=== PATIENT | female | born 1960 | race African-American/Black ===

== ENCOUNTER 2016-12-24 23:49 | Inpatient (IN) | payer MEDICAID, OTHER ==
[~2016-12-24] VITALS: Ht 162.6 cm; Wt 63.5 kg
[~2016-12-24 23:49] MED LIST: AZITHROMYCIN250 MG ORAL; NORCO 5-325 TA1 EAC1 ORAL; PREDNISONE50 MG ORAL
[2016-12-25] VITALS (9 sets, daily range): BP systolic 110–156; BP diastolic 55–111
[2016-12-25 01:05] LABS: BASOPHILS % (AUTO) 1.7 % (0.0-2.0); EOSINOPHILS % (AUTO) 2.9 % (0.0-3.0); LYMPHOCYTES % (AUTO) 32.5 % (20.0-45.0); MEAN CORPUSCULAR HEMOGLOBIN 28.5 PG (27.0-31.0); MEAN CORPUSCULAR HGB CONC 32.4 G/DL (32.0-36.0); MEAN CORPUSCULAR VOLUME 88 FL (80-99); MEAN PLATELET VOLUME 9.8 FL (6.5-10.1); MONOCYTES % (AUTO) 8.8 % (1.0-10.0); PLATELET COUNT 226 K/UL (150-450); RED BLOOD COUNT 5.02 M/UL (4.20-5.40); RED CELL DISTRIBUTION WIDTH 19.4 % (11.6-14.8); WHITE BLOOD COUNT 8.2 K/UL (4.8-10.8)
[2016-12-25 01:27] LABS: ALANINE AMINOTRANSFERASE 17 U/L (3-33); ALBUMIN/GLOBULIN RATIO 0.9 (1.0-2.7); ANION GAP 20 (5-15); ASPARTATE AMINO TRANSFERASE 34 U/L (5-40); CALCIUM 9.2 mg/dL (8.6-10.2); CARBON DIOXIDE 21 mEQ/L (20-30); CHLORIDE 93 mEQ/L (98-107); CREATININE 1.7 mg/dL (0.5-0.9); GLOMERULAR FILTRATION RATE 37.9 mL/min (>60); HEMOLYSIS 133; POTASSIUM 5.2 mEQ/L (3.4-4.9); SODIUM 134 mEQ/L (135-145); TOTAL PROTEIN 8.3 g/dL (6.6-8.7)
[2016-12-25 01:32] LABS: APPEARANCE,URINE CLEAR; KETONES,URINE NEGATIVE (NEGATIVE); LEUKOCYTE ESTERASE ,URINE NEGATIVE (NEGATIVE); NITRITE,URINE NEGATIVE (NEGATIVE); PH,URINE 6.5 (4.5-8.0); UROBILINOGEN,URINE NORMAL MG/DL (0.0-1.0)
[2016-12-25 01:33] LABS: TROPONIN I < 0.30 ng/mL (<=0.30)
[2016-12-25 01:33] LABS: PROTEIN,URINE NEGATIVE (NEGATIVE)
[2016-12-25 02:32] LABS: CKMB 2.8 ng/mL (< 3.8)
[2016-12-25] MEDS ORDERED: Morphine Sulfate 4mg/ml Inj IVP ONE (04:15)
[2016-12-25] MEDS ORDERED: Sodium Polystyrene Sulfonate 15gm Powder ORAL ONE (04:15)
[2016-12-25] MEDS ORDERED: DiphenhydrAMINE 50mg/ml Inj IVP ONE (04:45)
[2016-12-25] MEDS ORDERED: VENTOLIN HFA18 GM INH (05:42)
[2016-12-25] MEDS ORDERED: BENAZEPRIL HCL20 MG ORAL (05:42)
[2016-12-25] MEDS ORDERED: DIGOXIN125 MCG ORAL (05:42)
[2016-12-25] MEDS ORDERED: AMLODIPINE BESYL5 MG ORAL (05:42)
[2016-12-25] MEDS ORDERED: FUROSEMIDE40 MG ORAL (05:42)
[2016-12-25] MEDS ORDERED: ATORVASTATIN CA20 MG ORAL (05:42)
[2016-12-25] MEDS ORDERED: OMEPRAZOLE20 M3 ORAL (05:42)
[2016-12-25] MEDS ORDERED: POTASSIUM CHLOR8 ME3 PO (05:42)
[2016-12-25] MEDS ORDERED: AZITHROMYCIN250 MG ORAL (05:42)
--- NOTE | 2016-12-25 06:26 | Emergency Room Report ---
History of Present Illness General Chief Complaint: Vomiting Source: Patient Present Illness HPI 55-year-old female presents to ED for evaluation. Patient states she's been feeling dizzy with vomiting x1 day. Feels weak. States she has a pacemaker. Feels palpitations at times. Denies any chest pain or shortness of breath. Denies any abdominal pain. No other aggravating or relieving factors. Denies any other associated symptoms Allergies: Coded Allergies: ASPIRIN (Unverified Allergy, Unknown, 10/13/14) PENICILLINS (Unverified Allergy, Unknown, 10/13/14) Patient History Past Medical History: HTN, COPD Past Surgical History: pacemaker Pertinent Family History: none Social History: Denies: alcohol use, drug use, smoking Now: No Immunizations: UTD Reviewed Nursing Documentation: PMH: Agreed, PSxH: Agreed Nursing Documentation-PMH Hx Hypertension: Yes Hx Pacemaker: Yes Hx Asthma: Yes Hx COPD: Yes Review of Systems All Other Systems: negative except mentioned in HPI Physical Exam Vital Signs Date Time Temp Pulse Resp B/P Pulse Ox O2 Delivery O2 Flow Rate FiO2 12/25/16 00:01 97.0 82 16 131/80 100 Room Air Sp02 EP Interpretation: reviewed, normal General Appearance: no apparent distress, alert, GCS 15, non-toxic Head: normocephalic, atraumatic Eyes: bilateral eye PERRL, bilateral eye normal inspection ENT: hearing grossly normal, normal pharynx, no angioedema, normal voice Neck: full range of motion, supple/symm/no masses Respiratory: chest non-tender, lungs clear, normal breath sounds, speaking full sentences Cardiovascular #1: regular rate, rhythm, no edema Cardiovascular #2: 2+ carotid (R), 2+ carotid (L), 2+ radial (R), 2+ radial (L) , 2+ dorsalis pedis (R), 2+ dorsalis pedis (L) Gastrointestinal: normal bowel sounds, non tender, soft, non-distended, no guarding, no rebound Rectal: deferred Genitourinary: normal inspection, no CVA tenderness Musculoskeletal: back normal, gait/station normal, normal range of motion, non- tender Neurologic: alert, oriented x3, responsive, motor strength/tone normal, sensory intact, speech normal Psychiatric: judgement/insight normal, memory normal, mood/affect normal, no suicidal/homicidal ideation Reflexes: 3+ bicep (R), 3+ bicep (L), 3+ tricep (R), 3+ tricep (L), 3+ knee (R) , 3+ knee (L) Skin: normal color, no rash, warm/dry, well hydrated Lymphatic: no adenopathy Medical Decision Making Diagnostic Impression: Primary Impression: Palpitations Additional Impressions: Dizziness ARF (acute renal failure) Qualified Codes: N17.9 - Acute kidney failure, unspecified Hyperkalemia, diminished renal excretion ER Course Hospital Course 55-year-old female presents ED complaining of dizziness, nausea, palpitations Differential diagnoses include: MN/unstable angina, dehydration, arrythmia Clinical course Patient placed on 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 After initial history and physical I ordered labs, EKG, chest x-ray, IVFs, zofran labs reviewed- no leukocytosis, hb/hct stable, Cr 1.7, K 5.2, trop negative EKG - LBBB, no ischemic changes Chest x-ray- cardiomegaly. pacemaker given kayexelate Case discussed with and he agreed to accept the patient to his service for further care and support I. I feel this is a highly complex case requiring extensive working including EKG/Rhythm strip, Xray/CT/US, Blood/urine lab work, repeat exams while in ED, and administration of strong opiates/narcotics for pain control, admission to hospital or close patient follow up. Diagnosis - palptations, dizziness, ARF, hyperkalemia admitted to telemetry in serious condition Labs Test 12/25/16 00:50 12/25/16 01:08 White Blood Count 8.2 K/UL (4.8-10.8) Red Blood Count 5.02 M/UL (4.20-5.40) Hemoglobin 14.3 G/DL (12.0-16.0) Hematocrit 44.3 % (37.0-47.0) Mean Corpuscular Volume 88 FL (80-99) Mean Corpuscular Hemoglobin 28.5 PG (27.0-31.0) Mean Corpuscular Hemoglobin Concent 32.4 G/DL (32.0-36.0) Red Cell Distribution Width 19.4 % (11.6-14.8) Platelet Count 226 K/UL (150-450) Mean Platelet Volume 9.8 FL (6.5-10.1) Neutrophils (%) (Auto) 54.0 % (45.0-75.0) Lymphocytes (%) (Auto) 32.5 % (20.0-45.0) Monocytes (%) (Auto) 8.8 % (1.0-10.0) Eosinophils (%) (Auto) 2.9 % (0.0-3.0) Basophils (%) (Auto) 1.7 % (0.0-2.0) Sodium Level 134 mEQ/L (135-145) Potassium Level 5.2 mEQ/L (3.4-4.9) Chloride Level 93 mEQ/L (98-107) Carbon Dioxide Level 21 mEQ/L (20-30) Anion Gap 20 (5-15) Blood Urea Nitrogen 32 mg/dL (7-23) Creatinine 1.7 mg/dL (0.5-0.9) Estimat Glomerular Filtration Rate 37.9 mL/min (>60) Glucose Level 99 mg/dL (74-106) Calcium Level 9.2 mg/dL (8.6-10.2) Total Bilirubin < 0.2 mg/dL (0.0-1.2) Aspartate Amino Transf (AST/SGOT) 34 U/L (5-40) Alanine Aminotransferase (ALT/SGPT) 17 U/L (3-33) Alkaline Phosphatase 110 U/L (35-104) Total Creatine Kinase 67 U/L (26-140) Creatine Kinase MB 2.8 ng/mL (< 3.8) Creatine Kinase MB Relative Index 4.1 Troponin I < 0.30 ng/mL (<=0.30) Total Protein 8.3 g/dL (6.6-8.7) Albumin 4.0 g/dL (3.5-5.2) Globulin 4.3 g/dL Albumin/Globulin Ratio 0.9 (1.0-2.7) Urine Color Pale yellow Urine Appearance Clear Urine pH 6.5 (4.5-8.0) Urine Specific [place] 1.005 (1.005-1.035) Urine Protein Negative (NEGATIVE) Urine Glucose (UA) Negative (NEGATIVE) Urine Ketones Negative (NEGATIVE) Urine Occult Blood Negative (NEGATIVE) Urine Nitrite Negative (NEGATIVE) Urine Bilirubin Negative (NEGATIVE) Urine Urobilinogen Normal MG/DL (0.0-1.0) Urine Leukocyte Esterase Negative (NEGATIVE) EKG Diagnostic Results Rate: normal Rhythm: NSR ST Segments: other - LBBB ASA given to the pt in ED: No Rhythm Strip Diag. Results EP Interpretation: yes Rhythm: NSR, no PVC's, no ectopy Chest X-Ray Diagnostic Results EP Interpretation: Yes Findings: no pneumothorax, no acute cardiopulmonary disease, other - cardiomegaly. pacemaker. Number of Views: 1 Last Vital Signs Date Time Temp Pulse Resp B/P Pulse Ox O2 Delivery O2 Flow Rate FiO2 12/25/16 04:50 97.0 12/25/16 04:10 87 18 138/68 100 Room Air Status: improved Disposition: ADMITTED INPATIENT Condition: Serious Referrals: [facility],REFERRING (PCP) ANNA MAIRE MONTOYA M.D. December 25, 2016 06:26
--- NOTE | 2016-12-25 07:42 | Cardiology Progress Note ---
Assessment/Plan Assessment/Plan fall non sycopal htn med noncompliance renal insuf ? chronicity hs of icd implantation chf hyperlipidemia obesity asthma is walking in sue halls not appear in any respiratory distress hold dig check level resume lasix if ok with renal resume acei echo repeat labs in am [id number] Objective Last 24 Hour Vital Signs Date Time Temp Pulse Resp B/P Pulse Ox O2 Delivery O2 Flow Rate FiO2 12/25/16 07:33 96.9 93 18 111/70 100 Room Air 12/25/16 06:48 97.4 88 20 130/77 98 Room Air 12/25/16 06:25 97.0 83 17 137/71 100 Room Air 12/25/16 06:10 97.6 83 17 137/71 100 Room Air 12/25/16 04:50 97.0 12/25/16 04:10 97.5 87 18 138/68 100 Room Air 12/25/16 02:10 97.5 81 18 133/81 100 Room Air 12/25/16 00:10 97.0 78 16 131/80 100 Room Air 12/25/16 00:01 97.0 82 16 131/80 100 Room Air Intake and Output 12/24/16 12/25/16 19:00 07:00 Intake Total 500 ml Balance 500 ml Intake IV Total 500 ml # Voids 2 Laboratory Tests Test 12/25/16 00:50 12/25/16 01:08 White Blood Count 8.2 K/UL (4.8-10.8) Red Blood Count 5.02 M/UL (4.20-5.40) Hemoglobin 14.3 G/DL (12.0-16.0) Hematocrit 44.3 % (37.0-47.0) Mean Corpuscular Volume 88 FL (80-99) Mean Corpuscular Hemoglobin 28.5 PG (27.0-31.0) Mean Corpuscular Hemoglobin Concent 32.4 G/DL (32.0-36.0) Red Cell Distribution Width 19.4 % (11.6-14.8) H Platelet Count 226 K/UL (150-450) Mean Platelet Volume 9.8 FL (6.5-10.1) Neutrophils (%) (Auto) 54.0 % (45.0-75.0) Lymphocytes (%) (Auto) 32.5 % (20.0-45.0) Monocytes (%) (Auto) 8.8 % (1.0-10.0) Eosinophils (%) (Auto) 2.9 % (0.0-3.0) Basophils (%) (Auto) 1.7 % (0.0-2.0) Sodium Level 134 mEQ/L (135-145) L Potassium Level 5.2 mEQ/L (3.4-4.9) H Chloride Level 93 mEQ/L (98-107) L Carbon Dioxide Level 21 mEQ/L (20-30) Anion Gap 20 (5-15) H Blood Urea Nitrogen 32 mg/dL (7-23) H Creatinine 1.7 mg/dL (0.5-0.9) H Estimat Glomerular Filtration Rate 37.9 mL/min (>60) Glucose Level 99 mg/dL (74-106) Calcium Level 9.2 mg/dL (8.6-10.2) Total Bilirubin < 0.2 mg/dL (0.0-1.2) Aspartate Amino Transf (AST/SGOT) 34 U/L (5-40) Alanine Aminotransferase (ALT/SGPT) 17 U/L (3-33) Alkaline Phosphatase 110 U/L (35-104) H Total Creatine Kinase 67 U/L (26-140) Creatine Kinase MB 2.8 ng/mL (< 3.8) Creatine Kinase MB Relative Index 4.1 Troponin I < 0.30 ng/mL (<=0.30) Total Protein 8.3 g/dL (6.6-8.7) Albumin 4.0 g/dL (3.5-5.2) Globulin 4.3 g/dL Albumin/Globulin Ratio 0.9 (1.0-2.7) L Urine Color Pale yellow Urine Appearance Clear Urine pH 6.5 (4.5-8.0) Urine Specific [place] 1.005 (1.005-1.035) Urine Protein Negative (NEGATIVE) Urine Glucose (UA) Negative (NEGATIVE) Urine Ketones Negative (NEGATIVE) Urine Occult Blood Negative (NEGATIVE) Urine Nitrite Negative (NEGATIVE) Urine Bilirubin Negative (NEGATIVE) Urine Urobilinogen Normal MG/DL (0.0-1.0) Urine Leukocyte Esterase Negative (NEGATIVE) JAQUELINE BARRAZA December 25, 2016 07:42
[2016-12-25] MEDS ORDERED: Norco 5mg/325mg tab ORAL PRN (08:00)
[2016-12-25] MEDS ORDERED: Mylanta II UD 30ml ORAL PRN (08:00)
[2016-12-25] MEDS ORDERED: Metoclopramide 10mg/2ml Inj IVP PRN (08:00)
[2016-12-25] MEDS ORDERED: Nitroglycerin Subl 0.4mg tab (Bottle Of 25) SL PRN (08:00)
[2016-12-25] MEDS ORDERED: LORazepam Inj 2mg/ml 1ml IV PRN (08:00)
[2016-12-25] MEDS ORDERED: Lisinopril 20mg tab ORAL SCH (09:00)
[2016-12-25] MEDS ORDERED: Digoxin 0.125mg tab ORAL SCH (09:00)
[2016-12-25] MEDS: Pantoprazole Inj IV SCH (09:07)
[2016-12-25] MEDS: PREDNISONE 50 MG ORAL SCH (09:07)
[2016-12-25] MEDS: D5 1/2NS 1,000 ML IV SCH ×2 (09:08→21:47)
[2016-12-25] MEDS: Heparin 5000 units/ml inj SUBQ SCH ×2 (09:15→20:45)
[2016-12-25] MEDS: Morphine Sulfate 2mg/ml Inj IVP PRN ×3 (09:23→23:48)
[2016-12-25 11:31] LABS: ALANINE AMINOTRANSFERASE 15 U/L (3-33); ALBUMIN/GLOBULIN RATIO 1.1 (1.0-2.7); ANION GAP 15 (5-15); ASPARTATE AMINO TRANSFERASE 27 U/L (5-40); CALCIUM 9.1 mg/dL (8.6-10.2); CARBON DIOXIDE 25 mEQ/L (20-30); CHLORIDE 100 mEQ/L (98-107); CREATININE 1.5 mg/dL (0.5-0.9); GLOMERULAR FILTRATION RATE 43.9 mL/min (>60); HEMOLYSIS 0; MAGNESIUM 1.9 mg/dL (1.7-2.5); POTASSIUM 4.4 mEQ/L (3.4-4.9); SODIUM 140 mEQ/L (135-145); TOTAL PROTEIN 7.6 g/dL (6.6-8.7); URIC ACID 10.7 mg/dL (3.0-7.5)
[2016-12-25] MEDS: Albuterol 90mcg Inhaler 8gm INH SCH ×3 (12:04→23:41)
--- NOTE | 2016-12-25 12:32 | Diagnostic Imaging Report ---
Indication: Chest pain Technique: One view of the chest Comparison: 10/13/2014 Findings: The heart is enlarged. Again demonstrated is a left chest biventricular AICD. No definite acute infiltrates, effusions, or congestion. Impression: Cardiomegaly. No definite acute process
--- NOTE | 2016-12-25 13:02 | GI Initial Consult Note ---
History of Present Illness General Date patient seen: December 25, 2016 Time patient seen: 12:00 Reason for Hospitalization: Vomiting Referring physician: YENY SAXNEA Reason for Consultation: VOMITING x 2 days Present Illness HPI 55-year-old female presents to ED for evaluation. Patient states she's been feeling dizzy with vomiting x1 day. Feels weak. States she has a pacemaker. Feels palpitations at times. Denies any chest pain or shortness of breath. Denies any abdominal pain. No other aggravating or relieving factors. Denies any other associated symptoms. GI CONSULT: HPI noted above. GI consulted for vomiting x 2 days. Pt seen on floor, awake A&Ox4 NAD with no active s/sx of N/V/D. Denies any hematemesis or coffee grounds. Denies any dietary changes or recent travels. MJ user. Pt presents today with unremarkable CBC, elevated alkaline phosphatase, and electrolyte imbalance. Per patient has history of gastric ulcers by endoscopy. Denies any previous colonoscopy. Home Meds Active Scripts Hydrocodone Bit/Acetaminophen 5-325* (NORCO 5-325 TABLET*) 1 Each Tablet, 1 TAB ORAL Q4H Y for For Pain, #10 TAB Prov:JOSE WINSTONO. 10/13/14 Prednisone* (PREDNISONE*) 50 Mg Tablet, 50 MG ORAL DAILY, #7 TAB 0 Refills Prov:JOSE WINSTONO. 10/13/14 Azithromycin* (ZITHROMAX*) 250 Mg Tablet, 250 MG ORAL DAILY, #6 TAB Take two tablets by mouth today, then take one tablet by mouth daily for four days Prov:JOSE WINSTON D.O. 10/13/14 Reported Medications Benazepril Hcl* (BENAZEPRIL HCL*) 20 Mg Tablet, 20 MG ORAL DAILY, TAB 12/25/16 Potassium Chloride (POTASSIUM CHLORIDE) 8 Meq Tablet.er, 8 MEQ PO DAILY, TAB 12/25/16 Digoxin* (DIGOXIN*) 125 Mcg Tablet, 125 MCG ORAL DAILY, TAB 12/25/16 Amlodipine Besylate* (AMLODIPINE BESYLATE*) 5 Mg Tablet, 5 MG ORAL DAILY, TAB 12/25/16 Atorvastatin Calcium* (ATORVASTATIN CALCIUM*) 20 Mg Tablet, 10 MG ORAL BEDTIME, TAB 12/25/16 Azithromycin* (ZITHROMAX*) 250 Mg Tablet, 250 MG ORAL DAILY, TAB 12/25/16 Omeprazole (OMEPRAZOLE) 20 Mg Tablet.dr, 20 MG ORAL DAILY, TAB 12/25/16 Albuterol Sulfate (VENTOLIN HFA) 18 Gm Hfa.aer.ad, 2 PUFFS INH EVERY 6 HOURS, # 18 GM 0 Refills 12/25/16 Furosemide* (LASIX*) 40 Mg Tablet, 40 MG ORAL DAILY, TAB 12/25/16 Med list reviewed/reconciled: Yes Allergies: Coded Allergies: ASPIRIN (Unverified Allergy, Unknown, 10/13/14) PENICILLINS (Unverified Allergy, Unknown, 10/13/14) Patient History History Provided By: Patient, Medical Record PMH Narrative Past Medical History: HTN, COPD Past Surgical History: pacemaker Pertinent Family History: none Social History: Denies: alcohol use, drug use, smoking Now: No Immunizations: UTD Reviewed Nursing Documentation: PMH: Agreed, PSxH: Agreed Nursing Documentation-PMH Hx Hypertension: Yes Hx Pacemaker: Yes Hx Asthma: Yes Hx COPD: Yes Social History: Reports: alcohol use - occasional, drug use - MJ Review of Systems All Other Systems: limited Physical Exam Vital Signs Date Time Temp Pulse Resp B/P Pulse Ox O2 Delivery O2 Flow Rate FiO2 12/25/16 00:01 97.0 82 16 131/80 100 Room Air 12/25/16 12:05 21 Sp02 EP Interpretation: reviewed Labs Laboratory Tests Test 12/25/16 00:50 12/25/16 01:08 12/25/16 11:00 12/25/16 12:45 White Blood Count 8.2 K/UL (4.8-10.8) Red Blood Count 5.02 M/UL (4.20-5.40) Hemoglobin 14.3 G/DL (12.0-16.0) Hematocrit 44.3 % (37.0-47.0) Mean Corpuscular Volume 88 FL (80-99) Mean Corpuscular Hemoglobin 28.5 PG (27.0-31.0) Mean Corpuscular Hemoglobin Concent 32.4 G/DL (32.0-36.0) Red Cell Distribution Width 19.4 % (11.6-14.8) H Platelet Count 226 K/UL (150-450) Mean Platelet Volume 9.8 FL (6.5-10.1) Neutrophils (%) (Auto) 54.0 % (45.0-75.0) Lymphocytes (%) (Auto) 32.5 % (20.0-45.0) Monocytes (%) (Auto) 8.8 % (1.0-10.0) Eosinophils (%) (Auto) 2.9 % (0.0-3.0) Basophils (%) (Auto) 1.7 % (0.0-2.0) Sodium Level 134 mEQ/L (135-145) L 140 mEQ/L (135-145) Potassium Level 5.2 mEQ/L (3.4-4.9) H 4.4 mEQ/L (3.4-4.9) Chloride Level 93 mEQ/L (98-107) L 100 mEQ/L (98-107) Carbon Dioxide Level 21 mEQ/L (20-30) 25 mEQ/L (20-30) Anion Gap 20 (5-15) H 15 (5-15) Blood Urea Nitrogen 32 mg/dL (7-23) H 25 mg/dL (7-23) H Creatinine 1.7 mg/dL (0.5-0.9) H 1.5 mg/dL (0.5-0.9) H Estimat Glomerular Filtration Rate 37.9 mL/min (>60) 43.9 mL/min (>60) Glucose Level 99 mg/dL (74-106) 82 mg/dL (74-106) Calcium Level 9.2 mg/dL (8.6-10.2) 9.1 mg/dL (8.6-10.2) Total Bilirubin < 0.2 mg/dL (0.0-1.2) < 0.2 mg/dL (0.0-1.2) Aspartate Amino Transf (AST/SGOT) 34 U/L (5-40) 27 U/L (5-40) Alanine Aminotransferase (ALT/SGPT) 17 U/L (3-33) 15 U/L (3-33) Alkaline Phosphatase 110 U/L (35-104) H 102 U/L (35-104) Total Creatine Kinase 67 U/L (26-140) 62 U/L (26-140) Creatine Kinase MB 2.8 ng/mL (< 3.8) Creatine Kinase MB Relative Index 4.1 Troponin I < 0.30 ng/mL (<=0.30) Total Protein 8.3 g/dL (6.6-8.7) 7.6 g/dL (6.6-8.7) Albumin 4.0 g/dL (3.5-5.2) 4.0 g/dL (3.5-5.2) Globulin 4.3 g/dL 3.6 g/dL Albumin/Globulin Ratio 0.9 (1.0-2.7) L 1.1 (1.0-2.7) Urine Color Pale yellow Urine Appearance Clear Urine pH 6.5 (4.5-8.0) Urine Specific [place] 1.005 (1.005-1.035) Urine Protein Negative (NEGATIVE) Urine Glucose (UA) Negative (NEGATIVE) Urine Ketones Negative (NEGATIVE) Urine Occult Blood Negative (NEGATIVE) Urine Nitrite Negative (NEGATIVE) Urine Bilirubin Negative (NEGATIVE) Urine Urobilinogen Normal MG/DL (0.0-1.0) Urine Leukocyte Esterase Negative (NEGATIVE) Plasma/Serum Osmolality Pending Uric Acid 10.7 mg/dL (3.0-7.5) H Phosphorus Level 3.0 mg/dL (2.5-4.8) Magnesium Level 1.9 mg/dL (1.7-2.5) Thyroid Stimulating Hormone (TSH) 1.190 uIU/mL (0.300-4.500) Free Thyroxine 1.53 ng/dL (0.86-1.85) Free Triiodothyronine Pending Cortisol Pending Digoxin Level 0.3 ng/mL (0.5-2.0) L Urine Random Chloride Pending General Appearance: well appearing, no apparent distress, alert Head: normocephalic EENT: normal ENT inspection Neck: full range of motion Respiratory: normal breath sounds Cardiovascular: normal rate Gastrointestinal: normal inspection, non tender, soft Rectal: normal exam Musculoskeletal: normal inspection Neurologic: normal inspection, alert, oriented x3, responsive Psychiatric: normal inspection, judgement/insight normal, memory normal Skin: normal inspection, normal color, no rash Lymphatic: normal inspection, no adenopathy Current Medications Current Medications Medications (Trade) Dose Ordered Sig/Dino Route PRN Reason Start Time Stop Time Status Last Admin Dose Admin Acetaminophen (Tylenol) 650 mg Q4H PRN ORAL fever>100.5 12/25/16 08:00 01/24/17 07:59 Acetaminophen/ Hydrocodone Bitart ([place] 5/325) 1 tab Q4H PRN ORAL Moderate Pain (Pain Scale 4-6) 12/25/16 08:00 01/01/17 07:59 Al Hydroxide/Mg Hydroxide (Mylanta II) 30 ml Q6H PRN ORAL dyspepsia 12/25/16 08:00 01/24/17 07:59 Albuterol Sulfate (Proventil MDI) 2 puff EVERY 6 HOURS INH 12/25/16 12:00 01/24/17 11:59 12/25/16 12:04 Amlodipine Besylate (Norvasc) 5 mg DAILY ORAL 12/25/16 09:00 01/24/17 08:59 12/25/16 09:07 Atorvastatin Calcium (Lipitor) 10 mg BEDTIME ORAL 12/25/16 21:00 01/24/17 20:59 Dextrose (Dextrose 50%) STAT PRN IV Hypoglycemia 12/25/16 08:00 01/24/17 07:59 Dextrose/Sodium Chloride (D5 0.45% NS) 1,000 ml @ 75 mls/hr [id number] IV 12/25/16 09:00 01/24/17 08:59 12/25/16 09:08 Diphenhydramine HCl (Benadryl) 25 mg Q6H PRN ORAL Itching/Pruritis 12/25/16 08:00 01/24/17 07:59 Heparin Sodium (Porcine) (Heparin 5000 units/ml) 5,000 units EVERY 12 HOURS SUBQ 12/25/16 09:00 01/24/17 08:59 12/25/16 09:15 Lisinopril (Prinivil) 20 mg DAILY ORAL 12/25/16 09:00 01/24/17 08:59 12/25/16 09:07 Lorazepam (Ativan 2mg/ml 1ml) 1 mg Q4H PRN IV agitation 12/25/16 08:00 01/01/17 07:59 Metoclopramide HCl (Reglan) 5 mg Q6H PRN IVP Severe nausea 12/25/16 08:00 01/24/17 07:59 Morphine Sulfate (Morphine Sulfate) 2 mg Q4H PRN IVP severe Pain (Pain Scale 7-10) 12/25/16 08:00 01/01/17 07:59 12/25/16 09:23 Nitroglycerin (Ntg) 0.4 mg Q5M X 3 DOSES PRN SL Prn Chest Pain 12/25/16 08:00 01/24/17 07:59 Ondansetron HCl (Zofran) 4 mg Q6H PRN IVP Nausea & Vomiting 12/25/16 08:00 01/24/17 07:59 12/25/16 09:23 Pantoprazole (Protonix) 40 mg DAILY IV 12/25/16 09:00 01/24/17 08:59 12/25/16 09:07 Polyethylene Glycol (Miralax) 17 gm HSPRN PRN ORAL Constipation 12/25/16 21:00 01/24/17 20:59 Prednisone 50 mg 50 mg DAILY ORAL 12/25/16 09:00 01/24/17 08:59 12/25/16 09:07 Promethazine HCl (Phenergan) 25 mg EVERY 8 HOURS PRN IV refractory nausea 12/25/16 08:00 01/24/17 07:59 Temazepam (Restoril) 15 mg HSPRN PRN ORAL Insomnia 12/25/16 21:00 01/01/17 20:59 GI: Plan Problems: (1) Vomiting (2) Electrolyte imbalance (3) Nausea (4) Hyperkalemia, diminished renal excretion Plan EGD scheduled for tomorrow. - cardiac diet, NPO @ MN. - hold all blood thinners. ordered utox zofran prn electrolyte replacement ppi fu lipase fu labs fu abd U/S recommend initial outpatient colonoscopy screening Discussed with Dr. Whitmore. Thank you for referring this patient, we will follow. Susan Ball N.P. December 25, 2016 13:02
--- NOTE | 2016-12-25 13:32 | Diagnostic Imaging Report ---
Indication: Abnormal liver function tests and renal function tests Technique: Schwab-scale and duplex images of the upper abdomen were obtained Comparison: None Findings: Gallbladder is unremarkable, without stones, wall thickening, nor pericholecystic fluid. Sonographic Gould's sign is negative. Common bile duct measures 3 mm in diameter. No intrahepatic biliary ductal dilatation. Liver demonstrates normal echogenicity, no focal abnormality. Portal vein and hepatic veins are patent. Pancreas is unremarkable. Spleen is unremarkable. Left kidney measures 8.9 cm in length. Right kidney measures 10.1 cm length. Both kidneys demonstrate normal echogenicity. There is no hydronephrosis. No focal abnormality. Unremarkable urinary bladder. Abdominal aorta is partially obscured by bowel gas, visualized portions are non-aneurysmal . There is a questionable ventral hernia Impression: Negative for gallstones or dilated ducts Equivocal ventral hernia Note incomplete visualization of the distal bowel aorta
--- NOTE | 2016-12-25 13:36 | History and Physical ---
History of Present Illness General Date patient seen: December 25, 2016 Reason for Hospitalization: Vomiting Present Illness HPI 55-year-old female with hx of ICD, cardiomyopathy presents to ED for evaluation of feeling dizzy with vomiting x1 day and with palpitations at times. Denies any chest pain or shortness of breath. Denies any abdominal pain. No other aggravating or relieving factors. Denies any other associated symptoms Allergies: Coded Allergies: ASPIRIN (Unverified Allergy, Unknown, 10/13/14) PENICILLINS (Unverified Allergy, Unknown, 10/13/14) Medication History Scheduled Albuterol Sulfate (Ventolin Hfa), 2 PUFFS INH EVERY 6 HOURS, (Reported) Amlodipine Besylate* (Amlodipine Besylate*), 5 MG ORAL DAILY, (Reported) Atorvastatin Calcium* (Atorvastatin Calcium*), 10 MG ORAL BEDTIME, (Reported) Azithromycin* (Zithromax*), 250 MG ORAL DAILY Azithromycin* (Zithromax*), 250 MG ORAL DAILY, (Reported) Benazepril Hcl* (Benazepril Hcl*), 20 MG ORAL DAILY, (Reported) Digoxin* (Digoxin*), 125 MCG ORAL DAILY, (Reported) Furosemide* (Lasix*), 40 MG ORAL DAILY, (Reported) Omeprazole (Omeprazole), 20 MG ORAL DAILY, (Reported) Potassium Chloride (Potassium Chloride), 8 MEQ PO DAILY, (Reported) Prednisone* (Prednisone*), 50 MG ORAL DAILY Scheduled PRN Hydrocodone Bit/Acetaminophen 5-325* (Parmelee 5-325 Tablet*), 1 TAB ORAL Q4H PRN for For Pain Patient History Healthcare decision maker Resuscitation status Full Code Advanced Directive on File Review of Systems All Other Systems: negative except mentioned in HPI Physical Exam General Appearance: WD/WN Lines, tubes and drains: peripheral HEENT: normocephalic, atraumatic Neck: non-tender, normal alignment Respiratory/Chest: chest wall non-tender, lungs clear Cardiovascular/Chest: normal peripheral pulses, normal rate Abdomen: normal bowel sounds, non tender, hyperactive bowel sounds Extremities: normal range of motion Last 24 Hour Vital Signs Date Time Temp Pulse Resp B/P Pulse Ox O2 Delivery O2 Flow Rate FiO2 12/25/16 12:06 78 18 96 Room Air 21 12/25/16 12:05 78 18 95 Room Air 21 12/25/16 12:00 85 12/25/16 11:37 96.8 83 18 117/55 100 Room Air 12/25/16 09:07 111/70 12/25/16 09:07 93 111/70 12/25/16 08:00 103 12/25/16 07:33 96.9 93 18 111/70 100 Room Air 12/25/16 06:48 97.4 88 20 130/77 98 Room Air 12/25/16 06:25 97.0 83 17 137/71 100 Room Air 12/25/16 06:10 97.6 83 17 137/71 100 Room Air 12/25/16 04:50 97.0 12/25/16 04:10 97.5 87 18 138/68 100 Room Air 12/25/16 02:10 97.5 81 18 133/81 100 Room Air 12/25/16 00:10 97.0 78 16 131/80 100 Room Air 12/25/16 00:01 97.0 82 16 131/80 100 Room Air Intake and Output 12/24/16 12/25/16 19:00 07:00 Intake Total 500 ml Balance 500 ml IV Total 500 ml # Voids 2 Laboratory Tests Test 12/25/16 00:50 12/25/16 01:08 12/25/16 11:00 12/25/16 12:45 White Blood Count 8.2 K/UL (4.8-10.8) Red Blood Count 5.02 M/UL (4.20-5.40) Hemoglobin 14.3 G/DL (12.0-16.0) Hematocrit 44.3 % (37.0-47.0) Mean Corpuscular Volume 88 FL (80-99) Mean Corpuscular Hemoglobin 28.5 PG (27.0-31.0) Mean Corpuscular Hemoglobin Concent 32.4 G/DL (32.0-36.0) Red Cell Distribution Width 19.4 % (11.6-14.8) H Platelet Count 226 K/UL (150-450) Mean Platelet Volume 9.8 FL (6.5-10.1) Neutrophils (%) (Auto) 54.0 % (45.0-75.0) Lymphocytes (%) (Auto) 32.5 % (20.0-45.0) Monocytes (%) (Auto) 8.8 % (1.0-10.0) Eosinophils (%) (Auto) 2.9 % (0.0-3.0) Basophils (%) (Auto) 1.7 % (0.0-2.0) Sodium Level 134 mEQ/L (135-145) L 140 mEQ/L (135-145) Potassium Level 5.2 mEQ/L (3.4-4.9) H 4.4 mEQ/L (3.4-4.9) Chloride Level 93 mEQ/L (98-107) L 100 mEQ/L (98-107) Carbon Dioxide Level 21 mEQ/L (20-30) 25 mEQ/L (20-30) Anion Gap 20 (5-15) H 15 (5-15) Blood Urea Nitrogen 32 mg/dL (7-23) H 25 mg/dL (7-23) H Creatinine 1.7 mg/dL (0.5-0.9) H 1.5 mg/dL (0.5-0.9) H Estimat Glomerular Filtration Rate 37.9 mL/min (>60) 43.9 mL/min (>60) Glucose Level 99 mg/dL (74-106) 82 mg/dL (74-106) Calcium Level 9.2 mg/dL (8.6-10.2) 9.1 mg/dL (8.6-10.2) Total Bilirubin < 0.2 mg/dL (0.0-1.2) < 0.2 mg/dL (0.0-1.2) Aspartate Amino Transf (AST/SGOT) 34 U/L (5-40) 27 U/L (5-40) Alanine Aminotransferase (ALT/SGPT) 17 U/L (3-33) 15 U/L (3-33) Alkaline Phosphatase 110 U/L (35-104) H 102 U/L (35-104) Total Creatine Kinase 67 U/L (26-140) 62 U/L (26-140) Creatine Kinase MB 2.8 ng/mL (< 3.8) Creatine Kinase MB Relative Index 4.1 Troponin I < 0.30 ng/mL (<=0.30) Total Protein 8.3 g/dL (6.6-8.7) 7.6 g/dL (6.6-8.7) Albumin 4.0 g/dL (3.5-5.2) 4.0 g/dL (3.5-5.2) Globulin 4.3 g/dL 3.6 g/dL Albumin/Globulin Ratio 0.9 (1.0-2.7) L 1.1 (1.0-2.7) Urine Color Pale yellow Urine Appearance Clear Urine pH 6.5 (4.5-8.0) Urine Specific [place] 1.005 (1.005-1.035) Urine Protein Negative (NEGATIVE) Urine Glucose (UA) Negative (NEGATIVE) Urine Ketones Negative (NEGATIVE) Urine Occult Blood Negative (NEGATIVE) Urine Nitrite Negative (NEGATIVE) Urine Bilirubin Negative (NEGATIVE) Urine Urobilinogen Normal MG/DL (0.0-1.0) Urine Leukocyte Esterase Negative (NEGATIVE) Plasma/Serum Osmolality Pending Uric Acid 10.7 mg/dL (3.0-7.5) H Phosphorus Level 3.0 mg/dL (2.5-4.8) Magnesium Level 1.9 mg/dL (1.7-2.5) Thyroid Stimulating Hormone (TSH) 1.190 uIU/mL (0.300-4.500) Free Thyroxine 1.53 ng/dL (0.86-1.85) Free Triiodothyronine Pending Cortisol Pending Digoxin Level 0.3 ng/mL (0.5-2.0) L Urine Random Chloride Pending Height (Feet): 5 Height (Inches): 4.00 Weight (Pounds): 140 Medications Current Medications Medications (Trade) Dose Ordered Sig/Dino Route PRN Reason Start Time Stop Time Status Last Admin Dose Admin Acetaminophen (Tylenol) 650 mg Q4H PRN ORAL fever>100.5 12/25/16 08:00 01/24/17 07:59 Acetaminophen/ Hydrocodone Bitart (Parmelee 5/325) 1 tab Q4H PRN ORAL Moderate Pain (Pain Scale 4-6) 12/25/16 08:00 01/01/17 07:59 Al Hydroxide/Mg Hydroxide (Mylanta II) 30 ml Q6H PRN ORAL dyspepsia 12/25/16 08:00 01/24/17 07:59 Albuterol Sulfate (Proventil MDI) 2 puff EVERY 6 HOURS INH 12/25/16 12:00 01/24/17 11:59 12/25/16 12:04 Amlodipine Besylate (Norvasc) 5 mg DAILY ORAL 12/25/16 09:00 01/24/17 08:59 12/25/16 09:07 Atorvastatin Calcium (Lipitor) 10 mg BEDTIME ORAL 12/25/16 21:00 01/24/17 20:59 Dextrose (Dextrose 50%) STAT PRN IV Hypoglycemia 12/25/16 08:00 01/24/17 07:59 Dextrose/Sodium Chloride (D5 0.45% NS) 1,000 ml @ 75 mls/hr [id number] IV 12/25/16 09:00 01/24/17 08:59 12/25/16 09:08 Diphenhydramine HCl (Benadryl) 25 mg Q6H PRN ORAL Itching/Pruritis 12/25/16 08:00 01/24/17 07:59 12/25/16 12:58 Heparin Sodium (Porcine) (Heparin 5000 units/ml) 5,000 units EVERY 12 HOURS SUBQ 12/25/16 09:00 01/24/17 08:59 12/25/16 09:15 Lisinopril (Prinivil) 20 mg DAILY ORAL 12/25/16 09:00 01/24/17 08:59 12/25/16 09:07 Lorazepam (Ativan 2mg/ml 1ml) 1 mg Q4H PRN IV agitation 12/25/16 08:00 01/01/17 07:59 Metoclopramide HCl (Reglan) 5 mg Q6H PRN IVP Severe nausea 12/25/16 08:00 01/24/17 07:59 Morphine Sulfate (Morphine Sulfate) 2 mg Q4H PRN IVP severe Pain (Pain Scale 7-10) 12/25/16 08:00 01/01/17 07:59 12/25/16 09:23 Nitroglycerin (Ntg) 0.4 mg Q5M X 3 DOSES PRN SL Prn Chest Pain 12/25/16 08:00 01/24/17 07:59 Ondansetron HCl (Zofran) 4 mg Q6H PRN IVP Nausea & Vomiting 12/25/16 08:00 01/24/17 07:59 12/25/16 09:23 Pantoprazole (Protonix) 40 mg DAILY IV 12/25/16 09:00 01/24/17 08:59 12/25/16 09:07 Polyethylene Glycol (Miralax) 17 gm HSPRN PRN ORAL Constipation 12/25/16 21:00 01/24/17 20:59 Prednisone 50 mg 50 mg DAILY ORAL 12/25/16 09:00 01/24/17 08:59 12/25/16 09:07 Promethazine HCl (Phenergan) 25 mg EVERY 8 HOURS PRN IV refractory nausea 12/25/16 08:00 01/24/17 07:59 Temazepam (Restoril) 15 mg HSPRN PRN ORAL Insomnia 12/25/16 21:00 01/01/17 20:59 Assessment/Plan Problem List: (1) Vomiting ICD Codes: R11.10 - Vomiting, unspecified SNOMED: 809219632 (2) ARF (acute renal failure) ICD Codes: N17.9 - Acute kidney failure, unspecified SNOMED: 60296845 Qualifiers: Qualified Codes: N17.9 - Acute kidney failure, unspecified (3) ICD (implantable cardioverter-defibrillator) in place ICD Codes: Z95.810 - Presence of automatic (implantable) cardiac defibrillator SNOMED: 750238764, [id number] (4) Cardiomyopathy ICD Codes: I42.9 - Cardiomyopathy, unspecified SNOMED: 91234580 Assessment/Plan IV fluids NPO GI evaluaiton cardio to see BRENDA GRANGER December 25, 2016 13:36
--- NOTE | 2016-12-25 14:44 | Consultation ---
Consult Note Consult Note Chief Complaint: Vomiting HPI 55-year-old female presents to ED for evaluation. Patient states she's been feeling dizzy with vomiting x1 day. Feels weak. States she has a pacemaker. Feels palpitations at times. Denies any chest pain or shortness of breath. Denies any abdominal pain. No other aggravating or relieving factors. Denies any other associated symptoms Allergies: ASPIRIN (Unverified Allergy, Unknown, 10/13/14) PENICILLINS (Unverified Allergy, Unknown, 10/13/14) Past Medical History: HTN, COPD Past Surgical History: pacemaker Social History: Denies: alcohol use, drug use, smoking Hx Hypertension: Yes Hx Pacemaker: Yes Hx Asthma: Yes Hx COPD: Yes . Assessment/Plan (1) Vomiting palpitation and dizziness are the initial presentation: Findings: (2) ARF (acute renal failure), High K : due to Lasix and Willie inhibitors (3) ICD (implantable cardioverter-defibrillator) in place (4) Cardiomyopathy and low Ej Fx 45% Plan: Slow Hydrate- monitor renal parameter avoid nephrotoxics Optimize cardiac and pulmonary status; taper steroids. MARTA CORADO December 25, 2016 14:44
[2016-12-25 15:29] LABS: APPEARANCE,URINE CLEAR; KETONES,URINE NEGATIVE (NEGATIVE); LEUKOCYTE ESTERASE ,URINE NEGATIVE (NEGATIVE); NITRITE,URINE NEGATIVE (NEGATIVE); PH,URINE 7 (4.5-8.0); PROTEIN,URINE 2+ (NEGATIVE); UROBILINOGEN,URINE NORMAL MG/DL (0.0-1.0)
--- NOTE | 2016-12-25 15:31 | Consultation ---
DATE OF CONSULTATION: 12/25/2016 CARDIOLOGY CONSULTATION: REFERRING PHYSICIAN: Mellisa Ko M.D. REASON FOR REFERRAL: Shortness of breath. HISTORY OF PRESENT ILLNESS: This is a 55-year-old female who has a history of she calls of pacemaker implantation and ran out of her medications for blood pressure approximately two days ago. fell. She has been short of breath for few days. She does have occasionally waking up at night because of shortness of breath. She cannot lay flat because dizziness. She has occasional palpitations. She really did not have any chest pain. She has dyspnea on exertion as well. PAST MEDICAL HISTORY: Positive for high blood pressure and high cholesterol. No prior heart attacks, although she has a pacemaker " implantation". No cancer. No stroke. No hepatitis or tuberculosis. She does have history of asthma. She does have history of peptic ulcer disease. She kidneys problems before. No thyroid problems, anemia, arthritis, or blood clots. ALLERGIES: She is allergic to aspirin and penicillin. SOCIAL HISTORY: She quit smoking number of years ago. She drinks alcoholic beverages. She used marijuana before. REVIEW OF SYSTEMS: GI: Negative. Genitourinary: Negative. Pulmonary: Positive for coughing and wheezing. Constitutional: She has had some fevers and has some chills . PHYSICAL EXAMINATION: GENERAL: Shows to be elderly female overweight, in no respiratory distress. VITAL SIGNS: The patient's blood pressure is 130/77 with a heart rate of 88, temperature of 97.8 degrees, and 98% saturation on room air. NECK: Supple. No jugular venous distention. LUNGS: Clear breath sounds although decreased on the bases bilaterally. CARDIAC: Regular rate and rhythm. No heaves, thrills, or rubs are noted. ABDOMEN: Soft and obese. Positive bowel sounds. EXTREMITIES: Really, no significant clubbing, cyanosis, nor there is no any edema. NEUROLOGIC: She is awake, alert, responsive, and in no apparent respiratory distress. LABORATORY AND DIAGNOSTIC DATA: Chest x-ray is apparently been performed although I am unable to download the study on the computer system. The emergency room physician read it as showing cardiomegaly and pacemaker. Her prior chest x-ray she has a defibrillator implantation. Her EKG shows changes consistent with left bundle-branch conduction defect and comparison with her old EKG in 2013 appears relatively unchanged. White count 8.2, hemoglobin 14.3, and platelet count 226,000. Sodium 134, potassium 5.2, chloride 92, bicarbonate 21, BUN 32, creatinine 1.7, and glucose of 99. The first set of troponin is negative. UA is unremarkable. ASSESSMENT: 1. Nonsyncopal fall. 2. Hypertension. 3. Noncompliance with medications. 4. Acute renal insufficiency , unknown chronicity. 5. History of Implantable cardioverter-defibrillator implantation. 6. Congestive heart failure . 7. Hyperlipidemia. 8. Obesity . 9. Asthma. PLAN: Dr. Ko, this patient was seen in cardiac consultation. The patient is actually walking around the hospital, but does not appear to be in any respiratory distress. Echocardiogram is pending. Digoxin was ordered, but I Digoxin level. Resume with Nephrology. Resume REJI inhibitors. Echocardiogram will be ordered. Repeat labs in the morning. Ralph Parada M.D. DR: Lucio JOB#: [id number] CC:
[2016-12-25 15:56] LABS: RBC,URINE 0-2 /HPF (0 - 2); WBC,URINE 0 /HPF (0 - 2)
[2016-12-25] MEDS ORDERED: D5 1/2NS 1000ml IV ONE (17:51)
--- NOTE | 2016-12-25 18:33 | Cardiology Report ---
APPROVED REPORT EKG Measurement Heart [id number] Sinus rhythm with 1st degree AV block Biatrial enlargement Left bundle branch block Abnormal ECG
[2016-12-25] MEDS ORDERED: Miralax 17gm pkt ORAL PRN (21:00)
[2016-12-26] VITALS (11 sets, daily range): BP systolic 101–156; BP diastolic 51–111
[2016-12-26] MEDS: Morphine Sulfate 2mg/ml Inj IVP PRN ×2 (05:35→09:49)
--- NOTE | 2016-12-26 06:27 | Anethesia Preoperative Eval ---
Anesthesia Pre-op PMH/ROS General Date of Evaluation: December 26, 2016 Time of Evaluation: 08:00 Anesthesiologist: rafal ASA Score: ASA 3 Mallampati Score Class I : Soft palate, uvula, fauces, pillars visible Class II: Soft palate, uvula, fauces visible Class III: Soft palate, base of uvula visible Class IV: Only hard plate visible Mallampati Classification: Class II Surgeon: marguerite Diagnosis: ulcers Surgical Procedure: EGD diagnostic Anesthesia History: none Allergies: Coded Allergies: ASPIRIN (Unverified Allergy, Unknown, 10/13/14) PENICILLINS (Unverified Allergy, Unknown, 10/13/14) Medications: see eMAR Past Medical History Cardiovascular: Reports: HTN, other - pacemaker Pulmonary: Reports: COPD, asthma Gastrointestinal/Genitourinary: Reports: other - ulcers Musculoskeletal/Integumentary: Reports: other - back pain, hx/o leg fx repair PSxH Narrative: appy, leg fx rpair Anesthesia Pre-op Phys. Exam Physician Exam Last Vital Signs Date Time Temp Pulse Resp B/P Pulse Ox O2 Delivery O2 Flow Rate FiO2 12/26/16 06:05 97.4 12/26/16 04:00 75 12/26/16 04:00 20 101/51 99 Room Air 12/25/16 23:43 21 Constitutional: NAD Neurologic: CN 2-12 intact Cardiovascular: RRR Respiratory: CTA Gastrointestinal: S/NT/ND Airway Exam Mallampati Score: Class II MO: limited Neck: supple Teeth: missing Anesthesia Pre-op A/P Labs Chemistry Test 12/25/16 11:00 12/26/16 04:00 Sodium Level 140 mEQ/L (135-145) Potassium Level 4.4 mEQ/L (3.4-4.9) Chloride Level 100 mEQ/L (98-107) Carbon Dioxide Level 25 mEQ/L (20-30) Anion Gap 15 (5-15) Blood Urea Nitrogen 25 mg/dL (7-23) H Creatinine 1.5 mg/dL (0.5-0.9) H Estimat Glomerular Filtration Rate 43.9 mL/min (>60) Glucose Level 82 mg/dL (74-106) Uric Acid 10.7 mg/dL (3.0-7.5) H Calcium Level 9.1 mg/dL (8.6-10.2) Phosphorus Level 3.0 mg/dL (2.5-4.8) Magnesium Level 1.9 mg/dL (1.7-2.5) Total Bilirubin < 0.2 mg/dL (0.0-1.2) Aspartate Amino Transf (AST/SGOT) 27 U/L (5-40) Alanine Aminotransferase (ALT/SGPT) 15 U/L (3-33) Alkaline Phosphatase 102 U/L (35-104) Total Creatine Kinase 62 U/L (26-140) Total Protein 7.6 g/dL (6.6-8.7) Albumin 4.0 g/dL (3.5-5.2) Globulin 3.6 g/dL Albumin/Globulin Ratio 1.1 (1.0-2.7) Thyroid Stimulating Hormone (TSH) 1.190 uIU/mL (0.300-4.500) Free Thyroxine 1.53 ng/dL (0.86-1.85) Plasma/Serum Osmolality Pending Free Triiodothyronine Pending Cortisol Pending Risk Assessment & Plan Assessment: 55 y/o female with hx/o ulcer Status Change Before Surgery: No Pre-Antibiotics Drug: AROLDO Olivo December 26, 2016 06:27
[2016-12-26] MEDS ORDERED: Propofol 10mg/ml 20ml IV ONE (08:00)
[2016-12-26] MEDS ORDERED: Lidocaine 1% MPF 10mg/ml 5ml ONE (08:00)
--- NOTE | 2016-12-26 08:06 | Pre-Procedure Note/Attestation ---
Pre-Procedure Note/Attestation Complete Prior to Procedure Planned Procedure: not applicable Procedure Narrative: egd Indications for Procedure Pre-Operative Diagnosis: abd pain Attestation I attest that I discussed the nature of the procedure; its benefits; risks and complications; and alternatives (and the risks and benefits of such alternatives ), prior to the procedure, with the patient (or the patient's legal aircraft sales representative). I attest that, if there was a reasonable possibility of needing a blood transfusion, the patient (or the patient's legal aircraft sales representative) was given the [facility] standardized written summary, pursuant to the Oleg Devi Blood Safety Act ([place] Health and Safety Code # 1645, as amended). I attest that I re-evaluated the patient just prior to the surgery and that there has been no change in the patient's H&P, except as documented below: JAMES MORA December 26, 2016 08:05
[2016-12-26] MEDS: Heparin 5000 units/ml inj SUBQ SCH ×2 (08:07→20:45)
[2016-12-26] MEDS ORDERED: NS 550ML IV ONE (08:10)
[2016-12-26 08:13] LABS: BASOPHILS % (AUTO) 1.5 % (0.0-2.0); EOSINOPHILS % (AUTO) 0.2 % (0.0-3.0); LYMPHOCYTES % (AUTO) 23.7 % (20.0-45.0); MEAN CORPUSCULAR HEMOGLOBIN 28.4 PG (27.0-31.0); MEAN CORPUSCULAR HGB CONC 32.2 G/DL (32.0-36.0); MEAN CORPUSCULAR VOLUME 88 FL (80-99); MEAN PLATELET VOLUME 10.8 FL (6.5-10.1); MONOCYTES % (AUTO) 8.8 % (1.0-10.0); NEUTROPHILS % (AUTO) 65.8 % (45.0-75.0); PLATELET COUNT 192 K/UL (150-450); RED BLOOD COUNT 4.57 M/UL (4.20-5.40); WHITE BLOOD COUNT 7.4 K/UL (4.8-10.8)
[2016-12-26 08:25] LABS: CALCIUM 9.3 mg/dL (8.6-10.2); CREATININE 1.3 mg/dL (0.5-0.9); GLOMERULAR FILTRATION RATE 51.8 mL/min (>60); POTASSIUM 3.6 mEQ/L (3.4-4.9); TOTAL PROTEIN 7.2 g/dL (6.6-8.7)
--- NOTE | 2016-12-26 08:29 | Endoscopy Procedure Note ---
Endoscopy Procedure Note Indication for Procedure: abd pain Procedures Performed: EGD Operative Findings/Diagnosis: gastritis Specimen: yes Pt Tolerated Procedure Well: Yes Estimated Blood Loss: none Anesthesiologist: guido Anesthesia: MAC Implant(s) used?: No 50 yrs or older w/o bx or poly: Not Applicable 10yrs. F/U not recommended: Not Applicable JAMES MORA December 26, 2016 08:29
--- NOTE | 2016-12-26 08:47 | Immediate Post-Op Evaluation ---
Immediate Post-Op Evalulation Immediate Post-Op Evalulation Procedure: AROLDO Pina December 26, 2016 08:47
--- NOTE | 2016-12-26 08:51 | Immediate Post-Op Evaluation ---
Immediate Post-Op Evalulation Immediate Post-Op Evalulation Procedure: egd Date of Evaluation: December 26, 2016 Time of Evaluation: 08:49 IV Fluids: 0.9ns 100ml Blood Products: na Estimated Blood Loss: negligible Blood Pressure Systolic: 132 Blood Pressure Diastolic: 89 Pulse Rate: 89 Respiratory Rate: 18 O2 Sat by Pulse Oximetry: 99 Temperature (Fahrenheit): 97.2 Pain Score (1-10): 0 Nausea: No Vomiting: No Complications none Patient Status: awake, reacts, patent Hydration Status: adequate Drug: none AROLDO BIRCH December 26, 2016 08:51
[2016-12-26] MEDS ORDERED: Norco 5mg/325mg tab ORAL PRN (09:00)
[2016-12-26] MEDS ORDERED: Lisinopril 20mg tab ORAL SCH (09:00)
[2016-12-26] MEDS ORDERED: LORazepam Inj 2mg/ml 1ml IV PRN (09:00)
[2016-12-26] MEDS: Pantoprazole Inj IV SCH (09:41)
[2016-12-26] MEDS: PREDNISONE 50 MG ORAL SCH (09:42)
--- NOTE | 2016-12-26 10:16 | Procedure Note ---
DATE OF PROCEDURE: 12/26/2016 SURGEON: Stephen Whitmore M.D. PROCEDURE: Upper endoscopy with biopsy. ANESTHESIA: Per MANAGER TRANSMISSION, Brandie Tarrillmat. INSTRUMENT: Olympus adult flexible upper endoscope. INDICATION: Nausea, vomiting, and abdominal pain. REASON FOR PROCEDURE: The procedure, risks, benefits, and possible consequences, including hemorrhage, aspiration, perforation and infection, and alternative treatments, were explained to the patient/legal guardian by Dr. Stephen Whitmore and the patient/legal guardian understood and accepted these risks. PROCEDURE: After informed consent was obtained and the patient was adequately sedated. Olympus upper endoscope was advanced from mouth into the second portion of duodenum and retroflexion was performed in the stomach. The patient had diffuse gastritis. Random biopsy from antrum of the stomach was obtained to rule out H. pylori infection. In the duodenum, there was some inflammatory changes of the duodenal bulb. Biopsy from duodenum was obtained. The patient tolerated the procedure very well without any complication. FINDINGS: 1. Gastritis, status post biopsy. 2. Duodenitis, status biopsy. RECOMMENDATIONS: Follow up biopsies and treat accordingly. I want to thank, Dr. Ko, for this kind referral. Stephen Whitmore M.D. DR: Rupali JOB#: [id number] CC: Mellisa Ko M.D.; Fax#: [phone]
--- NOTE | 2016-12-26 10:55 | Cardiology Report ---
APPROVED REPORT EXAM: Two-dimensional and M-mode echocardiogram with Doppler and color Doppler. INDICATION Left Ventricular Function M-Mode DIMENSIONS IVSd0.9 (0.7-1.1cm)Left Atrium (MM)3.7 (1.6-4.0cm) LVDd4.4 (3.5-5.6cm)Aortic Root3.7 (2.0-3.7cm) PWd2.2 (0.7-1.1cm)Aortic Cusp Exc.2.2 (1.5-2.0cm) LVDs4.8 (2.5-4.0cm) PWs2.6 cm Technically difficult study due to poor acoustic windows. Study quality precludes accurate assessment of regional wall motion. Mild left ventricular enlargement by 2D. septal an apicl hypokineissi lateral and post wall seem to fucntion normally , other wall were not adequately visualized Left ventricular ejection fraction estimated to be 35-40 %. No evidence of ventricular hypertrophy. No evidence of pericardial fat or effusion. Mild bi-atrial enlargement by 2D. Right ventricular chamber sizes are within normal limits. Mild focal aortic valve sclerosis with adequate cusp excursion. Mildly thickened mitral valve leaflets with normal excursion. Mild mitral annulus and aortic root calcification. Pulmonic valve not well visualized. Normal tricuspid valve structure. IVC dilated at 1.6 cm with physiologic collapse. A color flow and spectral Doppler study was performed and revealed: No aortic regurgitation. Moderate mitral regurgitation. Mitral diastolic velocities suggest reduced left ventricular relaxation (Grade I). Mild tricuspid regurgitation. Tricuspid systolic velocities suggests peak right ventricular systolic pressure of 35 mmHg, consistent with mild pulmonary hypertension. No pulmonic regurgitation present.
[2016-12-26] MEDS: D5 1/2NS 1,000 ML IV SCH (11:35)
[2016-12-26] MEDS: Albuterol 90mcg Inhaler 8gm INH SCH ×2 (12:45→19:19)
--- NOTE | 2016-12-26 13:43 | General Progress Note ---
Assessment/Plan Status: stable Status Narrative Cr down to 1.3- endoscopy: Gastritis Assessment/Plan status; (1) Vomiting palpitation and dizziness are the initial presentation: Findings: (2) ARF (acute renal failure), High K : due to Lasix and Willie inhibitors (3) ICD (implantable cardioverter-defibrillator) in place (4) Cardiomyopathy and low Ej Fx 45% Plan: Slow Hydrate- monitor renal parameter avoid nephrotoxics Optimize cardiac and pulmonary status; taper steroids. per orders Subjective ROS Limited/Unobtainable: No Constitutional: Reports: malaise Allergies: Coded Allergies: ASPIRIN (Unverified Allergy, Unknown, 10/13/14) PENICILLINS (Unverified Allergy, Unknown, 10/13/14) Objective Last 24 Hour Vital Signs Date Time Temp Pulse Resp B/P Pulse Ox O2 Delivery O2 Flow Rate FiO2 12/26/16 12:47 77 18 98 Room Air 21 12/26/16 12:46 79 18 98 Room Air 21 12/26/16 12:00 87 12/26/16 11:54 96.9 77 17 120/74 98 Room Air 12/26/16 09:31 97.8 86 19 121/91 98 Room Air 12/26/16 09:00 98.0 83 24 144/90 100 Nasal Cannula 3.0 12/26/16 08:51 89 18 99 12/26/16 08:49 78 28 122/88 100 Simple Mask 8.0 12/26/16 08:44 80 28 122/87 100 Simple Mask 8.0 12/26/16 08:39 97.2 85 16 140/88 100 Simple Mask 8.0 12/26/16 08:32 105/60 12/26/16 08:32 77 105/60 12/26/16 08:00 71 12/26/16 08:00 96.5 77 17 105/60 97 Room Air 12/26/16 06:05 97.4 12/26/16 04:00 75 12/26/16 04:00 97.4 86 20 101/51 99 Room Air 12/26/16 00:00 98.2 95 20 156/111 92 Room Air 12/26/16 00:00 97.7 76 21 124/70 97 Room Air 12/26/16 00:00 82 12/25/16 23:43 79 20 100 Room Air 21 12/25/16 23:41 77 20 99 Room Air 21 12/25/16 20:00 90 12/25/16 20:00 98.2 95 20 156/111 92 Room Air 12/25/16 19:30 Room Air 21 12/25/16 19:30 Room Air 21 12/25/16 16:00 75 12/25/16 15:30 96.3 79 18 110/60 100 Room Air Intake and Output 12/25/16 12/26/16 19:00 07:00 Intake Total 1470 ml 1000 ml Balance 1470 ml 1000 ml Intake Oral 720 ml 400 ml IV Total 750 ml 600 ml # Voids 2 2 Laboratory Tests 12/26/16 07:55: White Blood Count 7.4, Red Blood Count 4.57, Hemoglobin 13.0, Hematocrit 40.3, Mean Corpuscular Volume 88, Mean Corpuscular Hemoglobin 28.4, Mean Corpuscular Hemoglobin Concent 32.2, Red Cell Distribution Width 19.0H, Platelet Count 192, Mean Platelet Volume 10.8H, Neutrophils (%) (Auto) 65.8, Lymphocytes (%) (Auto) 23.7, Monocytes (%) (Auto) 8.8, Eosinophils (%) (Auto) 0.2, Basophils (%) (Auto ) 1.5, Activated Partial Thromboplast Time 27, Sodium Level 137, Potassium Level 3.6, Chloride Level 97L, Carbon Dioxide Level 26, Anion Gap 14, Blood Urea Nitrogen 24H, Creatinine 1.3H, Estimat Glomerular Filtration Rate 51.8, Glucose Level 101, Plasma/Serum Osmolality [Pending], Calcium Level 9.3, Total Bilirubin 0.2, Aspartate Amino Transf (AST/SGOT) 22, Alanine Aminotransferase ( ALT/SGPT) 13, Alkaline Phosphatase 102, Total Protein 7.2, Albumin 3.7, Globulin 3.5, Albumin/Globulin Ratio 1.0, Amylase Level 130H, Lipase 43, Free Triiodothyronine [Pending], Cortisol [Pending] Height (Feet): 5 Height (Inches): 4.00 Weight (Pounds): 140 General Appearance: no apparent distress Objective other PE not changed MARTA CORADO December 26, 2016 13:43
[2016-12-26] MEDS ORDERED: D5 1/2NS 1,000 ML IV SCH (15:00)
--- NOTE | 2016-12-26 17:43 | Pulmonology Progress Note ---
Assessment/Plan Problems: (1) Vomiting (2) ARF (acute renal failure) (3) ICD (implantable cardioverter-defibrillator) in place (4) Cardiomyopathy Assessment/Plan EGD negative renal function improving echo noted, EF 35% all consults appreciated and reviewed. Subjective ROS Limited/Unobtainable: No Interval Events: no new events Allergies: Coded Allergies: ASPIRIN (Unverified Allergy, Unknown, 10/13/14) PENICILLINS (Unverified Allergy, Unknown, 10/13/14) All Systems: reviewed and negative except above Objective Last 24 Hour Vital Signs Date Time Temp Pulse Resp B/P Pulse Ox O2 Delivery O2 Flow Rate FiO2 12/26/16 16:00 81 12/26/16 16:00 97.0 74 17 137/79 96 Room Air 12/26/16 12:47 77 18 98 Room Air 21 12/26/16 12:46 79 18 98 Room Air 21 12/26/16 12:00 87 12/26/16 11:54 96.9 77 17 120/74 98 Room Air 12/26/16 09:31 97.8 86 19 121/91 98 Room Air 12/26/16 09:00 98.0 83 24 144/90 100 Nasal Cannula 3.0 12/26/16 08:51 89 18 99 12/26/16 08:49 78 28 122/88 100 Simple Mask 8.0 12/26/16 08:44 80 28 122/87 100 Simple Mask 8.0 12/26/16 08:39 97.2 85 16 140/88 100 Simple Mask 8.0 12/26/16 08:32 105/60 12/26/16 08:32 77 105/60 12/26/16 08:00 71 12/26/16 08:00 96.5 77 17 105/60 97 Room Air 12/26/16 06:05 97.4 12/26/16 04:00 75 12/26/16 04:00 97.4 86 20 101/51 99 Room Air 12/26/16 00:00 98.2 95 20 156/111 92 Room Air 12/26/16 00:00 97.7 76 21 124/70 97 Room Air 12/26/16 00:00 82 12/25/16 23:43 79 20 100 Room Air 21 12/25/16 23:41 77 20 99 Room Air 21 12/25/16 20:00 90 12/25/16 20:00 98.2 95 20 156/111 92 Room Air 12/25/16 19:30 Room Air 21 12/25/16 19:30 Room Air 21 Intake and Output 12/25/16 12/26/16 19:00 07:00 Intake Total 1470 ml 1000 ml Balance 1470 ml 1000 ml Intake Oral 720 ml 400 ml IV Total 750 ml 600 ml # Voids 2 2 Objective General Appearance: WD/WN HEENT: normocephalic Respiratory/Chest: chest wall non-tender, lungs clear Cardiovascular: normal peripheral pulses, normal rate Abdomen: normal bowel sounds, soft, non tender Genitourinary: normal external genitalia Extremities: no cyanosis, no clubbing Skin: no rash, no lesions Laboratory Tests 12/26/16 07:55: White Blood Count 7.4, Red Blood Count 4.57, Hemoglobin 13.0, Hematocrit 40.3, Mean Corpuscular Volume 88, Mean Corpuscular Hemoglobin 28.4, Mean Corpuscular Hemoglobin Concent 32.2, Red Cell Distribution Width 19.0H, Platelet Count 192, Mean Platelet Volume 10.8H, Neutrophils (%) (Auto) 65.8, Lymphocytes (%) (Auto) 23.7, Monocytes (%) (Auto) 8.8, Eosinophils (%) (Auto) 0.2, Basophils (%) (Auto ) 1.5, Activated Partial Thromboplast Time 27, Sodium Level 137, Potassium Level 3.6, Chloride Level 97L, Carbon Dioxide Level 26, Anion Gap 14, Blood Urea Nitrogen 24H, Creatinine 1.3H, Estimat Glomerular Filtration Rate 51.8, Glucose Level 101, Plasma/Serum Osmolality [Pending], Calcium Level 9.3, Total Bilirubin 0.2, Aspartate Amino Transf (AST/SGOT) 22, Alanine Aminotransferase ( ALT/SGPT) 13, Alkaline Phosphatase 102, Total Protein 7.2, Albumin 3.7, Globulin 3.5, Albumin/Globulin Ratio 1.0, Amylase Level 130H, Lipase 43, Free Triiodothyronine [Pending], Cortisol [Pending] Current Medications Medications (Trade) Dose Ordered Sig/Dino Route PRN Reason Start Time Stop Time Status Last Admin Dose Admin Acetaminophen (Tylenol) 650 mg Q4H PRN ORAL fever>100.5 12/25/16 08:00 01/24/17 07:59 Acetaminophen/ Hydrocodone Bitart ([place] 5/325) 1 tab Q4H PRN ORAL Moderate Pain (Pain Scale 4-6) 12/25/16 08:00 01/01/17 07:59 Albuterol Sulfate 2 puff 2 puff Q6HRT INH 12/26/16 13:00 01/24/17 11:59 12/26/16 12:45 Amlodipine Besylate (Norvasc) 5 mg DAILY ORAL 12/26/16 09:00 01/25/17 08:59 Atorvastatin Calcium (Lipitor) 10 mg BEDTIME ORAL 12/25/16 21:00 01/24/17 20:59 12/25/16 20:37 Dextrose (Dextrose 50%) STAT PRN IV Hypoglycemia 12/25/16 08:00 01/24/17 07:59 Dextrose/Sodium Chloride (D5 0.45% NS) 1,000 ml @ 50 mls/hr Q20H IV 12/26/16 15:00 01/25/17 14:59 12/26/16 15:00 Heparin Sodium (Porcine) (Heparin 5000 units/ml) 5,000 units EVERY 12 HOURS SUBQ 12/25/16 09:00 01/24/17 08:59 12/25/16 20:45 Lisinopril (Prinivil) 20 mg DAILY ORAL 12/26/16 09:00 01/25/17 08:59 Lorazepam (Ativan 2mg/ml 1ml) 1 mg Q4H PRN IV agitation 12/25/16 08:00 01/01/17 07:59 Metoclopramide HCl (Reglan) 5 mg Q6H PRN IVP Severe nausea 12/25/16 08:00 01/24/17 07:59 Morphine Sulfate (Morphine Sulfate) 2 mg Q4H PRN IVP severe Pain (Pain Scale 7-10) 12/25/16 08:00 01/01/17 07:59 12/26/16 09:49 Nitroglycerin (Ntg) 0.4 mg Q5M X 3 DOSES PRN SL Prn Chest Pain 12/25/16 08:00 01/24/17 07:59 Ondansetron HCl (Zofran) 4 mg Q6H PRN IVP Nausea & Vomiting 12/25/16 08:00 01/24/17 07:59 12/26/16 11:38 Pantoprazole (Protonix) 40 mg EVERY 12 HOURS ORAL 12/26/16 21:00 01/25/17 20:59 Polyethylene Glycol (Miralax) 17 gm HSPRN PRN ORAL Constipation 12/25/16 21:00 01/24/17 20:59 Prednisone (predniSONE) 30 mg DAILY ORAL 12/27/16 09:00 01/26/17 08:59 Promethazine HCl (Phenergan) 25 mg EVERY 8 HOURS PRN IV refractory nausea 12/25/16 08:00 01/24/17 07:59 Temazepam (Restoril) 15 mg HSPRN PRN ORAL Insomnia 12/25/16 21:00 01/01/17 20:59 12/25/16 22:01 BRENDA GRANGER December 26, 2016 17:43
[2016-12-26] MEDS: Morphine Sulfate 2mg/ml Inj SUBQ PRN ×2 (18:36→23:29)
--- NOTE | 2016-12-26 20:23 | Cardiology Progress Note ---
Assessment/Plan Assessment/Plan fall non sycopal htn med noncompliance renal insuf ? chronicity hs of icd implantation chf cardiomyopathy hyperlipidemia obesity asthma dig check level ok off lasix and acie echo noted ef 35% bp is elelvvated cr is better resume acei if ok with nephrolgy for chf / cardiomyopathy Subjective Cardiovascular: Denies: chest pain, lightheadedness Respiratory: Reports: shortness of breath Gastrointestinal/Abdominal: Reports: constipated, Denies: abdominal pain Genitourinary: Denies: burning Objective Last 24 Hour Vital Signs Date Time Temp Pulse Resp B/P Pulse Ox O2 Delivery O2 Flow Rate FiO2 12/26/16 20:00 97.4 69 19 141/92 99 Room Air 12/26/16 19:20 78 18 98 Room Air 12/26/16 19:20 78 18 98 Room Air 21 12/26/16 16:00 81 12/26/16 16:00 97.0 74 17 137/79 96 Room Air 12/26/16 12:47 77 18 98 Room Air 12/26/16 12:46 79 18 98 Room Air 12/26/16 12:00 87 12/26/16 11:54 96.9 77 17 120/74 98 Room Air 12/26/16 09:31 97.8 86 19 121/91 98 Room Air 12/26/16 09:00 98.0 83 24 144/90 100 Nasal Cannula 3.0 12/26/16 08:51 89 18 99 12/26/16 08:49 78 28 122/88 100 Simple Mask 8.0 12/26/16 08:44 80 28 122/87 100 Simple Mask 8.0 12/26/16 08:39 97.2 85 16 140/88 100 Simple Mask 8.0 12/26/16 08:32 105/60 12/26/16 08:32 77 105/60 12/26/16 08:00 71 12/26/16 08:00 96.5 77 17 105/60 97 Room Air 12/26/16 06:05 97.4 12/26/16 04:00 75 12/26/16 04:00 97.4 86 20 101/51 99 Room Air 12/26/16 00:00 98.2 95 20 156/111 92 Room Air 12/26/16 00:00 97.7 76 21 124/70 97 Room Air 12/26/16 00:00 82 12/25/16 23:43 79 20 100 Room Air 21 12/25/16 23:41 77 20 99 Room Air 21 General Appearance: no apparent distress, alert Intake and Output 12/25/16 12/26/16 19:00 07:00 Intake Total 1470 ml 1000 ml Balance 1470 ml 1000 ml Intake Oral 720 ml 400 ml IV Total 750 ml 600 ml # Voids 2 2 Laboratory Tests Test 12/26/16 07:55 White Blood Count 7.4 K/UL (4.8-10.8) Red Blood Count 4.57 M/UL (4.20-5.40) Hemoglobin 13.0 G/DL (12.0-16.0) Hematocrit 40.3 % (37.0-47.0) Mean Corpuscular Volume 88 FL (80-99) Mean Corpuscular Hemoglobin 28.4 PG (27.0-31.0) Mean Corpuscular Hemoglobin Concent 32.2 G/DL (32.0-36.0) Red Cell Distribution Width 19.0 % (11.6-14.8) H Platelet Count 192 K/UL (150-450) Mean Platelet Volume 10.8 FL (6.5-10.1) H Neutrophils (%) (Auto) 65.8 % (45.0-75.0) Lymphocytes (%) (Auto) 23.7 % (20.0-45.0) Monocytes (%) (Auto) 8.8 % (1.0-10.0) Eosinophils (%) (Auto) 0.2 % (0.0-3.0) Basophils (%) (Auto) 1.5 % (0.0-2.0) Activated Partial Thromboplast Time 27 SEC (23-33) Sodium Level 137 mEQ/L (135-145) Potassium Level 3.6 mEQ/L (3.4-4.9) Chloride Level 97 mEQ/L (98-107) L Carbon Dioxide Level 26 mEQ/L (20-30) Anion Gap 14 (5-15) Blood Urea Nitrogen 24 mg/dL (7-23) H Creatinine 1.3 mg/dL (0.5-0.9) H Estimat Glomerular Filtration Rate 51.8 mL/min (>60) Glucose Level 101 mg/dL (74-106) Plasma/Serum Osmolality Pending Calcium Level 9.3 mg/dL (8.6-10.2) Total Bilirubin 0.2 mg/dL (0.0-1.2) Aspartate Amino Transf (AST/SGOT) 22 U/L (5-40) Alanine Aminotransferase (ALT/SGPT) 13 U/L (3-33) Alkaline Phosphatase 102 U/L (35-104) Total Protein 7.2 g/dL (6.6-8.7) Albumin 3.7 g/dL (3.5-5.2) Globulin 3.5 g/dL Albumin/Globulin Ratio 1.0 (1.0-2.7) Amylase Level 130 U/L (10-110) H Lipase 43 U/L (< 60) Free Triiodothyronine Pending Cortisol Pending JAQUELINE BARRAZA December 26, 2016 20:23
[2016-12-26] MEDS ORDERED: Lisinopril 20mg tab ORAL ONE (20:30)
[2016-12-27] VITALS: BP 149/97
[2016-12-27] MEDS: Albuterol 90mcg Inhaler 8gm INH SCH ×3 (01:32→13:33)
[2016-12-27 04:00] VITALS: BP 154/97
[2016-12-27] MEDS: Morphine Sulfate 2mg/ml Inj SUBQ PRN ×2 (04:03→08:30)
[2016-12-27 04:15] VITALS: BP 145/90
[2016-12-27] MEDS ORDERED: Lisinopril 20mg tab ORAL SCH (06:30)
[2016-12-27 08:00] VITALS: BP 143/89
[2016-12-27 08:10] LABS: CORTISOL LC 1.4 ug/dL (.); FREE TRIIODOTHYRONINE 2.1 pg/mL (2.0-4.4)
[2016-12-27] MEDS: Heparin 5000 units/ml inj SUBQ SCH (08:29)
[2016-12-27] MEDS ORDERED: PredniSONE 20mg tab ORAL SCH (09:00)
[2016-12-27 09:51] LABS: BASOPHILS % (AUTO) 1.2 % (0.0-2.0); EOSINOPHILS % (AUTO) 0.2 % (0.0-3.0); LYMPHOCYTES % (AUTO) 20.9 % (20.0-45.0); MEAN CORPUSCULAR HEMOGLOBIN 27.6 PG (27.0-31.0); MEAN CORPUSCULAR HGB CONC 31.2 G/DL (32.0-36.0); MEAN CORPUSCULAR VOLUME 88 FL (80-99); MEAN PLATELET VOLUME 11.7 FL (6.5-10.1); MONOCYTES % (AUTO) 8.6 % (1.0-10.0); NEUTROPHILS % (AUTO) 69.2 % (45.0-75.0); PLATELET COUNT 132 K/UL (150-450); RED BLOOD COUNT 4.77 M/UL (4.20-5.40); RED CELL DISTRIBUTION WIDTH 19.3 % (11.6-14.8); WHITE BLOOD COUNT 10.6 K/UL (4.8-10.8)
[2016-12-27 10:24] LABS: CALCIUM 9.5 mg/dL (8.6-10.2); CREATININE 1.2 mg/dL (0.5-0.9); GLOMERULAR FILTRATION RATE 56.7 mL/min (>60); POTASSIUM 3.9 mEQ/L (3.4-4.9)
--- NOTE | 2016-12-27 10:53 | GI Progress Note ---
Assessment/Plan Problems: (1) Drug abuse ICD Codes: F19.10 - Other psychoactive substance abuse, uncomplicated SNOMED: 65923961 (2) ICD (implantable cardioverter-defibrillator) in place ICD Codes: Z95.810 - Presence of automatic (implantable) cardiac defibrillator SNOMED: 304531854, 950711841 (3) Vomiting ICD Codes: R11.10 - Vomiting, unspecified SNOMED: 312447270 (4) Nausea ICD Codes: R11.0 - Nausea SNOMED: 371443984 (5) Electrolyte imbalance ICD Codes: E87.8 - Other disorders of electrolyte and fluid balance, not elsewhere classified SNOMED: 868304963, 514899907 Status: stable Status Narrative Discussed with Dr. Whitmore. Assessment/Plan FINDINGS: 1. Gastritis, status post biopsy. 2. Duodenitis, status biopsy. utox positive for both MJ and cocaine abdominal U/S >> unremarkable okay for DC per GI standpoint fu biopsies zofran prn electrolyte replacement ppi fu labs recommend initial outpatient colonoscopy screening Subjective Gastrointestinal/Abdominal: Reports: abdominal pain - improved Objective Last 24 Hour Vital Signs Date Time Temp Pulse Resp B/P Pulse Ox O2 Delivery O2 Flow Rate FiO2 12/27/16 08:27 82 143/89 12/27/16 08:00 97.0 82 18 143/89 100 Room Air 12/27/16 04:15 90 145/90 12/27/16 04:00 92 12/27/16 04:00 97.7 92 21 154/97 99 Room Air 12/27/16 01:33 77 18 99 Room Air 12/27/16 01:32 72 18 99 Room Air 12/27/16 00:00 97.5 81 20 149/97 97 Room Air 12/27/16 00:00 91 12/26/16 20:00 97.4 69 19 141/92 99 Room Air 12/26/16 20:00 83 12/26/16 19:20 78 18 98 Room Air 21 12/26/16 19:20 78 18 98 Room Air 21 12/26/16 16:00 81 12/26/16 16:00 97.0 74 17 137/79 96 Room Air 12/26/16 12:47 77 18 98 Room Air 21 12/26/16 12:46 79 18 98 Room Air 21 12/26/16 12:00 87 12/26/16 11:54 96.9 77 17 120/74 98 Room Air Intake and Output 12/26/16 12/27/16 19:00 07:00 Intake Total 1415 ml 400 ml Balance 1415 ml 400 ml Intake Oral 690 ml 400 ml IV Total 725 ml # Voids 3 4 # Bowel Movements 1 Laboratory Tests Test 12/27/16 09:10 White Blood Count 10.6 K/UL (4.8-10.8) Red Blood Count 4.77 M/UL (4.20-5.40) Hemoglobin 13.2 G/DL (12.0-16.0) Hematocrit 42.2 % (37.0-47.0) Mean Corpuscular Volume 88 FL (80-99) Mean Corpuscular Hemoglobin 27.6 PG (27.0-31.0) Mean Corpuscular Hemoglobin Concent 31.2 G/DL (32.0-36.0) L Red Cell Distribution Width 19.3 % (11.6-14.8) H Platelet Count 132 K/UL (150-450) L Mean Platelet Volume 11.7 FL (6.5-10.1) H Neutrophils (%) (Auto) 69.2 % (45.0-75.0) Lymphocytes (%) (Auto) 20.9 % (20.0-45.0) Monocytes (%) (Auto) 8.6 % (1.0-10.0) Eosinophils (%) (Auto) 0.2 % (0.0-3.0) Basophils (%) (Auto) 1.2 % (0.0-2.0) Sodium Level 140 mEQ/L (135-145) Potassium Level 3.9 mEQ/L (3.4-4.9) Chloride Level 100 mEQ/L (98-107) Carbon Dioxide Level 26 mEQ/L (20-30) Anion Gap 14 (5-15) Blood Urea Nitrogen 21 mg/dL (7-23) Creatinine 1.2 mg/dL (0.5-0.9) H Estimat Glomerular Filtration Rate 56.7 mL/min (>60) Glucose Level 85 mg/dL (74-106) Calcium Level 9.5 mg/dL (8.6-10.2) Height (Feet): 5 Height (Inches): 4.00 Weight (Pounds): 140 General Appearance: no apparent distress, alert Cardiovascular: normal rate Respiratory/Chest: normal breath sounds, no respiratory distress Abdominal Exam: normal bowel sounds, non tender, soft Extremities: normal range of motion Susan Ball N.P. December 27, 2016 10:53
--- NOTE | 2016-12-27 11:32 | General Progress Note ---
Assessment/Plan Status: stable Assessment/Plan status; (1) Vomiting palpitation and dizziness are the initial presentation: Findings: (2) ARF (acute renal failure), High K : due to Lasix and Willie inhibitors (3) ICD (implantable cardioverter-defibrillator) in place (4) Cardiomyopathy and low Ej Fx 45% Plan: improved Optimize cardiac and pulmonary status; taper steroids. per orders Subjective ROS Limited/Unobtainable: No Allergies: Coded Allergies: ASPIRIN (Unverified Allergy, Unknown, 10/13/14) PENICILLINS (Unverified Allergy, Unknown, 10/13/14) Objective Last 24 Hour Vital Signs Date Time Temp Pulse Resp B/P Pulse Ox O2 Delivery O2 Flow Rate FiO2 12/27/16 08:27 82 143/89 12/27/16 08:00 97.0 82 18 143/89 100 Room Air 12/27/16 04:15 90 145/90 12/27/16 04:00 92 12/27/16 04:00 97.7 92 21 154/97 99 Room Air 12/27/16 01:33 77 18 99 Room Air 21 12/27/16 01:32 72 18 99 Room Air 21 12/27/16 00:00 97.5 81 20 149/97 97 Room Air 12/27/16 00:00 91 12/26/16 20:00 97.4 69 19 141/92 99 Room Air 12/26/16 20:00 83 12/26/16 19:20 78 18 98 Room Air 21 12/26/16 19:20 78 18 98 Room Air 21 12/26/16 16:00 81 12/26/16 16:00 97.0 74 17 137/79 96 Room Air 12/26/16 12:47 77 18 98 Room Air 21 12/26/16 12:46 79 18 98 Room Air 21 12/26/16 12:00 87 12/26/16 11:54 96.9 77 17 120/74 98 Room Air Intake and Output 12/26/16 12/27/16 19:00 07:00 Intake Total 1415 ml 400 ml Balance 1415 ml 400 ml Intake Oral 690 ml 400 ml IV Total 725 ml # Voids 3 4 # Bowel Movements 1 Laboratory Tests 12/27/16 09:10: White Blood Count 10.6, Red Blood Count 4.77, Hemoglobin 13.2, Hematocrit 42.2, Mean Corpuscular Volume 88, Mean Corpuscular Hemoglobin 27.6, Mean Corpuscular Hemoglobin Concent 31.2L, Red Cell Distribution Width 19.3H, Platelet Count 132L , Mean Platelet Volume 11.7H, Neutrophils (%) (Auto) 69.2, Lymphocytes (%) (Auto ) 20.9, Monocytes (%) (Auto) 8.6, Eosinophils (%) (Auto) 0.2, Basophils (%) ( Auto) 1.2, Sodium Level 140, Potassium Level 3.9, Chloride Level 100, Carbon Dioxide Level 26, Anion Gap 14, Blood Urea Nitrogen 21, Creatinine 1.2H, Estimat Glomerular Filtration Rate 56.7, Glucose Level 85, Calcium Level 9.5 Height (Feet): 5 Height (Inches): 4.00 Weight (Pounds): 140 General Appearance: no apparent distress Objective other PE not changed MARTA CORADO December 27, 2016 11:31
[2016-12-27 12:00] VITALS: BP 138/84
--- NOTE | 2016-12-27 13:28 | Pulmonology Progress Note ---
Assessment/Plan Problems: (1) Vomiting (2) ARF (acute renal failure) (3) ICD (implantable cardioverter-defibrillator) in place (4) Cardiomyopathy Assessment/Plan EGD negative renal function improving echo noted, EF 35% all consults appreciated and reviewed. dc home today Subjective ROS Limited/Unobtainable: No Constitutional: Reports: no symptoms HEENT: Repors: no symptoms Respiratory: Reports: no symptoms Cardiovascular: Reports: no symptoms Gastrointestinal/Abdominal: Reports: no symptoms Allergies: Coded Allergies: ASPIRIN (Unverified Allergy, Unknown, 10/13/14) PENICILLINS (Unverified Allergy, Unknown, 10/13/14) Objective Last 24 Hour Vital Signs Date Time Temp Pulse Resp B/P Pulse Ox O2 Delivery O2 Flow Rate FiO2 12/27/16 12:00 98 12/27/16 12:00 97.0 79 18 138/84 99 Room Air 12/27/16 08:27 82 143/89 12/27/16 08:10 87 18 100 Room Air 3.0 21 12/27/16 08:10 87 18 100 Room Air 12/27/16 08:00 87 12/27/16 08:00 97.0 82 18 143/89 100 Room Air 12/27/16 04:15 90 145/90 12/27/16 04:00 92 12/27/16 04:00 97.7 92 21 154/97 99 Room Air 12/27/16 01:33 77 18 99 Room Air 21 12/27/16 01:32 72 18 99 Room Air 21 12/27/16 00:00 97.5 81 20 149/97 97 Room Air 12/27/16 00:00 91 12/26/16 20:00 97.4 69 19 141/92 99 Room Air 12/26/16 20:00 83 12/26/16 19:20 78 18 98 Room Air 21 12/26/16 19:20 78 18 98 Room Air 21 12/26/16 16:00 81 12/26/16 16:00 97.0 74 17 137/79 96 Room Air Intake and Output 12/26/16 12/27/16 19:00 07:00 Intake Total 1415 ml 400 ml Balance 1415 ml 400 ml Intake Oral 690 ml 400 ml IV Total 725 ml # Voids 3 4 # Bowel Movements 1 Objective General Appearance: WD/WN HEENT: normocephalic Respiratory/Chest: chest wall non-tender, lungs clear Cardiovascular: normal peripheral pulses, normal rate Abdomen: normal bowel sounds, soft, non tender Genitourinary: normal external genitalia Extremities: no cyanosis, no clubbing Skin: no rash, no lesions Laboratory Tests 12/27/16 09:10: White Blood Count 10.6, Red Blood Count 4.77, Hemoglobin 13.2, Hematocrit 42.2, Mean Corpuscular Volume 88, Mean Corpuscular Hemoglobin 27.6, Mean Corpuscular Hemoglobin Concent 31.2L, Red Cell Distribution Width 19.3H, Platelet Count 132L , Mean Platelet Volume 11.7H, Neutrophils (%) (Auto) 69.2, Lymphocytes (%) (Auto ) 20.9, Monocytes (%) (Auto) 8.6, Eosinophils (%) (Auto) 0.2, Basophils (%) ( Auto) 1.2, Sodium Level 140, Potassium Level 3.9, Chloride Level 100, Carbon Dioxide Level 26, Anion Gap 14, Blood Urea Nitrogen 21, Creatinine 1.2H, Estimat Glomerular Filtration Rate 56.7, Glucose Level 85, Calcium Level 9.5 Current Medications Medications (Trade) Dose Ordered Sig/Dino Route PRN Reason Start Time Stop Time Status Last Admin Dose Admin Acetaminophen (Tylenol) 650 mg Q4H PRN ORAL fever>100.5 12/25/16 08:00 01/24/17 07:59 Acetaminophen/ Hydrocodone Bitart ([place] 5/325) 1 tab Q4H PRN ORAL Moderate Pain (Pain Scale 4-6) 12/25/16 08:00 01/01/17 07:59 Albuterol Sulfate (Proventil MDI) 2 puff Q6HRT INH 12/26/16 13:00 01/24/17 11:59 12/27/16 08:10 Amlodipine Besylate (Norvasc) 5 mg DAILY ORAL 12/26/16 09:00 01/25/17 08:59 12/27/16 08:27 Atorvastatin Calcium (Lipitor) 10 mg BEDTIME ORAL 12/25/16 21:00 01/24/17 20:59 12/26/16 20:44 Dextrose (Dextrose 50%) STAT PRN IV Hypoglycemia 12/25/16 08:00 01/24/17 07:59 Heparin Sodium (Porcine) (Heparin 5000 units/ml) 5,000 units EVERY 12 HOURS SUBQ 12/25/16 09:00 01/24/17 08:59 12/27/16 08:29 Lorazepam (Ativan 2mg/ml 1ml) 1 mg Q4H PRN IV agitation 12/25/16 08:00 01/01/17 07:59 Morphine Sulfate (Morphine Sulfate) 2 mg Q4H PRN SUBQ Severe Pain (Pain Scale 7-10) 12/26/16 18:00 01/02/17 17:59 12/27/16 08:30 Nitroglycerin (Ntg) 0.4 mg Q5M X 3 DOSES PRN SL Prn Chest Pain 12/25/16 08:00 01/24/17 07:59 Ondansetron HCl (Zofran) 4 mg Q6H PRN ORAL Nausea & Vomiting 12/26/16 18:00 01/25/17 17:59 12/27/16 08:30 Pantoprazole (Protonix) 40 mg EVERY 12 HOURS ORAL 12/26/16 21:00 01/25/17 20:59 12/27/16 08:26 Polyethylene Glycol (Miralax) 17 gm HSPRN PRN ORAL Constipation 12/25/16 21:00 01/24/17 20:59 Prednisone (predniSONE) 30 mg DAILY ORAL 12/27/16 09:00 01/26/17 08:59 12/27/16 08:28 Promethazine HCl (Phenergan) 25 mg EVERY 8 HOURS PRN IV refractory nausea 12/25/16 08:00 01/24/17 07:59 Temazepam (Restoril) 15 mg HSPRN PRN ORAL Insomnia 12/25/16 21:00 01/01/17 20:59 12/25/16 22:01 BRENDA GRANGER December 27, 2016 13:28
[2016-12-27] MEDS ORDERED: D5 1/2NS 1000ml IV ONE (15:31)
[2016-12-27 20:48] VITALS: BP 138/84
--- NOTE | 2016-12-27 20:48 | 48 Hour Post Anesthesia Eval ---
Post Anesthesia Evaluation Procedure: egd Date of Evaluation: December 27, 2016 Time of Evaluation: 12:00 Blood Pressure Systolic: 138 0: 84 Pulse Rate: 90 Respiratory Rate: 18 Temperature (Fahrenheit): 97.0 O2 Sat by Pulse Oximetry: 99 Airway: patent Nausea: No Vomiting: No Pain Intensity: 0 Hydration Status: adequate Mental Status/LOC: patient returned to baseline Post-Anesthesia Complications: none Follow-up care needed: N/A AROLDO BIRCH December 27, 2016 20:48
--- NOTE | 2016-12-28 16:32 | Discharge Summary ---
Discharge Summary Hospital Course Date of Admission December 25, 2016 at 04:45 Date of Discharge December 27, 2016 at 15:32 Admitting Diagnosis hyperkalemia, acute renal failure, sob HPI Mare Gordon is a 55 year old female who was admitted on December 25, 2016 at 04 :45 for Hyperkalemia/Acute Renal Failure/Shortness Of Hospital Course [id number] Discharge Discharge Disposition Patient was discharged to Home (01) Discharge Diagnoses: Mi Cooney NP December 28, 2016 16:32
--- NOTE | 2016-12-29 13:01 | Discharge Summary 2 SIG ---
DATE OF ADMISSION: 12/25/2016 DATE OF DISCHARGE: 12/27/2016 CONSULTANTS: 1. Danrde Najera M.D. 2. Ralhp Parada M.D. 3. Stephen Whitmore M.D. 4. Natividad Rojas M.D.. BRIEF HOSPITAL COURSE: The patient is a 55-year-old female with history of ICD and cardiomyopathy, who presented to ED for evaluation of feeling dizzy with vomiting x1 and palpitations. On arrival to ED, laboratories showed no leukocytosis. Creatinine was 1.7. EKG showed left bundle branch block with no ischemic changes. Chest x-ray done showed pacemaker. Potassium was 5.2. The patient was admitted for further inpatient care and underwent cardiac evaluation by Dr. Parada. EKG was consistent with left bundle-branch conduction defect in comparison with an old EKG in 2013 appeared relatively unchanged. Echocardiogram done showed ejection fraction of 35% to 40% with apical hypokinesis and mild pulmonary hypertension. Dr. Najera was consulted for acute renal failure and high potassium level, which was assessed to be secondary to Lasix and REJI inhibitors. She was given slow IV hydration. The patient underwent upper endoscopy on 12/26/2016 with findings of gastritis and duodenitis. Steroids were eventually tapered. Renal function improved and the patient was discharged home. Advised to follow up as outpatient. FINAL DIAGNOSES: 1. Acute renal failure. 2. Cardiomyopathy. 3. Implantable cardioverter-defibrillator in place. 4. Nausea and vomiting. 5. Polysubstance abuse. 6. Hypertension. 7. Medication noncompliance. 8. Fall, nonsyncopal. 9. Hyperlipidemia. 10. Obesity. 11. Asthma. Mellisa Ko M.D. I have been assigned to dictate discharge summary on this account and I was not involved in the patient's management. Lacy HopsonP. DR: Kassi JOB#: [id number] CC:
== END 2016-12-27 15:32 | disposition home or self-care (01) | DRG 241 ==
LOC: EDBD 23:49 → EDUNIT# 23:49 → EMR 12-25 00:12 → 2E 12-25 04:45 → EDBEDREQ 12-25 05:06
PROC: 0DB98ZX Excision of Duodenum, Via Natural or Artificial Opening Endoscopic, Diagnostic (ICD-10-PCS; 2016-12-26)
PROC: 0DB68ZX Excision of Stomach, Via Natural or Artificial Opening Endoscopic, Diagnostic (ICD-10-PCS; principal; 2016-12-26 08:20)
DX: K29.70 Gastritis, unspecified, without bleeding (principal); N17.9 Acute kidney failure, unspecified; I42.9 Cardiomyopathy, unspecified; I50.9 Heart failure, unspecified; E87.5 Hyperkalemia; Z95.0 Presence of cardiac pacemaker; I44.7 Left bundle-branch block, unspecified; I10 Essential (primary) hypertension; E78.5 Hyperlipidemia, unspecified; E66.9 Obesity, unspecified; Z68.26 Body mass index [BMI] 26.0-26.9, adult; J45.909 Unspecified asthma, uncomplicated; Z87.891 Personal history of nicotine dependence; K29.80 Duodenitis without bleeding; Z91.14 Patient's other noncompliance with medication regimen; Z91.81 History of falling; F19.10 Other psychoactive substance abuse, uncomplicated; R11.2 Nausea with vomiting, unspecified
CPT/HCPCS: 36415; 71010; 76700; 80048; 80053; 80162; 80300; 81001; 81003; 82150; 82436; 82533; 82550; 82553; 83690; 83735; 83930; 83935; 84100; 84133; 84300; 84439; 84443; 84481; 84484; 84550; 85025; 85730; 89050; 93005; 93306; 94003; 94150; 94640; J2405

== ENCOUNTER 2017-06-05 11:32 | Inpatient (IN) | payer OTHER ==
[~2017-06-05] VITALS: Ht 160 cm; Wt 79.4 kg
[~2017-06-05 11:32] MED LIST changes: +AMLODIPINE BESYL5 MG ORAL; +ATORVASTATIN CA20 MG ORAL; +BENAZEPRIL HCL20 MG ORAL; +DIGOXIN125 MCG ORAL; +FUROSEMIDE40 MG ORAL; +OMEPRAZOLE20 M3 ORAL; +POTASSIUM CHLOR8 ME3 PO; +VENTOLIN HFA18 GM INH
[2017-06-05 12:10] VITALS: BP 142/69
--- NOTE | 2017-06-05 12:50 | Diagnostic Imaging Report ---
Indications: Altered mental status Technique: Spiral acquisitions obtained through the brain. Angled axial and coronal 5 x 5 mm slices were reconstructed. Total dose length product 1333 mGycm. CTDI vol(s) 70 mGy. Dose reduction achieved using automated exposure control Comparison: None Findings: No acute hemorrhage or edema. No mass effect or midline shift. Normal size ventricles. Mild prominence to the extra-axial CSF spaces. There is periventricular deep white matter low-attenuation. Otherwise normal jones-white differentiation. Old lacunar infarct is seen in the right external capsule region. There is minimal ethmoid sinus disease on the right.. There is inward displacement of the medial wall of the right orbit. Impression: Negative for acute intracranial bleed or mass effect Mild prominence of the extra-axial CSF spaces, likely age-related but striking for age. Old right basal ganglia region lacunar infarct Bilateral periventricular deep white matter low attenuation, likely on the basis of chronic ischemic change The CT scanner at [facility] is accredited by the [employer] and the scans are performed using protocols designed to limit radiation exposure to as low as reasonably achievable to attain images of sufficient resolution adequate for diagnostic evaluation.
--- NOTE | 2017-06-05 12:55 | Emergency Room Report ---
History of Present Illness General Chief Complaint: Altered Mental Status Source: Patient, Medical Record, EMS Present Illness HPI 56-year-old female history of chronic renal failure, cardiomyopathy, ICD, COPD, presenting to. Rehabilitation center for episode of slurred speech and erratic behavior. Patient denies any neurological complaints at this time, but states that she had chest pain that started this morning. Left-sided, radiating to left arm, with shortness of breath. Also states that she has had palpitations. Denies any fever chills nausea vomiting or cough. EMS states that they were told that she had slurred speech but upon arrival patient was ANO x4 and speaking fine. Allergies: Coded Allergies: ASPIRIN (Unverified Allergy, Unknown, 10/13/14) PENICILLINS (Unverified Allergy, Unknown, 10/13/14) Patient History Past Medical History: see triage record Past Surgical History: none Pertinent Family History: none Last Menstrual Period: na Reviewed Nursing Documentation: PMH: Agreed, PSxH: Agreed Nursing Documentation-PMH Past Medical History: No History, Except For Hx Cardiac Problems: Yes - afib Hx Hypertension: Yes Hx Pacemaker: Yes Hx Asthma: Yes Hx COPD: Yes Hx Cancer: No Hx Gastrointestinal Problems: Yes - gerd History Of Psychiatric Problem: Yes - anxiety Hx Neurological Problems: No Review of Systems All Other Systems: negative except mentioned in HPI Physical Exam Vital Signs Date Time Temp Pulse Resp B/P (MAP) Pulse Ox O2 Delivery O2 Flow Rate FiO2 06/05/17 11:42 98.6 59 18 113/71 98 Room Air Sp02 EP Interpretation: reviewed, normal General Appearance: alert, GCS 15, non-toxic, mild distress Head: normocephalic, atraumatic Eyes: bilateral eye normal inspection, bilateral eye PERRL, bilateral eye EOMI ENT: normal ENT inspection, normal pharynx, normal voice, moist mucus membranes Neck: normal inspection, full range of motion, supple Respiratory: normal inspection, lungs clear, normal breath sounds, no respiratory distress, no retraction, no wheezing, speaking full sentences, chest symmetrical Cardiovascular #1: normal inspection, regular rate, rhythm, no edema, normal capillary refill Cardiovascular #2: 2+ radial (R), 2+ radial (L) Gastrointestinal: normal inspection, non tender, soft, non-distended, no guarding Musculoskeletal: normal inspection, back normal, normal range of motion, non- tender Neurologic: normal inspection, alert, oriented x3, responsive, bomb loader III-XII nml as tested, motor strength/tone normal, sensory intact, speech normal Psychiatric: normal inspection, judgement/insight normal, memory normal Skin: normal inspection, normal color, no rash, warm/dry, well hydrated, normal turgor Medical Decision Making Diagnostic Impression: Primary Impression: Acute coronary syndrome Additional Impression: Slurring of speech ER Course 56-year-old female p/w CP Also was told that should episode of slurred speech DDX: ACS vs. CHF vs. pneumonia vs. gastritis/GERD vs. pneumothorax Slurred speech: ? Possible TIA, CVA, at this time patient has no slurring of speech and no neurological signs or symptoms Plan: IV access, obtain labs including troponin, EKG, CXR CT HEAD Patient allergic to aspirin ER course: Patient has remained on a monitor, HD stable, chest pain improved. No neurological signs or symptoms during ED stay has remained aox4 Disposition: Patient requires admission for chest pain, and possible TIA Due to patient's history and comorbidities, patient has increased risk of acute cardiac event. Patient requires admission for further workup, serial troponin, and possible stress test/cath inpatient. D/W hospitalist Dr Ko who has accepted patient for admission Please note that this Emergency Department Report was dictated using [employer] technology software, occasionally this can lead to erroneous entry secondary to interpretation by the dictation equipment. EKG Diagnostic Results EP Interpretation: Yes Rate: normal Rhythm: NSR ST Segments: Left bundle-branch block ASA given to patient: No Rhythm Strip EP Interpretation: Yes Rate: 70 Rhythm: NSR, no PVCs, no ectopy Chest X-ray CXR: Ordered: Yes 1 view Indication: Chest pain EP interpretation: Yes Interpretation: Cardiomegaly, pulmonary masses congestion, ICD noted left chest Impression: Cardiomegaly and CHF Electronically signed by Clinton Ferguson MD Laboratory Tests Test 06/05/17 14:58 06/05/17 17:30 White Blood Count 8.1 K/UL (4.8-10.8) Red Blood Count 4.27 M/UL (4.20-5.40) Hemoglobin 11.4 G/DL (12.0-16.0) L Hematocrit 36.8 % (37.0-47.0) L Mean Corpuscular Volume 86 FL (80-99) Mean Corpuscular Hemoglobin 26.8 PG (27.0-31.0) L Mean Corpuscular Hemoglobin Concent 31.0 G/DL (32.0-36.0) L Red Cell Distribution Width 17.5 % (11.6-14.8) H Platelet Count 262 K/UL (150-450) Mean Platelet Volume 8.1 FL (6.5-10.1) Neutrophils (%) (Auto) 64.5 % (45.0-75.0) Lymphocytes (%) (Auto) 19.3 % (20.0-45.0) L Monocytes (%) (Auto) 12.3 % (1.0-10.0) H Eosinophils (%) (Auto) 3.1 % (0.0-3.0) H Basophils (%) (Auto) 0.7 % (0.0-2.0) Sodium Level 140 MMOL/L (136-145) Potassium Level 3.9 MMOL/L (3.5-5.1) Chloride Level 105 MMOL/L (98-107) Carbon Dioxide Level 27 MMOL/L (21-32) Anion Gap 8 mmol/L (5-15) Blood Urea Nitrogen 26 mg/dL (7-18) H Creatinine 1.4 MG/DL (0.55-1.30) H Estimate Glomerular Filtration Rate 47.3 mL/min (>60) Glucose Level 83 MG/DL (74-106) Calcium Level 9.8 MG/DL (8.5-10.1) Total Bilirubin 0.2 MG/DL (0.2-1.0) Aspartate Amino Transferase (AST) 25 U/L (15-37) Alanine Aminotransferase (ALT) 33 U/L (12-78) Alkaline Phosphatase 166 U/L (46-116) H Total Creatine Kinase 51 U/L (26-308) Creatine Kinase MB 3.6 NG/ML (0.0-3.6) Creatine Kinase MB Relative Index 7.0 Troponin I 0.064 ng/mL (0.000-0.056) 0.067 ng/mL (0.000-0.056) Total Protein 7.2 G/DL (6.4-8.2) Albumin 3.5 G/DL (3.4-5.0) Globulin 3.7 g/dL Albumin/Globulin Ratio 0.9 (1.0-2.7) L Salicylates Level 1.0 ug/mL (2.8-20) L Urine Opiates Screen Negative (NEGATIVE) Acetaminophen Level < 10 MCG/ML (10-30) L Urine Barbiturates Screen Negative (NEGATIVE) Phencyclidine (PCP) Screen Negative (NEGATIVE) Urine Amphetamines Screen Negative (NEGATIVE) Urine Benzodiazepines Screen Negative (NEGATIVE) Urine Cocaine Screen Negative (NEGATIVE) Urine Marijuana (THC) Screen Negative (NEGATIVE) Serum Alcohol < 3 mg/dL CT/MRI/US Diagnostic Results CT/MRI/US Diagnostic Results : Imaging Test Ordered: CT Head Impression Findings: No acute hemorrhage or edema. No mass effect or midline shift. Normal size ventricles. Mild prominence to the extra-axial CSF spaces. There is periventricular deep white matter low-attenuation. Otherwise normal jones-white differentiation. Old lacunar infarct is seen in the right external capsule region. There is minimal ethmoid sinus disease on the right.. There is inward displacement of the medial wall of the right orbit. Impression: Negative for acute intracranial bleed or mass effect Mild prominence of the extra-axial CSF spaces, likely age-related but striking for age. Old right basal ganglia region lacunar infarct Bilateral periventricular deep white matter low attenuation, likely on the basis of chronic ischemic change Last Vital Signs Date Time Temp Pulse Resp B/P (MAP) Pulse Ox O2 Delivery O2 Flow Rate FiO2 06/05/17 11:42 98.6 59 18 113/71 98 Room Air Disposition: ADMITTED INPATIENT Condition: Serious Referrals: JULY RUBINPCP) Clinton Ferguson M.D. Jun 05, 2017 12:55
--- NOTE | 2017-06-05 12:56 | Diagnostic Imaging Report ---
Indication: Chest pain Technique: One view of the chest Comparison: 12/25/2016 Findings: Left chest biventricular AICD is again demonstrated. The heart is enlarged there is equivocal minimal interstitial congestion, more striking than previous. No definite effusions or infiltrates Impression: Equivocal minimal interstitial congestion. Correlate with clinical findings Other findings as noted
[2017-06-05] MEDS ORDERED: AMIODARONE HCL400 M1 ORAL (14:03)
[2017-06-05] MEDS ORDERED: FERROUS SULFAT325 MG ORAL (14:03)
[2017-06-05] MEDS ORDERED: FUROSEMIDE20 M1 ORAL (14:03)
[2017-06-05] MEDS ORDERED: LISINOPRIL5 MG ORAL (14:03)
[2017-06-05] MEDS ORDERED: CARVEDILOL25 MG ORAL (14:03)
[2017-06-05] MEDS ORDERED: PLAVIX75 MG ORAL (14:03)
[2017-06-05] MEDS ORDERED: PROTONIX20 MG ORAL (14:03)
[2017-06-05 14:20] VITALS: BP 135/68
--- NOTE | 2017-06-05 14:22 | Cardiac Electrophysiology PN ---
Subjective Subjective Dictated [id number] Objective Last 24 Hour Vital Signs Date Time Temp Pulse Resp B/P (MAP) Pulse Ox O2 Delivery O2 Flow Rate FiO2 06/05/17 11:42 98.6 59 18 113/71 98 Room Air JADE GAYLE Jun 05, 2017 14:22
--- NOTE | 2017-06-05 14:22 | Cardiac Electrophysiology PN ---
Subjective Subjective Dictated [id number] Objective Last 24 Hour Vital Signs Date Time Temp Pulse Resp B/P (MAP) Pulse Ox O2 Delivery O2 Flow Rate FiO2 06/05/17 11:42 98.6 59 18 113/71 98 Room Air JADE GAYLE Jun 05, 2017 14:22
--- NOTE | 2017-06-05 14:22 | Cardiac Electrophysiology PN ---
Subjective Subjective Dictated [id number] Objective Last 24 Hour Vital Signs Date Time Temp Pulse Resp B/P (MAP) Pulse Ox O2 Delivery O2 Flow Rate FiO2 06/05/17 11:42 98.6 59 18 113/71 98 Room Air JADE GAYLE Jun 05, 2017 14:22
[2017-06-05 15:08] LABS: BASOPHILS % (AUTO) 0.7 % (0.0-2.0); EOSINOPHILS % (AUTO) 3.1 % (0.0-3.0); HEMATOCRIT 36.8 % (37.0-47.0); HEMOGLOBIN 11.4 G/DL (12.0-16.0); LYMPHOCYTES % (AUTO) 19.3 % (20.0-45.0); MEAN CORPUSCULAR VOLUME 86 FL (80-99); MONOCYTES % (AUTO) 12.3 % (1.0-10.0); NEUTROPHILS % (AUTO) 64.5 % (45.0-75.0); PLATELET COUNT 262 K/UL (150-450); RED BLOOD COUNT 4.27 M/UL (4.20-5.40); RED CELL DISTRIBUTION WIDTH 17.5 % (11.6-14.8); WHITE BLOOD COUNT 8.1 K/UL (4.8-10.8)
--- NOTE | 2017-06-05 15:29 | History and Physical ---
History of Present Illness General Date patient seen: Jun 05, 2017 Reason for Hospitalization: Altered Mental Status Present Illness HPI 56-year-old female with pmhx of history of cardiomyopathy, ICD, COPD, renal insufficiency presented to from residential with cc of one episode of slurred speech and erratic behavior. She had chest pain that started this morning. Left-sided, radiating to left arm, with shortness of breath. Also states that she has had palpitations. Denies any fever chills nausea vomiting or cough. She is admitted to telemetry for ACS and possible TIA. Allergies: Coded Allergies: ASPIRIN (Unverified Allergy, Unknown, 10/13/14) PENICILLINS (Unverified Allergy, Unknown, 10/13/14) Medication History Scheduled Albuterol Sulfate (Albuterol Sulfate), 5 MG IH Q8HR, (Reported) Amiodarone Hcl* (Amiodarone Hcl*), 400 MG ORAL EVERY 12 HOURS, (Reported) Amlodipine Besylate* (Amlodipine Besylate*), 5 MG ORAL DAILY, (Reported) Atorvastatin Calcium* (Atorvastatin Calcium*), 10 MG ORAL BEDTIME, (Reported) Carvedilol* (Carvedilol*), 25 MG ORAL EVERY 12 HOURS, (Reported) Clopidogrel Bisulfate* (Plavix*), 75 MG ORAL DAILY, (Reported) Digoxin* (Digoxin*), 125 MCG ORAL DAILY, (Reported) Ferrous Sulfate* (Ferrous Sulfate*), 325 MG ORAL THREE TIMES A DAY, (Reported) Furosemide* (Lasix*), 20 MG ORAL DAILY, (Reported) Lisinopril (Lisinopril*), 2.5 MG ORAL DAILY, (Reported) Pantoprazole Sodium (Protonix), 20 MG ORAL DAILY, (Reported) Prednisone* (Prednisone*), 50 MG ORAL DAILY Scheduled PRN Acetaminophen* (Tylenol Extra Strength*), 1,000 MG ORAL Q4HR PRN for Moderate Pain (Pain Scale 4-6), (Reported) Acetaminophen* (Acetaminophen 325MG Tablet*), 650 MG ORAL Q4H PRN for Mild Pain (Pain Scale 1-3), (Reported) Alprazolam* (Xanax*), 0.25 MG ORAL Q6HR PRN for For Anxiety, (Reported) Hydrocodone Bit/Acetaminophen 10-325* (Hydrocodon-Acetaminophn 10-325*), 1 TAB ORAL Q4H PRN for Severe Pain (Pain Scale 7-10), (Reported) Ipratropium [place] 0.5MG/2.5ML (Ipratropium [place] 0.5MG/2.5ML), 0.5 MG HHN Q4HR PRN for Shortness of Breath, (Reported) Ondansetron* (Zofran*), 4 MG ORAL Q6H PRN for Nausea & Vomiting, (Reported) Discontinued Medications Albuterol Sulfate (Ventolin Hfa), 2 PUFFS INH EVERY 6 HOURS, (Reported) Discontinued Reason: Pt stopped taking med Azithromycin* (Zithromax*), 250 MG ORAL DAILY Discontinued Reason: Pt stopped taking med Azithromycin* (Zithromax*), 250 MG ORAL DAILY, (Reported) Discontinued Reason: Pt stopped taking med Benazepril Hcl* (Benazepril Hcl*), 20 MG ORAL DAILY, (Reported) Discontinued Reason: Pt stopped taking med Furosemide* (Lasix*), 40 MG ORAL DAILY, (Reported) Discontinued Reason: Pt stopped taking med Omeprazole (Omeprazole), 20 MG ORAL DAILY, (Reported) Discontinued Reason: Pt stopped taking med Potassium Chloride (Potassium Chloride), 8 MEQ PO DAILY, (Reported) Discontinued Reason: Pt stopped taking med Patient History Healthcare decision maker Resuscitation status Advanced Directive on File Past Medical/Surgical History Past Medical/Surgical History: (1) ICD (implantable cardioverter-defibrillator) in place (2) Cardiomyopathy Review of Systems All Other Systems: negative except mentioned in HPI Physical Exam General Appearance: WD/WN Lines, tubes and drains: peripheral HEENT: normocephalic, atraumatic Neck: non-tender, normal alignment, limited range of motion Respiratory/Chest: chest wall non-tender, lungs clear Breasts: no masses Cardiovascular/Chest: normal peripheral pulses, normal rate Abdomen: normal bowel sounds, non tender Genitourinary/Rectal: normal genital exam, normal rectal exam Skin Exam: normal pigmentation Neurologic: 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 supervisor II-XII grossly normal Last 24 Hour Vital Signs Date Time Temp Pulse Resp B/P (MAP) Pulse Ox O2 Delivery O2 Flow Rate FiO2 06/05/17 14:20 60 23 135/68 100 Room Air 06/05/17 12:10 97.8 84 13 142/69 100 Room Air 06/05/17 11:42 98.6 59 18 113/71 98 Room Air Laboratory Tests Test 06/05/17 14:58 White Blood Count 8.1 K/UL (4.8-10.8) Red Blood Count 4.27 M/UL (4.20-5.40) Hemoglobin 11.4 G/DL (12.0-16.0) L Hematocrit 36.8 % (37.0-47.0) L Mean Corpuscular Volume 86 FL (80-99) Mean Corpuscular Hemoglobin 26.8 PG (27.0-31.0) L Mean Corpuscular Hemoglobin Concent 31.0 G/DL (32.0-36.0) L Red Cell Distribution Width 17.5 % (11.6-14.8) H Platelet Count 262 K/UL (150-450) Mean Platelet Volume 8.1 FL (6.5-10.1) Neutrophils (%) (Auto) 64.5 % (45.0-75.0) Lymphocytes (%) (Auto) 19.3 % (20.0-45.0) L Monocytes (%) (Auto) 12.3 % (1.0-10.0) H Eosinophils (%) (Auto) 3.1 % (0.0-3.0) H Basophils (%) (Auto) 0.7 % (0.0-2.0) Sodium Level Pending Potassium Level Pending Chloride Level Pending Carbon Dioxide Level Pending Blood Urea Nitrogen Pending Creatinine Pending Estimat Glomerular Filtration Rate Pending Glucose Level Pending Calcium Level Pending Total Bilirubin Pending Aspartate Amino Transf (AST/SGOT) Pending Alanine Aminotransferase (ALT/SGPT) Pending Alkaline Phosphatase Pending Total Creatine Kinase Pending Creatine Kinase MB Pending Troponin I Pending Total Protein Pending Albumin Pending Globulin Pending Salicylates Level Pending Urine Opiates Screen Pending Acetaminophen Level Pending Urine Barbiturates Screen Pending Phencyclidine (PCP) Screen Pending Urine Amphetamines Screen Pending Urine Benzodiazepines Screen Pending Urine Cocaine Screen Pending Urine Marijuana (THC) Screen Pending Serum Alcohol Pending Height (Feet): 5 Height (Inches): 4.00 Weight (Pounds): 175 Medications Current Medications Medications (Trade) Dose Ordered Sig/Dino Route PRN Reason Start Time Stop Time Status Last Admin Dose Admin Furosemide (Lasix) 40 mg EVERY 12 HOURS IV 06/05/17 21:00 07/05/17 20:59 Assessment/Plan Problem List: (1) Acute coronary syndrome ICD Codes: I24.9 - Acute coronary syndrome SNOMED: 877819616 (2) Slurring of speech ICD Codes: R47.81 - Slurred speech SNOMED: 093856482 (3) ICD (implantable cardioverter-defibrillator) in place ICD Codes: Z95.810 - Presence of automatic (implantable) cardiac defibrillator SNOMED: 136802595, 140674708 (4) Drug abuse ICD Codes: F19.10 - Other psychoactive substance abuse, uncomplicated SNOMED: 93107078 (5) Cardiomyopathy ICD Codes: I42.9 - Cardiomyopathy, unspecified SNOMED: 02842341 Assessment/Plan serial ekg, troponin neuro evaluation check echo cardiology evaluation. BRENDA GRANGER Jun 05, 2017 15:29
--- NOTE | 2017-06-05 15:29 | History and Physical ---
History of Present Illness General Date patient seen: Jun 05, 2017 Reason for Hospitalization: Altered Mental Status Present Illness HPI 56-year-old female with pmhx of history of cardiomyopathy, ICD, COPD, renal insufficiency [facility] cc of one episode of slurred speech and erratic behavior. She had chest pain that started this morning. Left-sided, radiating to left arm, with shortness of breath. Also states that she has had palpitations. Denies any fever chills nausea vomiting or cough. She is admitted to telemetry for ACS and possible TIA. Allergies: Coded Allergies: ASPIRIN (Unverified Allergy, Unknown, 10/13/14) PENICILLINS (Unverified Allergy, Unknown, 10/13/14) Medication History Scheduled Albuterol Sulfate (Albuterol Sulfate), 5 MG IH Q8HR, (Reported) Amiodarone Hcl* (Amiodarone Hcl*), 400 MG ORAL EVERY 12 HOURS, (Reported) Amlodipine Besylate* (Amlodipine Besylate*), 5 MG ORAL DAILY, (Reported) Atorvastatin Calcium* (Atorvastatin Calcium*), 10 MG ORAL BEDTIME, (Reported) Carvedilol* (Carvedilol*), 25 MG ORAL EVERY 12 HOURS, (Reported) Clopidogrel Bisulfate* (Plavix*), 75 MG ORAL DAILY, (Reported) Digoxin* (Digoxin*), 125 MCG ORAL DAILY, (Reported) Ferrous Sulfate* (Ferrous Sulfate*), 325 MG ORAL THREE TIMES A DAY, (Reported) Furosemide* (Lasix*), 20 MG ORAL DAILY, (Reported) Lisinopril (Lisinopril*), 2.5 MG ORAL DAILY, (Reported) Pantoprazole Sodium (Protonix), 20 MG ORAL DAILY, (Reported) Prednisone* (Prednisone*), 50 MG ORAL DAILY Scheduled PRN Acetaminophen* (Tylenol Extra Strength*), 1,000 MG ORAL Q4HR PRN for Moderate Pain (Pain Scale 4-6), (Reported) Acetaminophen* (Acetaminophen 325MG Tablet*), 650 MG ORAL Q4H PRN for Mild Pain (Pain Scale 1-3), (Reported) Alprazolam* (Xanax*), 0.25 MG ORAL Q6HR PRN for For Anxiety, (Reported) Hydrocodone Bit/Acetaminophen 10-325* (Hydrocodon-Acetaminophn 10-325*), 1 TAB ORAL Q4H PRN for Severe Pain (Pain Scale 7-10), (Reported) Ipratropium [place] 0.5MG/2.5ML (Ipratropium [place] 0.5MG/2.5ML), 0.5 MG HHN Q4HR PRN for Shortness of Breath, (Reported) Ondansetron* (Zofran*), 4 MG ORAL Q6H PRN for Nausea & Vomiting, (Reported) Discontinued Medications Albuterol Sulfate (Ventolin Hfa), 2 PUFFS INH EVERY 6 HOURS, (Reported) Discontinued Reason: Pt stopped taking med Azithromycin* (Zithromax*), 250 MG ORAL DAILY Discontinued Reason: Pt stopped taking med Azithromycin* (Zithromax*), 250 MG ORAL DAILY, (Reported) Discontinued Reason: Pt stopped taking med Benazepril Hcl* (Benazepril Hcl*), 20 MG ORAL DAILY, (Reported) Discontinued Reason: Pt stopped taking med Furosemide* (Lasix*), 40 MG ORAL DAILY, (Reported) Discontinued Reason: Pt stopped taking med Omeprazole (Omeprazole), 20 MG ORAL DAILY, (Reported) Discontinued Reason: Pt stopped taking med Potassium Chloride (Potassium Chloride), 8 MEQ PO DAILY, (Reported) Discontinued Reason: Pt stopped taking med Patient History Healthcare decision maker Resuscitation status Advanced Directive on File Past Medical/Surgical History Past Medical/Surgical History: (1) ICD (implantable cardioverter-defibrillator) in place (2) Cardiomyopathy Review of Systems All Other Systems: negative except mentioned in HPI Physical Exam General Appearance: WD/WN Lines, tubes and drains: peripheral HEENT: normocephalic, atraumatic Neck: non-tender, normal alignment, limited range of motion Respiratory/Chest: chest wall non-tender, lungs clear Breasts: no masses Cardiovascular/Chest: normal peripheral pulses, normal rate Abdomen: normal bowel sounds, non tender Genitourinary/Rectal: normal genital exam, normal rectal exam Skin Exam: normal pigmentation 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 grossly normal Last 24 Hour Vital Signs Date Time Temp Pulse Resp B/P (MAP) Pulse Ox O2 Delivery O2 Flow Rate FiO2 06/05/17 14:20 60 23 135/68 100 Room Air 06/05/17 12:10 97.8 84 13 142/69 100 Room Air 06/05/17 11:42 98.6 59 18 113/71 98 Room Air Laboratory Tests Test 06/05/17 14:58 White Blood Count 8.1 K/UL (4.8-10.8) Red Blood Count 4.27 M/UL (4.20-5.40) Hemoglobin 11.4 G/DL (12.0-16.0) L Hematocrit 36.8 % (37.0-47.0) L Mean Corpuscular Volume 86 FL (80-99) Mean Corpuscular Hemoglobin 26.8 PG (27.0-31.0) L Mean Corpuscular Hemoglobin Concent 31.0 G/DL (32.0-36.0) L Red Cell Distribution Width 17.5 % (11.6-14.8) H Platelet Count 262 K/UL (150-450) Mean Platelet Volume 8.1 FL (6.5-10.1) Neutrophils (%) (Auto) 64.5 % (45.0-75.0) Lymphocytes (%) (Auto) 19.3 % (20.0-45.0) L Monocytes (%) (Auto) 12.3 % (1.0-10.0) H Eosinophils (%) (Auto) 3.1 % (0.0-3.0) H Basophils (%) (Auto) 0.7 % (0.0-2.0) Sodium Level Pending Potassium Level Pending Chloride Level Pending Carbon Dioxide Level Pending Blood Urea Nitrogen Pending Creatinine Pending Estimat Glomerular Filtration Rate Pending Glucose Level Pending Calcium Level Pending Total Bilirubin Pending Aspartate Amino Transf (AST/SGOT) Pending Alanine Aminotransferase (ALT/SGPT) Pending Alkaline Phosphatase Pending Total Creatine Kinase Pending Creatine Kinase MB Pending Troponin I Pending Total Protein Pending Albumin Pending Globulin Pending Salicylates Level Pending Urine Opiates Screen Pending Acetaminophen Level Pending Urine Barbiturates Screen Pending Phencyclidine (PCP) Screen Pending Urine Amphetamines Screen Pending Urine Benzodiazepines Screen Pending Urine Cocaine Screen Pending Urine Marijuana (THC) Screen Pending Serum Alcohol Pending Height (Feet): 5 Height (Inches): 4.00 Weight (Pounds): 175 Medications Current Medications Medications (Trade) Dose Ordered Sig/Dino Route PRN Reason Start Time Stop Time Status Last Admin Dose Admin Furosemide (Lasix) 40 mg EVERY 12 HOURS IV 06/05/17 21:00 07/05/17 20:59 Assessment/Plan Problem List: (1) Acute coronary syndrome ICD Codes: I24.9 - Acute coronary syndrome SNOMED: 619798958 (2) Slurring of speech ICD Codes: R47.81 - Slurred speech SNOMED: 464188699 (3) ICD (implantable cardioverter-defibrillator) in place ICD Codes: Z95.810 - Presence of automatic (implantable) cardiac defibrillator SNOMED: 930782413, 383648223 (4) Drug abuse ICD Codes: F19.10 - Other psychoactive substance abuse, uncomplicated SNOMED: 83890017 (5) Cardiomyopathy ICD Codes: I42.9 - Cardiomyopathy, unspecified SNOMED: 71411323 Assessment/Plan serial ekg, troponin neuro evaluation check echo cardiology evaluation. BRENDA GRANGER Jun 05, 2017 15:29
--- NOTE | 2017-06-05 15:29 | History and Physical ---
History of Present Illness General Date patient seen: Jun 05, 2017 Reason for Hospitalization: Altered Mental Status Present Illness HPI 56-year-old female with pmhx of history of cardiomyopathy, ICD, COPD, renal insufficiency presented to from intermediate with cc of one episode of slurred speech and erratic behavior. She had chest pain that started this morning. Left-sided, radiating to left arm, with shortness of breath. Also states that she has had palpitations. Denies any fever chills nausea vomiting or cough. She is admitted to telemetry for ACS and possible TIA. Allergies: Coded Allergies: ASPIRIN (Unverified Allergy, Unknown, 10/13/14) PENICILLINS (Unverified Allergy, Unknown, 10/13/14) Medication History Scheduled Albuterol Sulfate (Albuterol Sulfate), 5 MG IH Q8HR, (Reported) Amiodarone Hcl* (Amiodarone Hcl*), 400 MG ORAL EVERY 12 HOURS, (Reported) Amlodipine Besylate* (Amlodipine Besylate*), 5 MG ORAL DAILY, (Reported) Atorvastatin Calcium* (Atorvastatin Calcium*), 10 MG ORAL BEDTIME, (Reported) Carvedilol* (Carvedilol*), 25 MG ORAL EVERY 12 HOURS, (Reported) Clopidogrel Bisulfate* (Plavix*), 75 MG ORAL DAILY, (Reported) Digoxin* (Digoxin*), 125 MCG ORAL DAILY, (Reported) Ferrous Sulfate* (Ferrous Sulfate*), 325 MG ORAL THREE TIMES A DAY, (Reported) Furosemide* (Lasix*), 20 MG ORAL DAILY, (Reported) Lisinopril (Lisinopril*), 2.5 MG ORAL DAILY, (Reported) Pantoprazole Sodium (Protonix), 20 MG ORAL DAILY, (Reported) Prednisone* (Prednisone*), 50 MG ORAL DAILY Scheduled PRN Acetaminophen* (Tylenol Extra Strength*), 1,000 MG ORAL Q4HR PRN for Moderate Pain (Pain Scale 4-6), (Reported) Acetaminophen* (Acetaminophen 325MG Tablet*), 650 MG ORAL Q4H PRN for Mild Pain (Pain Scale 1-3), (Reported) Alprazolam* (Xanax*), 0.25 MG ORAL Q6HR PRN for For Anxiety, (Reported) Hydrocodone Bit/Acetaminophen 10-325* (Hydrocodon-Acetaminophn 10-325*), 1 TAB ORAL Q4H PRN for Severe Pain (Pain Scale 7-10), (Reported) Ipratropium [place] 0.5MG/2.5ML (Ipratropium [place] 0.5MG/2.5ML), 0.5 MG HHN Q4HR PRN for Shortness of Breath, (Reported) Ondansetron* (Zofran*), 4 MG ORAL Q6H PRN for Nausea & Vomiting, (Reported) Discontinued Medications Albuterol Sulfate (Ventolin Hfa), 2 PUFFS INH EVERY 6 HOURS, (Reported) Discontinued Reason: Pt stopped taking med Azithromycin* (Zithromax*), 250 MG ORAL DAILY Discontinued Reason: Pt stopped taking med Azithromycin* (Zithromax*), 250 MG ORAL DAILY, (Reported) Discontinued Reason: Pt stopped taking med Benazepril Hcl* (Benazepril Hcl*), 20 MG ORAL DAILY, (Reported) Discontinued Reason: Pt stopped taking med Furosemide* (Lasix*), 40 MG ORAL DAILY, (Reported) Discontinued Reason: Pt stopped taking med Omeprazole (Omeprazole), 20 MG ORAL DAILY, (Reported) Discontinued Reason: Pt stopped taking med Potassium Chloride (Potassium Chloride), 8 MEQ PO DAILY, (Reported) Discontinued Reason: Pt stopped taking med Patient History Healthcare decision maker Resuscitation status Advanced Directive on File Past Medical/Surgical History Past Medical/Surgical History: (1) ICD (implantable cardioverter-defibrillator) in place (2) Cardiomyopathy Review of Systems All Other Systems: negative except mentioned in HPI Physical Exam General Appearance: WD/WN Lines, tubes and drains: peripheral HEENT: normocephalic, atraumatic Neck: non-tender, normal alignment, limited range of motion Respiratory/Chest: chest wall non-tender, lungs clear Breasts: no masses Cardiovascular/Chest: normal peripheral pulses, normal rate Abdomen: normal bowel sounds, non tender Genitourinary/Rectal: normal genital exam, normal rectal exam Skin Exam: normal pigmentation 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 II-XII grossly normal Last 24 Hour Vital Signs Date Time Temp Pulse Resp B/P (MAP) Pulse Ox O2 Delivery O2 Flow Rate FiO2 06/05/17 14:20 60 23 135/68 100 Room Air 06/05/17 12:10 97.8 84 13 142/69 100 Room Air 06/05/17 11:42 98.6 59 18 113/71 98 Room Air Laboratory Tests Test 06/05/17 14:58 White Blood Count 8.1 K/UL (4.8-10.8) Red Blood Count 4.27 M/UL (4.20-5.40) Hemoglobin 11.4 G/DL (12.0-16.0) L Hematocrit 36.8 % (37.0-47.0) L Mean Corpuscular Volume 86 FL (80-99) Mean Corpuscular Hemoglobin 26.8 PG (27.0-31.0) L Mean Corpuscular Hemoglobin Concent 31.0 G/DL (32.0-36.0) L Red Cell Distribution Width 17.5 % (11.6-14.8) H Platelet Count 262 K/UL (150-450) Mean Platelet Volume 8.1 FL (6.5-10.1) Neutrophils (%) (Auto) 64.5 % (45.0-75.0) Lymphocytes (%) (Auto) 19.3 % (20.0-45.0) L Monocytes (%) (Auto) 12.3 % (1.0-10.0) H Eosinophils (%) (Auto) 3.1 % (0.0-3.0) H Basophils (%) (Auto) 0.7 % (0.0-2.0) Sodium Level Pending Potassium Level Pending Chloride Level Pending Carbon Dioxide Level Pending Blood Urea Nitrogen Pending Creatinine Pending Estimat Glomerular Filtration Rate Pending Glucose Level Pending Calcium Level Pending Total Bilirubin Pending Aspartate Amino Transf (AST/SGOT) Pending Alanine Aminotransferase (ALT/SGPT) Pending Alkaline Phosphatase Pending Total Creatine Kinase Pending Creatine Kinase MB Pending Troponin I Pending Total Protein Pending Albumin Pending Globulin Pending Salicylates Level Pending Urine Opiates Screen Pending Acetaminophen Level Pending Urine Barbiturates Screen Pending Phencyclidine (PCP) Screen Pending Urine Amphetamines Screen Pending Urine Benzodiazepines Screen Pending Urine Cocaine Screen Pending Urine Marijuana (THC) Screen Pending Serum Alcohol Pending Height (Feet): 5 Height (Inches): 4.00 Weight (Pounds): 175 Medications Current Medications Medications (Trade) Dose Ordered Sig/Dino Route PRN Reason Start Time Stop Time Status Last Admin Dose Admin Furosemide (Lasix) 40 mg EVERY 12 HOURS IV 06/05/17 21:00 07/05/17 20:59 Assessment/Plan Problem List: (1) Acute coronary syndrome ICD Codes: I24.9 - Acute coronary syndrome SNOMED: 290096541 (2) Slurring of speech ICD Codes: R47.81 - Slurred speech SNOMED: 823277368 (3) ICD (implantable cardioverter-defibrillator) in place ICD Codes: Z95.810 - Presence of automatic (implantable) cardiac defibrillator SNOMED: 020227385, 220841192 (4) Drug abuse ICD Codes: F19.10 - Other psychoactive substance abuse, uncomplicated SNOMED: 57133889 (5) Cardiomyopathy ICD Codes: I42.9 - Cardiomyopathy, unspecified SNOMED: 53728334 Assessment/Plan serial ekg, troponin neuro evaluation check echo cardiology evaluation. BRENDA GRANGER Jun 05, 2017 15:29
[2017-06-05] MEDS ORDERED: Albuterol/Ipratropium 3ml neb HHN PRN (15:30)
[2017-06-05] MEDS ORDERED: Miralax 17gm pkt ORAL PRN (15:30)
[2017-06-05] MEDS ORDERED: Enalaprilat 2.5mg/2ml Inj IV PRN (15:30)
[2017-06-05] MEDS ORDERED: dilTIAZem HCl 25mg/5ml Inj IV PRN (15:30)
[2017-06-05] MEDS ORDERED: Nitroglycerin Subl 0.4mg tab SL PRN (15:30)
[2017-06-05 16:00] VITALS: BP 139/70
[2017-06-05 16:23] LABS: ALANINE AMINOTRANSFERASE 33 U/L (12-78); ALBUMIN 3.5 G/DL (3.4-5.0); ALBUMIN/GLOBULIN RATIO 0.9 (1.0-2.7); ALKALINE PHOSPHATASE 166 U/L (46-116); ANION GAP 8 mmol/L (5-15); ASPARTATE AMINO TRANSFERASE 25 U/L (15-37); BILIRUBIN,TOTAL 0.2 MG/DL (0.2-1.0); BLOOD UREA NITROGEN 26 mg/dL (7-18); CALCIUM 9.8 MG/DL (8.5-10.1); CARBON DIOXIDE 27 MMOL/L (21-32); CHLORIDE 105 MMOL/L (98-107); CKMB 3.6 NG/ML (0.0-3.6); CREATINE KINASE 51 U/L (26-308); CREATININE 1.4 MG/DL (0.55-1.30); POTASSIUM 3.9 MMOL/L (3.5-5.1); SODIUM 140 MMOL/L (136-145)
[2017-06-05 16:55] VITALS: BP 125/60
--- NOTE | 2017-06-05 17:37 | Cardiology Progress Note ---
Assessment/Plan Assessment/Plan [id number] Objective Last 24 Hour Vital Signs Date Time Temp Pulse Resp B/P (MAP) Pulse Ox O2 Delivery O2 Flow Rate FiO2 06/05/17 16:55 97.8 58 19 125/60 99 Room Air 06/05/17 16:55 98.0 58 19 125/60 99 Room Air 06/05/17 16:00 65 19 139/70 98 Room Air 06/05/17 14:20 60 23 135/68 100 Room Air 06/05/17 12:10 97.8 84 13 142/69 100 Room Air 06/05/17 11:42 98.6 59 18 113/71 98 Room Air Laboratory Tests Test 06/05/17 14:58 06/05/17 17:30 White Blood Count 8.1 K/UL (4.8-10.8) Red Blood Count 4.27 M/UL (4.20-5.40) Hemoglobin 11.4 G/DL (12.0-16.0) L Hematocrit 36.8 % (37.0-47.0) L Mean Corpuscular Volume 86 FL (80-99) Mean Corpuscular Hemoglobin 26.8 PG (27.0-31.0) L Mean Corpuscular Hemoglobin Concent 31.0 G/DL (32.0-36.0) L Red Cell Distribution Width 17.5 % (11.6-14.8) H Platelet Count 262 K/UL (150-450) Mean Platelet Volume 8.1 FL (6.5-10.1) Neutrophils (%) (Auto) 64.5 % (45.0-75.0) Lymphocytes (%) (Auto) 19.3 % (20.0-45.0) L Monocytes (%) (Auto) 12.3 % (1.0-10.0) H Eosinophils (%) (Auto) 3.1 % (0.0-3.0) H Basophils (%) (Auto) 0.7 % (0.0-2.0) Sodium Level 140 MMOL/L (136-145) Potassium Level 3.9 MMOL/L (3.5-5.1) Chloride Level 105 MMOL/L (98-107) Carbon Dioxide Level 27 MMOL/L (21-32) Anion Gap 8 mmol/L (5-15) Blood Urea Nitrogen 26 mg/dL (7-18) H Creatinine 1.4 MG/DL (0.55-1.30) H Estimat Glomerular Filtration Rate 47.3 mL/min (>60) Glucose Level 83 MG/DL (74-106) Calcium Level 9.8 MG/DL (8.5-10.1) Total Bilirubin 0.2 MG/DL (0.2-1.0) Aspartate Amino Transf (AST/SGOT) 25 U/L (15-37) Alanine Aminotransferase (ALT/SGPT) 33 U/L (12-78) Alkaline Phosphatase 166 U/L (46-116) H Total Creatine Kinase 51 U/L (26-308) Creatine Kinase MB 3.6 NG/ML (0.0-3.6) Creatine Kinase MB Relative Index 7.0 Troponin I 0.064 ng/mL (0.000-0.056) Pending Total Protein 7.2 G/DL (6.4-8.2) Albumin 3.5 G/DL (3.4-5.0) Globulin 3.7 g/dL Albumin/Globulin Ratio 0.9 (1.0-2.7) L Salicylates Level 1.0 ug/mL (2.8-20) L Urine Opiates Screen Negative (NEGATIVE) Acetaminophen Level < 10 MCG/ML (10-30) L Urine Barbiturates Screen Negative (NEGATIVE) Phencyclidine (PCP) Screen Negative (NEGATIVE) Urine Amphetamines Screen Negative (NEGATIVE) Urine Benzodiazepines Screen Negative (NEGATIVE) Urine Cocaine Screen Negative (NEGATIVE) Urine Marijuana (THC) Screen Negative (NEGATIVE) Serum Alcohol < 3 mg/dL JAQUELINE BARRAZA Jun 05, 2017 17:37
[2017-06-05] MEDS: Lisinopril 10mg tab ORAL SCH (19:34)
[2017-06-05 20:00] VITALS: BP 132/62
[2017-06-05] MEDS: Carvedilol 25mg Tab ORAL SCH (20:47)
[2017-06-05] MEDS: Heparin 5000 units/ml inj SUBQ SCH ×3 (20:47→21:04)
[2017-06-05] MEDS: Morphine Sulfate 4mg/ml Inj IVP PRN (20:49)
[2017-06-06] VITALS: BP 112/54
[2017-06-06] MEDS: Morphine Sulfate 4mg/ml Inj IVP PRN ×6 (01:41→22:34)
--- NOTE | 2017-06-06 03:00 | Consultation ---
DATE OF CONSULTATION: 06/05/2017 CARDIOLOGY CONSULTATION CONSULTING PHYSICIAN: Ralhp Parada M.D. REFERRING PHYSICIAN: Mellisa Ko M.D. REASON FOR REFERRAL: Congestive heart failure. HISTORY OF PRESENT ILLNESS: This is an elderly female, who is well known to me from prior evaluation and hospitalization. The patient presented to the hospital because of increasing shortness of breath. She ran out of her medications for approximately 1-1/2 weeks or so. She has not seen a doctor for approximately two months and so she got short of breath last night. Over the past three to four days, she has increasing shortness of breath to the point that she is waking up at night because of shortness of breath. She has four to five pillow usage at night. She has dyspnea on exertion with limited activity that she is capable of doing. Occasional palpitation. Occasional dizziness and lightheadedness. PAST MEDICAL HISTORY: Positive for history of non-syncopal fall, hypertension, medication noncompliance, renal insufficiency, history of intracardiac defibrillator implantation, congestive heart failure, cardiomyopathy, hyperlipidemia, obesity, and asthma. ALLERGIES: She is allergic to aspirin and penicillin. SOCIAL HISTORY: She quit smoking number of years ago. She drinks alcoholic beverages. She has used marijuana before. REVIEW OF SYSTEMS: GASTROINTESTINAL: She has occasional constipation and diarrhea. No bloody stools or black tarry stools. No burning on urination. PULMONARY: Occasional coughing and wheezing. CONSTITUTIONAL: Occasional fevers. PHYSICAL EXAMINATION: GENERAL: Physical examination shows her to be an elderly female, in no respiratory distress. NECK: Supple. No jugular venous distention. LUNGS: Crackles noted at the bases. CARDIAC: Regular rate and rhythm. No heaves, thrills, or gallops noted. Chest wall pacing device palpated. ABDOMEN: Soft and obese. Positive bowel sounds. EXTREMITIES: Right, no edema. Left is in a cast from a recent fall. LABORATORY VALUES: White count 8.1, hemoglobin 11.4, and platelet count 262. Sodium was 140, potassium 3.9, chloride 105, bicarbonate 27, BUN 26, creatinine 1.4, and glucose of 83. Calcium is 9.8. Alkaline phosphatase of 153. Troponin is 0.064. Her chest x-ray performed today shows equivocal minimal interstitial congestion. Her last echocardiogram here in December showed an ejection fraction of 35% to 40% with moderate MR and quite a technically difficult study. ASSESSMENT: 1. Congestive heart failure, acute systolic. 2. Cardiomyopathy. 3. History of intracardiac defibrillator implantation. 4. Medication nonadherence. 5. History of renal insufficiency. 6. Hyperlipidemia. 7. Obesity. 8. History of asthma. PLAN: This patient was seen in cardiac consultation. The patient will be resumed back on medications of REJI inhibitors, beta-blockers, and of course, at the present time will have diuretics. The importance of compliance with medication and fluid restriction discussed with the patient. We will follow the patient along with you. Ralph Parada M.D. DR: JOAQUIN JOB#: [id number] CC:
[2017-06-06] MEDS ORDERED: HYDROCODON-ACE1 EA13 ORAL (03:05)
[2017-06-06] MEDS ORDERED: TYLENOL EXTRA500 MG ORAL (03:05)
[2017-06-06] MEDS ORDERED: ALBUTEROL S5 MG/1 ML IH (03:05)
[2017-06-06] MEDS ORDERED: ZOFRAN4 M3 ORAL (03:05)
[2017-06-06] MEDS ORDERED: IPRATROPIU0.2 MG/1 M HHN (03:05)
[2017-06-06] MEDS ORDERED: ACETAMINOPHEN325 M1 ORAL (03:05)
[2017-06-06] MEDS ORDERED: XANAX0.25 MG ORAL (03:05)
[2017-06-06 04:00] VITALS: BP 126/61
[2017-06-06 08:00] VITALS: BP 126/67
--- NOTE | 2017-06-06 08:31 | Consultation ---
DATE OF CONSULTATION: 06/05/2017 CARDIOLOGY CONSULTATION CONSULTING PHYSICIAN: Otoniel Chapin M.D. REFERRING PHYSICIAN: Mellisa Ko M.D. REASON FOR CONSULTATION: Congestive heart failure and shortness of breath as well as evaluation of the patient's defibrillator. HISTORY OF PRESENT ILLNESS: The patient is a 56-year-old lady with history of hypertension and congestive heart failure as well as chronic kidney disease with a history of Medtronic defibrillator implantation and generator change in the past as well as COPD, presented to the emergency room for slurring of speech and erratic behavior. The patient was also complaining of left-sided chest pain radiating to the left arm as well as shortness of breath. In the emergency room, the patient was speaking fine and was alert and oriented, in no apparent distress. PAST MEDICAL HISTORY: 1. Hypertension. 2. History of congestive heart failure. 3. Status post defibrillator implantation with a Medtronic defibrillator. 4. Left bundle-branch block. 5. Asthma. 6. COPD. SOCIAL HISTORY: Denies smoking or drinking alcohol. FAMILY HISTORY: Noncontributory. REVIEW OF SYSTEMS: Review of systems was performed and was negative other than what was mentioned in the history of present illness. PHYSICAL EXAMINATION: VITAL SIGNS: Blood pressure is 113/71, pulse is 59, respirations 18, and she is afebrile. HEAD AND NECK: Mild JVD. LUNGS: Decreased breath sounds. CARDIOVASCULAR: Shows regular S1 and S2 with no gallop or murmur. Defibrillator . ABDOMEN: Soft. EXTREMITIES: There is no pitting edema. The left leg has a fracture. IMAGING: An x-ray on 05/19/2017 showed fracture of the proximal tibial and fibular head. ASSESSMENT AND PLAN: 1. Chest pain. The pain is nonspecific. EKG with left bundle-branch block and is not helpful. We will completely rule out myocardial infarction protocol. We will repeat the echocardiogram. Her electrocardiogram in December showed ejection fraction of 35%. 2. Status post Medtronic defibrillator implantation. We will try to interrogate the defibrillator to make sure it is functioning normally. 3. Hyperlipidemia. 4. Chronic kidney disease. 5. . 6. Chronic obstructive pulmonary disease and asthma. Further evaluation by Dr. Ko. Thank you very much, Dr. Ko, for allowing me to participate in the care of this patient. Please do not hesitate to contact me if you have any questions regarding my evaluation. Otoniel Chapin M.D. DR: JEANA JOB#: [id number] CC:
[2017-06-06 09:20] LABS: BASOPHILS % (AUTO) 1.1 % (0.0-2.0); EOSINOPHILS % (AUTO) 5.2 % (0.0-3.0); HEMATOCRIT 34.4 % (37.0-47.0); HEMOGLOBIN 10.9 G/DL (12.0-16.0); LYMPHOCYTES % (AUTO) 23.3 % (20.0-45.0); MEAN CORPUSCULAR VOLUME 86 FL (80-99); MONOCYTES % (AUTO) 11.7 % (1.0-10.0); NEUTROPHILS % (AUTO) 58.7 % (45.0-75.0); PLATELET COUNT 217 K/UL (150-450); RED BLOOD COUNT 4.02 M/UL (4.20-5.40); RED CELL DISTRIBUTION WIDTH 17.7 % (11.6-14.8); WHITE BLOOD COUNT 5.9 K/UL (4.8-10.8)
[2017-06-06] MEDS: Digoxin 0.125mg tab ORAL SCH (09:25)
[2017-06-06] MEDS: Lisinopril 10mg tab ORAL SCH (09:43)
[2017-06-06] MEDS: Heparin 5000 units/ml inj SUBQ SCH ×2 (09:44→21:30)
[2017-06-06] MEDS: Carvedilol 25mg Tab ORAL SCH ×3 (09:44→21:40)
[2017-06-06 09:59] LABS: ANION GAP 9 mmol/L (5-15); BLOOD UREA NITROGEN 30 mg/dL (7-18); CALCIUM 9.2 MG/DL (8.5-10.1); CARBON DIOXIDE 27 MMOL/L (21-32); CHLORIDE 105 MMOL/L (98-107); CREATININE 1.7 MG/DL (0.55-1.30); POTASSIUM 3.9 MMOL/L (3.5-5.1); SODIUM 141 MMOL/L (136-145)
[2017-06-06 10:09] LABS: CHOLESTEROL 173 MG/DL (< 200); HDL CHOLESTEROL 68 MG/DL (40-60); TRIGLYCERIDES 86 MG/DL (0-200)
--- NOTE | 2017-06-06 10:37 | Cardiac Electrophysiology PN ---
Assessment/Plan Assessment/Plan 1. Status post Medtronic defibrillator implantation.Says hasn't been interrogated for more than 2 years!. We will interrogate the ICD today. 2. Chest pain. The pain is nonspecific. EKG with left bundle-branch block and is not helpful. Rule out for myocardial infarction Echocardiogram pending. Echo in December showed ejection fraction of 35%. 3. Hyperlipidemia. 4. Chronic kidney disease. 5. Chronic obstructive pulmonary disease and asthma. Further evaluation by Dr. Ko. Subjective Subjective Comfortable in NAD. No arrhythmias on tele. Objective Last 24 Hour Vital Signs Date Time Temp Pulse Resp B/P (MAP) Pulse Ox O2 Delivery O2 Flow Rate FiO2 06/06/17 09:44 65 126/67 06/06/17 09:44 65 126/67 06/06/17 09:43 126/67 06/06/17 09:25 68 06/06/17 07:48 68 16 Room Air 06/06/17 04:00 98.1 64 20 126/61 Room Air 06/06/17 04:00 64 06/06/17 00:00 59 06/06/17 00:00 98.6 63 20 112/54 100 Room Air 06/05/17 20:47 6 132/62 06/05/17 20:00 98.1 65 20 132/62 94 Room Air 06/05/17 20:00 69 06/05/17 19:51 63 18 Room Air 06/05/17 19:34 125/60 06/05/17 16:55 97.8 58 19 125/60 99 Room Air 06/05/17 16:55 98.0 58 19 125/60 99 Room Air 06/05/17 16:00 65 19 139/70 98 Room Air 06/05/17 14:20 60 23 135/68 100 Room Air 06/05/17 12:10 97.8 84 13 142/69 100 Room Air 06/05/17 11:42 98.6 59 18 113/71 98 Room Air Laboratory Tests Test 06/05/17 14:58 06/05/17 17:30 06/06/17 08:50 White Blood Count 8.1 K/UL (4.8-10.8) 5.9 K/UL (4.8-10.8) Red Blood Count 4.27 M/UL (4.20-5.40) 4.02 M/UL (4.20-5.40) L Hemoglobin 11.4 G/DL (12.0-16.0) L 10.9 G/DL (12.0-16.0) L Hematocrit 36.8 % (37.0-47.0) L 34.4 % (37.0-47.0) L Mean Corpuscular Volume 86 FL (80-99) 86 FL (80-99) Mean Corpuscular Hemoglobin 26.8 PG (27.0-31.0) L 27.2 PG (27.0-31.0) Mean Corpuscular Hemoglobin Concent 31.0 G/DL (32.0-36.0) L 31.8 G/DL (32.0-36.0) L Red Cell Distribution Width 17.5 % (11.6-14.8) H 17.7 % (11.6-14.8) H Platelet Count 262 K/UL (150-450) 217 K/UL (150-450) Mean Platelet Volume 8.1 FL (6.5-10.1) 7.9 FL (6.5-10.1) Neutrophils (%) (Auto) 64.5 % (45.0-75.0) 58.7 % (45.0-75.0) Lymphocytes (%) (Auto) 19.3 % (20.0-45.0) L 23.3 % (20.0-45.0) Monocytes (%) (Auto) 12.3 % (1.0-10.0) H 11.7 % (1.0-10.0) H Eosinophils (%) (Auto) 3.1 % (0.0-3.0) H 5.2 % (0.0-3.0) H Basophils (%) (Auto) 0.7 % (0.0-2.0) 1.1 % (0.0-2.0) Sodium Level 140 MMOL/L (136-145) 141 MMOL/L (136-145) Potassium Level 3.9 MMOL/L (3.5-5.1) 3.9 MMOL/L (3.5-5.1) Chloride Level 105 MMOL/L (98-107) 105 MMOL/L (98-107) Carbon Dioxide Level 27 MMOL/L (21-32) 27 MMOL/L (21-32) Anion Gap 8 mmol/L (5-15) 9 mmol/L (5-15) Blood Urea Nitrogen 26 mg/dL (7-18) H 30 mg/dL (7-18) H Creatinine 1.4 MG/DL (0.55-1.30) H 1.7 MG/DL (0.55-1.30) H Estimat Glomerular Filtration Rate 47.3 mL/min (>60) 37.8 mL/min (>60) Glucose Level 83 MG/DL (74-106) 91 MG/DL (74-106) Calcium Level 9.8 MG/DL (8.5-10.1) 9.2 MG/DL (8.5-10.1) Total Bilirubin 0.2 MG/DL (0.2-1.0) Aspartate Amino Transf (AST/SGOT) 25 U/L (15-37) Alanine Aminotransferase (ALT/SGPT) 33 U/L (12-78) Alkaline Phosphatase 166 U/L (46-116) H Total Creatine Kinase 51 U/L (26-308) Creatine Kinase MB 3.6 NG/ML (0.0-3.6) Creatine Kinase MB Relative Index 7.0 Troponin I 0.064 ng/mL (0.000-0.056) 0.067 ng/mL (0.000-0.056) 0.047 ng/mL (0.000-0.056) Total Protein 7.2 G/DL (6.4-8.2) Albumin 3.5 G/DL (3.4-5.0) Globulin 3.7 g/dL Albumin/Globulin Ratio 0.9 (1.0-2.7) L Salicylates Level 1.0 ug/mL (2.8-20) L Urine Opiates Screen Negative (NEGATIVE) Acetaminophen Level < 10 MCG/ML (10-30) L Urine Barbiturates Screen Negative (NEGATIVE) Phencyclidine (PCP) Screen Negative (NEGATIVE) Urine Amphetamines Screen Negative (NEGATIVE) Urine Benzodiazepines Screen Negative (NEGATIVE) Urine Cocaine Screen Negative (NEGATIVE) Urine Marijuana (THC) Screen Negative (NEGATIVE) Serum Alcohol < 3 mg/dL Prothrombin Time 10.2 SEC (9.30-11.50) Prothromb Time International Ratio 1.0 (0.9-1.1) Activated Partial Thromboplast Time 26 SEC (23-33) C-Reactive Protein, Quantitative 1.3 mg/dL (0.00-0.90) H Pro-B-Type Natriuretic Peptide 1407 pg/mL (0-125) H Triglycerides Level 86 MG/DL (0-200) Cholesterol Level 173 MG/DL (< 200) LDL Cholesterol 85 mg/dL (<100) HDL Cholesterol 68 MG/DL (40-60) H Cholesterol/HDL Ratio 2.5 (3.3-4.4) L Thyroid Stimulating Hormone (TSH) 1.199 uiU/mL (0.360-3.740) Free Thyroxine 1.19 NG/DL (0.10-1.46) Digoxin Level 0.7 NG/ML (0.9-2.0) L Objective HEAD AND NECK: Mild JVD. LUNGS: Decreased breath sounds. CARDIOVASCULAR: Shows regular S1 and S2 with no gallop or murmur. Defibrillator left subclavian intact. ABDOMEN: Soft. EXTREMITIES: There is no pitting edema. The left leg has a fracture. JADE GAYLE Jun 06, 2017 10:37
[2017-06-06 12:00] VITALS: BP 113/62
--- NOTE | 2017-06-06 14:45 | Pulmonology Progress Note ---
Assessment/Plan Problems: (1) Acute coronary syndrome (2) Slurring of speech (3) ICD (implantable cardioverter-defibrillator) in place (4) Drug abuse (5) Cardiomyopathy (6) Ankle fracture, left Assessment/Plan all noted neuro evaluation pending pt/ot Subjective ROS Limited/Unobtainable: No Constitutional: Reports: no symptoms HEENT: Repors: no symptoms Respiratory: Reports: no symptoms Allergies: Coded Allergies: ASPIRIN (Unverified Allergy, Unknown, 10/13/14) PENICILLINS (Unverified Allergy, Unknown, 10/13/14) Objective Last 24 Hour Vital Signs Date Time Temp Pulse Resp B/P (MAP) Pulse Ox O2 Delivery O2 Flow Rate FiO2 06/06/17 12:00 60 06/06/17 12:00 97.7 60 20 113/62 97 Room Air 06/06/17 09:44 65 126/67 06/06/17 09:44 65 126/67 06/06/17 09:43 126/67 06/06/17 09:25 68 06/06/17 08:00 97.9 65 20 126/67 97 Room Air 06/06/17 08:00 67 06/06/17 07:48 68 16 Room Air 06/06/17 04:00 98.1 64 20 126/61 Room Air 06/06/17 04:00 64 06/06/17 00:00 59 06/06/17 00:00 98.6 63 20 112/54 100 Room Air 06/05/17 20:47 6 132/62 06/05/17 20:00 98.1 65 20 132/62 94 Room Air 06/05/17 20:00 69 06/05/17 19:51 63 18 Room Air 06/05/17 19:34 125/60 06/05/17 16:55 97.8 58 19 125/60 99 Room Air 06/05/17 16:55 98.0 58 19 125/60 99 Room Air 06/05/17 16:00 65 19 139/70 98 Room Air General Appearance: WD/WN, no acute distress HEENT: normocephalic Respiratory/Chest: chest wall non-tender, lungs clear Breasts: no masses Cardiovascular: normal peripheral pulses Abdomen: normal bowel sounds, soft, non tender Genitourinary: normal external genitalia Extremities: no clubbing Skin: no lesions Laboratory Tests 06/05/17 14:58: White Blood Count 8.1, Red Blood Count 4.27, Hemoglobin 11.4L, Hematocrit 36.8L , Mean Corpuscular Volume 86, Mean Corpuscular Hemoglobin 26.8L, Mean Corpuscular Hemoglobin Concent 31.0L, Red Cell Distribution Width 17.5H, Platelet Count 262, Mean Platelet Volume 8.1, Neutrophils (%) (Auto) 64.5, Lymphocytes (%) (Auto) 19.3L, Monocytes (%) (Auto) 12.3H, Eosinophils (%) (Auto ) 3.1H, Basophils (%) (Auto) 0.7, Sodium Level 140, Potassium Level 3.9, Chloride Level 105, Carbon Dioxide Level 27, Anion Gap 8, Blood Urea Nitrogen 26H, Creatinine 1.4H, Estimat Glomerular Filtration Rate 47.3, Glucose Level 83 , Calcium Level 9.8, Total Bilirubin 0.2, Aspartate Amino Transf (AST/SGOT) 25, Alanine Aminotransferase (ALT/SGPT) 33, Alkaline Phosphatase 166H, Total Creatine Kinase 51, Creatine Kinase MB 3.6, Creatine Kinase MB Relative Index 7.0, Troponin I 0.064H, Total Protein 7.2, Albumin 3.5, Globulin 3.7, Albumin/ Globulin Ratio 0.9L, Salicylates Level 1.0L, Urine Opiates Screen Negative, Acetaminophen Level < 10L, Urine Barbiturates Screen Negative, Phencyclidine ( PCP) Screen Negative, Urine Amphetamines Screen Negative, Urine Benzodiazepines Screen Negative, Urine Cocaine Screen Negative, Urine Marijuana (THC) Screen Negative, Serum Alcohol < 3 06/05/17 17:30: Troponin I 0.067H 06/06/17 08:50: White Blood Count 5.9, Red Blood Count 4.02L, Hemoglobin 10.9L, Hematocrit 34.4L , Mean Corpuscular Volume 86, Mean Corpuscular Hemoglobin 27.2, Mean Corpuscular Hemoglobin Concent 31.8L, Red Cell Distribution Width 17.7H, Platelet Count 217, Mean Platelet Volume 7.9, Neutrophils (%) (Auto) 58.7, Lymphocytes (%) (Auto) 23.3, Monocytes (%) (Auto) 11.7H, Eosinophils (%) (Auto) 5.2H, Basophils (%) (Auto) 1.1, Sodium Level 141, Potassium Level 3.9, Chloride Level 105, Carbon Dioxide Level 27, Anion Gap 9, Blood Urea Nitrogen 30H, Creatinine 1.7H, Estimat Glomerular Filtration Rate 37.8, Glucose Level 91, Calcium Level 9.2, Troponin I 0.047, Prothrombin Time 10.2, Prothromb Time International Ratio 1.0, Activated Partial Thromboplast Time 26, C-Reactive Protein, Quantitative 1.3H, Pro-B-Type Natriuretic Peptide 1407H, Triglycerides Level 86, Cholesterol Level 173, LDL Cholesterol 85, HDL Cholesterol 68H, Cholesterol/HDL Ratio 2.5L, Thyroid Stimulating Hormone (TSH) 1.199, Free Thyroxine 1.19, Digoxin Level 0.7L Current Medications Medications (Trade) Dose Ordered Sig/Dino Route PRN Reason Start Time Stop Time Status Last Admin Dose Admin Acetaminophen (Tylenol) 650 mg Q4H PRN ORAL FEVER 06/05/17 15:30 07/05/17 15:29 Albuterol/ Ipratropium (Albuterol/ Ipratropium) 3 ml Q4H PRN HHN Shortness of Breath 06/05/17 15:30 06/10/17 15:29 Amlodipine Besylate (Norvasc) 5 mg DAILY ORAL 06/06/17 09:00 07/06/17 08:59 06/06/17 09:44 Atorvastatin Calcium (Lipitor) 10 mg BEDTIME ORAL 06/05/17 21:00 07/05/17 20:59 06/05/17 20:45 Carvedilol (Coreg) 25 mg EVERY 12 HOURS ORAL 06/05/17 21:00 07/05/17 20:59 06/06/17 09:44 Clopidogrel Bisulfate (Plavix) 75 mg DAILY ORAL 06/06/17 09:00 07/06/17 08:59 06/06/17 09:25 Digoxin (Lanoxin) 0.125 mg DAILY ORAL 06/06/17 09:00 07/06/17 08:59 06/06/17 09:25 Diltiazem HCl (Cardizem) 10 mg Q1H PRN IV heart rate more than 120, 06/05/17 15:30 07/05/17 15:29 Enalaprilat (Vasotec) 2.5 mg Q6H PRN IV sbp more than 160 06/05/17 15:30 07/05/17 15:29 Furosemide (Lasix) 40 mg EVERY 12 HOURS IV 06/05/17 21:00 07/05/17 20:59 06/06/17 09:24 Heparin Sodium (Porcine) (Heparin 5000 units/ml) 5,000 units EVERY 12 HOURS SUBQ 06/05/17 21:00 07/05/17 20:59 Lisinopril (Zestril) 10 mg DAILY ORAL 06/05/17 18:00 07/05/17 17:59 06/06/17 09:43 Morphine Sulfate (Morphine Sulfate) 4 mg Q4H PRN IVP For Pain 06/05/17 19:15 06/12/17 19:14 06/06/17 13:26 Nitroglycerin (Ntg) 0.4 mg Every 5 Minutes PRN SL Prn Chest Pain 06/05/17 15:30 07/05/17 15:29 Ondansetron HCl (Zofran) 4 mg Q6H PRN IVP Nausea & Vomiting 06/05/17 15:30 07/05/17 15:29 06/06/17 09:24 Polyethylene Glycol (Miralax) 17 gm DAILYPRN PRN ORAL Constipation 06/05/17 15:30 07/05/17 15:29 Prednisone (predniSONE) 50 mg DAILY ORAL 06/06/17 09:00 07/06/17 08:59 06/06/17 09:58 Temazepam (Restoril) 15 mg HSPRN PRN ORAL Insomnia 06/05/17 15:30 06/12/17 15:29 BRENDA GRANGER Jun 06, 2017 14:45
[2017-06-06 16:00] VITALS: BP 149/76
--- NOTE | 2017-06-06 16:19 | Diagnostic Imaging Report ---
Indication: Fracture 4 weeks ago Technique: 2 views of the left tibia and fibula Comparison: none Findings: Overlying plaster splint slightly obscures bony detail There is a comminuted minimally displaced fracture of the proximal tibial diaphysis. Mean fracture line is obliquely oriented. There is minimal angulation. There is also a nondisplaced fibular neck fracture. No radiopaque foreign body demonstrated Impression: Proximal tibial and fibular fractures in splint, as described. Recommend comparison with earlier outside radiographs if possible
--- NOTE | 2017-06-06 16:20 | Diagnostic Imaging Report ---
Indication: Fracture 4 weeks ago Technique: 3 views of the left ankle Comparison: none Findings: No acute fractures. No dislocations. Joint spaces are preserved. Proximal tibial and fibular fractures are excluded from the imaging volume. There is a partially overlying splint which may obscure some bony detail. Impression: No acute process
[2017-06-06 20:00] VITALS: BP 151/81
--- NOTE | 2017-06-06 20:21 | Cardiology Progress Note ---
Assessment/Plan Assessment/Plan 1. Congestive heart failure, acute systolic. 2. Cardiomyopathy. 3. History of intracardiac defibrillator implantation. 4. Medication nonadherence. 5. History of renal insufficiency. 6. Hyperlipidemia. 7. Obesity. 8. History of asthma. 9. atypical cp better has cp perfusion imaging tomorrow home soon dig level ok dc iv lasix start po lasix cr increased need to get 30 day supply of meds priro to dc home Subjective Cardiovascular: Reports: chest pain - sharp pain under the breast , Denies: lightheadedness Respiratory: Denies: shortness of breath Gastrointestinal/Abdominal: Denies: abdominal pain Genitourinary: Denies: burning Objective Last 24 Hour Vital Signs Date Time Temp Pulse Resp B/P (MAP) Pulse Ox O2 Delivery O2 Flow Rate FiO2 06/06/17 18:38 64 18 Room Air 06/06/17 16:00 97.7 64 18 149/76 96 Room Air 06/06/17 16:00 65 06/06/17 12:00 60 06/06/17 12:00 97.7 60 20 113/62 97 Room Air 06/06/17 09:44 65 126/67 06/06/17 09:44 65 126/67 06/06/17 09:43 126/67 06/06/17 09:25 68 06/06/17 08:00 97.9 65 20 126/67 97 Room Air 06/06/17 08:00 67 06/06/17 07:48 68 16 Room Air 06/06/17 04:00 98.1 64 20 126/61 Room Air 06/06/17 04:00 64 06/06/17 00:00 59 06/06/17 00:00 98.6 63 20 112/54 100 Room Air 06/05/17 20:47 6 132/62 General Appearance: alert Neck: supple Cardiovascular: normal rate, regular rhythm Respiratory/Chest: lungs clear, normal breath sounds Abdomen: normal bowel sounds, non tender, soft Extremities: no swelling Intake and Output 06/06/17 06/07/17 19:00 07:00 Intake Total 800 ml Balance 800 ml Intake Oral 800 ml Laboratory Tests Test 06/06/17 08:50 06/06/17 15:45 White Blood Count 5.9 K/UL (4.8-10.8) Red Blood Count 4.02 M/UL (4.20-5.40) L Hemoglobin 10.9 G/DL (12.0-16.0) L Hematocrit 34.4 % (37.0-47.0) L Mean Corpuscular Volume 86 FL (80-99) Mean Corpuscular Hemoglobin 27.2 PG (27.0-31.0) Mean Corpuscular Hemoglobin Concent 31.8 G/DL (32.0-36.0) L Red Cell Distribution Width 17.7 % (11.6-14.8) H Platelet Count 217 K/UL (150-450) Mean Platelet Volume 7.9 FL (6.5-10.1) Neutrophils (%) (Auto) 58.7 % (45.0-75.0) Lymphocytes (%) (Auto) 23.3 % (20.0-45.0) Monocytes (%) (Auto) 11.7 % (1.0-10.0) H Eosinophils (%) (Auto) 5.2 % (0.0-3.0) H Basophils (%) (Auto) 1.1 % (0.0-2.0) Prothrombin Time 10.2 SEC (9.30-11.50) Prothromb Time International Ratio 1.0 (0.9-1.1) Activated Partial Thromboplast Time 26 SEC (23-33) Sodium Level 141 MMOL/L (136-145) Potassium Level 3.9 MMOL/L (3.5-5.1) Chloride Level 105 MMOL/L (98-107) Carbon Dioxide Level 27 MMOL/L (21-32) Anion Gap 9 mmol/L (5-15) Blood Urea Nitrogen 30 mg/dL (7-18) H Creatinine 1.7 MG/DL (0.55-1.30) H Estimat Glomerular Filtration Rate 37.8 mL/min (>60) Glucose Level 91 MG/DL (74-106) Calcium Level 9.2 MG/DL (8.5-10.1) Troponin I 0.047 ng/mL (0.000-0.056) 0.043 ng/mL (0.000-0.056) C-Reactive Protein, Quantitative 1.3 mg/dL (0.00-0.90) H Pro-B-Type Natriuretic Peptide 1407 pg/mL (0-125) H Triglycerides Level 86 MG/DL (0-200) Cholesterol Level 173 MG/DL (< 200) LDL Cholesterol 85 mg/dL (<100) HDL Cholesterol 68 MG/DL (40-60) H Cholesterol/HDL Ratio 2.5 (3.3-4.4) L Thyroid Stimulating Hormone (TSH) 1.199 uiU/mL (0.360-3.740) Free Thyroxine 1.19 NG/DL (0.10-1.46) Digoxin Level 0.7 NG/ML (0.9-2.0) L JAQUELINE BARRAZA Jun 06, 2017 20:21
[2017-06-07] VITALS: BP 153/77
[2017-06-07] MEDS: Morphine Sulfate 4mg/ml Inj IVP PRN ×5 (02:58→22:46)
[2017-06-07 04:51] VITALS: BP 145/82
--- NOTE | 2017-06-07 08:11 | Pulmonology Progress Note ---
Assessment/Plan Assessment/Plan ASSESSMENT atypical chest pain acute systolic heart failure Cardiomyopathy Status post Medtronic biventricular defibrillator implantation. Hyperlipidemia LBBB moderate pulmonary HTN moderate MR and Tr Asthma/COPD slurred speech ? TIA CRI Obesity Noncompliance with medication regimen Proximal tibial and fibular fractures left LE PLAN OF CARE Tele cardio and mail manager follow First two troponin with minimal elevation, last normal ECG no acute ischemic changes, + LBBB patient was ruled out for acute [place] chest pain atypical as per cardio Interrogation of AICD showed normal functioning ECHO with EDF 25-30% and RVSP of 47 c/w moderate pulmonary HTN, moderate MR and moderate TR pain management with Morphine and Nitro prn Medical management of SCHF with diuretic, Digoxin, BB and REJI monitor renal parameters, lytes, avoid nephrotoxic Lasix dc due to rise in creat, creat same consider renal US if no improvement in creatinine dc prednisone O2 HHN prn respiratory status stable, no signs of respiratory distress /asthma exacerbation BP management with CCB, BB, REJI and diuretic- stable Lasix changed to po creat remains elevated-1.7 avoid necrotoxic lipid panel WNL , continue statin digoxin elvel WNL continue Plavix Fluid restriction fup with pro BNP and 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 TIA X ray left tibia /fibula with Proximal tibial and fibular fractures in splint , pain management dc plan case discussed and evaluated by supervising physician Subjective Allergies: Coded Allergies: ASPIRIN (Unverified Allergy, Unknown, 10/13/14) PENICILLINS (Unverified Allergy, Unknown, 10/13/14) Subjective still with intermittent chest pain stress test cancelled since patietn was noncompliant with no caffeine order and was drinlking soda Objective Last 24 Hour Vital Signs Date Time Temp Pulse Resp B/P (MAP) Pulse Ox O2 Delivery O2 Flow Rate FiO2 06/07/17 06:48 67 18 Nasal Cannula 2.0 06/07/17 06:48 95 Nasal Cannula 2.0 28 06/07/17 06:48 Nasal Cannula 2.0 28 06/07/17 04:51 96.8 65 20 145/82 97 Nasal Cannula 2.0 06/07/17 04:00 55 06/07/17 03:36 Nasal Cannula 2.0 28 06/07/17 03:36 96 Nasal Cannula 2.0 28 06/07/17 00:30 56 18 92 Room Air 06/07/17 00:00 55 06/07/17 00:00 96.6 54 20 153/77 94 Room Air 06/06/17 21:40 71 151/81 06/06/17 20:00 63 06/06/17 20:00 97.3 71 20 151/81 94 Room Air 06/06/17 18:38 64 18 Room Air 06/06/17 16:00 97.7 64 18 149/76 96 Room Air 06/06/17 16:00 65 06/06/17 12:00 60 06/06/17 12:00 97.7 60 20 113/62 97 Room Air 06/06/17 09:44 65 126/67 06/06/17 09:44 65 126/67 06/06/17 09:43 126/67 06/06/17 09:25 68 General Appearance: no acute distress HEENT: normocephalic, atraumatic, anicteric, mucous membranes moist Respiratory/Chest: lungs clear, normal breath sounds, no respiratory distress Cardiovascular: normal rate, regular rhythm, no JVD Abdomen: normal bowel sounds, soft, non tender, non distended Genitourinary: normal external genitalia Extremities: no edema, other Neurologic/Psychiatric: alert, oriented x 3, responsive Musculoskeletal: other - L leg with short splint, NV intact Laboratory Tests 06/06/17 08:50: White Blood Count 5.9, Red Blood Count 4.02L, Hemoglobin 10.9L, Hematocrit 34.4L , Mean Corpuscular Volume 86, Mean Corpuscular Hemoglobin 27.2, Mean Corpuscular Hemoglobin Concent 31.8L, Red Cell Distribution Width 17.7H, Platelet Count 217, Mean Platelet Volume 7.9, Neutrophils (%) (Auto) 58.7, Lymphocytes (%) (Auto) 23.3, Monocytes (%) (Auto) 11.7H, Eosinophils (%) (Auto) 5.2H, Basophils (%) (Auto) 1.1, Prothrombin Time 10.2, Prothromb Time International Ratio 1.0, Activated Partial Thromboplast Time 26, Sodium Level 141, Potassium Level 3.9, Chloride Level 105, Carbon Dioxide Level 27, Anion Gap 9, Blood Urea Nitrogen 30H, Creatinine 1.7H, Estimat Glomerular Filtration Rate 37.8, Glucose Level 91, Calcium Level 9.2, Troponin I 0.047, C-Reactive Protein, Quantitative 1.3H, Pro-B-Type Natriuretic Peptide 1407H, Triglycerides Level 86, Cholesterol Level 173, LDL Cholesterol 85, HDL Cholesterol 68H, Cholesterol/HDL Ratio 2.5L, Thyroid Stimulating Hormone (TSH) 1.199, Free Thyroxine 1.19, Digoxin Level 0.7L 06/06/17 15:45: Troponin I 0.043 Current Medications Medications (Trade) Dose Ordered Sig/Dino Route PRN Reason Start Time Stop Time Status Last Admin Dose Admin Acetaminophen (Tylenol) 650 mg Q4H PRN ORAL FEVER 06/05/17 15:30 07/05/17 15:29 Albuterol/ Ipratropium (Albuterol/ Ipratropium) 3 ml Q4H PRN HHN Shortness of Breath 06/05/17 15:30 06/10/17 15:29 06/07/17 00:27 Amlodipine Besylate (Norvasc) 5 mg DAILY ORAL 06/06/17 09:00 07/06/17 08:59 06/06/17 09:44 Atorvastatin Calcium (Lipitor) 10 mg BEDTIME ORAL 06/05/17 21:00 07/05/17 20:59 06/05/17 20:45 Carvedilol (Coreg) 25 mg EVERY 12 HOURS ORAL 06/05/17 21:00 07/05/17 20:59 06/06/17 09:44 Clopidogrel Bisulfate (Plavix) 75 mg DAILY ORAL 06/06/17 09:00 07/06/17 08:59 06/06/17 09:25 Digoxin (Lanoxin) 0.125 mg DAILY ORAL 06/06/17 09:00 07/06/17 08:59 06/06/17 09:25 Diltiazem HCl (Cardizem) 10 mg Q1H PRN IV heart rate more than 120, 06/05/17 15:30 07/05/17 15:29 Enalaprilat (Vasotec) 2.5 mg Q6H PRN IV sbp more than 160 06/05/17 15:30 07/05/17 15:29 Heparin Sodium (Porcine) (Heparin 5000 units/ml) 5,000 units EVERY 12 HOURS SUBQ 06/05/17 21:00 07/05/17 20:59 Lisinopril (Zestril) 10 mg DAILY ORAL 06/05/17 18:00 07/05/17 17:59 06/06/17 09:43 Morphine Sulfate (Morphine Sulfate) 4 mg Q4H PRN IVP For Pain 06/05/17 19:15 06/12/17 19:14 06/07/17 02:58 Nitroglycerin (Ntg) 0.4 mg Every 5 Minutes PRN SL Prn Chest Pain 06/05/17 15:30 07/05/17 15:29 Ondansetron HCl (Zofran) 4 mg Q6H PRN IVP Nausea & Vomiting 06/05/17 15:30 07/05/17 15:29 06/07/17 02:58 Polyethylene Glycol (Miralax) 17 gm DAILYPRN PRN ORAL Constipation 06/05/17 15:30 07/05/17 15:29 Prednisone (predniSONE) 50 mg DAILY ORAL 06/06/17 09:00 07/06/17 08:59 06/06/17 09:58 Temazepam (Restoril) 15 mg HSPRN PRN ORAL Insomnia 06/05/17 15:30 06/12/17 15:29 [facility]aly[facility]St[facility] HospitalSia Choi NP Jun 07, 2017 08:11
[2017-06-07] MEDS: Digoxin 0.125mg tab ORAL SCH (08:13)
[2017-06-07] MEDS: Lisinopril 10mg tab ORAL SCH (08:14)
[2017-06-07] MEDS: Heparin 5000 units/ml inj SUBQ SCH ×3 (08:16→22:48)
[2017-06-07 08:54] VITALS: BP 114/62
[2017-06-07 10:26] LABS: ANION GAP 10 mmol/L (5-15); BLOOD UREA NITROGEN 38 mg/dL (7-18); CALCIUM 9.8 MG/DL (8.5-10.1); CARBON DIOXIDE 28 MMOL/L (21-32); CHLORIDE 107 MMOL/L (98-107); CREATININE 1.7 MG/DL (0.55-1.30); POTASSIUM 4.3 MMOL/L (3.5-5.1); SODIUM 145 MMOL/L (136-145)
[2017-06-07 11:48] VITALS: BP 137/71
--- NOTE | 2017-06-07 12:03 | Cardiac Electrophysiology PN ---
Assessment/Plan Assessment/Plan 1. Status post Medtronic biventricular defibrillator implantation. Interrogated the ICD and showed Nl EF. 2. Chest pain. The pain is nonspecific. EKG shows left bundle-branch block and is not helpful. Rule out for myocardial infarction Echocardiogram showed EF 25%. Management per Dr Parada 3. Hyperlipidemia. 4. Chronic kidney disease. 5. Chronic obstructive pulmonary disease and asthma. Further evaluation by Dr. Ko. Subjective Subjective Asking for Dilaudid for back pain and leg pain. No arrhythmias on tele.Her Medtronic BIV ICD was interrogated and showed Nl Fx. Objective Last 24 Hour Vital Signs Date Time Temp Pulse Resp B/P (MAP) Pulse Ox O2 Delivery O2 Flow Rate FiO2 06/07/17 11:48 96.8 59 20 137/71 99 Room Air 06/07/17 08:54 97.4 63 20 114/62 94 Room Air 06/07/17 08:14 114/62 06/07/17 08:14 63 114/62 06/07/17 08:13 63 06/07/17 08:00 55 06/07/17 06:48 67 18 Nasal Cannula 2.0 28 06/07/17 06:48 95 Nasal Cannula 2.0 28 06/07/17 06:48 Nasal Cannula 2.0 28 06/07/17 04:51 96.8 65 20 145/82 97 Nasal Cannula 2.0 06/07/17 04:00 55 06/07/17 03:36 Nasal Cannula 2.0 28 06/07/17 03:36 96 Nasal Cannula 2.0 28 06/07/17 00:30 56 18 92 Room Air 06/07/17 00:00 55 06/07/17 00:00 96.6 54 20 153/77 94 Room Air 06/06/17 21:40 71 151/81 06/06/17 20:00 63 06/06/17 20:00 97.3 71 20 151/81 94 Room Air 06/06/17 18:38 64 18 Room Air 06/06/17 16:00 97.7 64 18 149/76 96 Room Air 06/06/17 16:00 65 06/06/17 12:00 60 06/06/17 12:00 97.7 60 20 113/62 97 Room Air Intake and Output 06/07/17 06/08/17 19:00 07:00 Intake Total 350 ml Balance 350 ml Intake Oral 350 ml # Voids 1 # Bowel Movements 1 Laboratory Tests Test 06/06/17 15:45 06/07/17 09:15 Troponin I 0.043 ng/mL (0.000-0.056) 0.041 ng/mL (0.000-0.056) Sodium Level 145 MMOL/L (136-145) Potassium Level 4.3 MMOL/L (3.5-5.1) Chloride Level 107 MMOL/L (98-107) Carbon Dioxide Level 28 MMOL/L (21-32) Anion Gap 10 mmol/L (5-15) Blood Urea Nitrogen 38 mg/dL (7-18) H Creatinine 1.7 MG/DL (0.55-1.30) H Estimat Glomerular Filtration Rate 37.8 mL/min (>60) Glucose Level 90 MG/DL (74-106) Calcium Level 9.8 MG/DL (8.5-10.1) Pro-B-Type Natriuretic Peptide 4035 pg/mL (0-125) H Objective HEAD AND NECK: Mild JVD. LUNGS: Decreased breath sounds. CARDIOVASCULAR: Shows regular S1 and S2 with no gallop or murmur. ICD in left subclavian intact. ABDOMEN: Soft. EXTREMITIES: There is no pitting edema. The left leg has a fracture. JADE GAYLE Jun 07, 2017 12:03
--- NOTE | 2017-06-07 13:31 | Cardiology Report ---
APPROVED REPORT EKG Measurement Heart [id number] Sinus rhythm with 1st degree AV block Left axis deviation Left bundle branch block Abnormal ECG
--- NOTE | 2017-06-07 13:31 | Cardiology Report ---
APPROVED REPORT EKG Measurement Heart [id number] Sinus rhythm with 1st degree AV block Left axis deviation Left bundle branch block Abnormal ECG
--- NOTE | 2017-06-07 13:31 | Cardiology Report ---
APPROVED REPORT EKG Measurement Heart [id number] [place] [id number] [id number] Sinus rhythm with 1st degree AV block Left axis deviation Left bundle branch block Abnormal ECG
--- NOTE | 2017-06-07 13:56 | Cardiology Report ---
APPROVED REPORT EXAM: Two-dimensional and M-mode echocardiogram with Doppler and color Doppler. INDICATION Congestive Heart Failure M-Mode DIMENSIONS IVSd1 (0.7-1.1cm)Left Atrium (MM)3.3 (1.6-4.0cm) LVDd6.2 (3.5-5.6cm)Aortic Root3.6 (2.0-3.7cm) PWd2.8 (0.7-1.1cm)Aortic Cusp Exc.1.9 (1.5-2.0cm) LVDs5.5 (2.5-4.0cm) PWs3 cm Left ventricular enlargement Global LV hypokinesis. Anteroseptal, mid to distal inferoseptal, anterior wall and apical akinesis Left ventricular ejection fraction estimated to be 25-30 %. Mild left ventricular hypertrophy. Small posterior pericardial effusion. Moderate left atrial enlargement. Right atrial size at upper limits of normal. Right ventricular chamber size is within normal limits. Focal aortic valve sclerosis with adequate cusp excursion. Thickened mitral valve leaflets with normal excursion. Mitral annulus and aortic root calcification. Pulmonic valve not well visualized. Normal tricuspid valve structure. IVC measured at 2.0 cm with physiologic collapse. Pacemaker wire present in the right side chambers. A color flow and spectral Doppler study was performed and revealed: Moderate mitral regurgitation. Mitral diastolic velocities suggest reduced left ventricular relaxation c/w mild LV diastolic dysfunction (Grade I). Moderate tricuspid regurgitation. Tricuspid systolic velocities suggests peak right ventricular systolic pressure of 47 mmHg, consistent with moderate pulmonary hypertension.
[2017-06-07 16:27] VITALS: BP 133/65
--- NOTE | 2017-06-07 17:58 | Cardiology Progress Note ---
Assessment/Plan Assessment/Plan 1. Congestive heart failure, acute systolic. 2. Cardiomyopathy. 3. History of intracardiac defibrillator implantation. 4. Medication nonadherence. 5. History of renal insufficiency. 6. Hyperlipidemia. 7. Obesity. 8. History of asthma. 9. atypical cp perfusion imaging could not be performed as inpt as pt took in caffeine desptie being told not to do so out pt stress test with his pmd ok to dc home dig level ok now on po lasix cr increased need to get 30 day supply of meds priro to dc home Subjective Cardiovascular: Denies: chest pain Respiratory: Denies: shortness of breath Gastrointestinal/Abdominal: Denies: abdominal pain Genitourinary: Denies: burning Objective Last 24 Hour Vital Signs Date Time Temp Pulse Resp B/P (MAP) Pulse Ox O2 Delivery O2 Flow Rate FiO2 06/07/17 16:27 98.6 65 20 133/65 99 Room Air 06/07/17 12:00 55 06/07/17 11:48 96.8 59 20 137/71 99 Room Air 06/07/17 08:54 97.4 63 20 114/62 94 Room Air 06/07/17 08:14 114/62 06/07/17 08:14 63 114/62 06/07/17 08:13 63 06/07/17 08:00 55 06/07/17 06:48 67 18 Nasal Cannula 2.0 28 06/07/17 06:48 95 Nasal Cannula 2.0 28 06/07/17 06:48 Nasal Cannula 2.0 28 06/07/17 04:51 96.8 65 20 145/82 97 Nasal Cannula 2.0 06/07/17 04:00 55 06/07/17 03:36 Nasal Cannula 2.0 28 06/07/17 03:36 96 Nasal Cannula 2.0 28 06/07/17 00:30 56 18 92 Room Air 06/07/17 00:00 55 06/07/17 00:00 96.6 54 20 153/77 94 Room Air 06/06/17 21:40 71 151/81 06/06/17 20:00 63 06/06/17 20:00 97.3 71 20 151/81 94 Room Air 06/06/17 18:38 64 18 Room Air General Appearance: no apparent distress, alert Neck: no JVD Cardiovascular: normal rate, regular rhythm Respiratory/Chest: lungs clear, normal breath sounds Abdomen: normal bowel sounds, non tender, soft Extremities: no swelling Intake and Output 06/07/17 06/08/17 19:00 07:00 Intake Total 700 ml Balance 700 ml Intake Oral 700 ml # Voids 6 # Bowel Movements 3 Laboratory Tests Test 06/07/17 09:15 Sodium Level 145 MMOL/L (136-145) Potassium Level 4.3 MMOL/L (3.5-5.1) Chloride Level 107 MMOL/L (98-107) Carbon Dioxide Level 28 MMOL/L (21-32) Anion Gap 10 mmol/L (5-15) Blood Urea Nitrogen 38 mg/dL (7-18) H Creatinine 1.7 MG/DL (0.55-1.30) H Estimat Glomerular Filtration Rate 37.8 mL/min (>60) Glucose Level 90 MG/DL (74-106) Calcium Level 9.8 MG/DL (8.5-10.1) Troponin I 0.041 ng/mL (0.000-0.056) Pro-B-Type Natriuretic Peptide 4035 pg/mL (0-125) H JAQUELINE BARRAZA Jun 07, 2017 17:58
[2017-06-07 20:00] VITALS: BP 144/66
[2017-06-07] MEDS ORDERED: ALPRAZolam 0.25mg tab ORAL PRN (21:00)
[2017-06-07] MEDS ORDERED: Acetaminophen 500mg (ES) tab ORAL PRN (21:00)
[2017-06-07] MEDS ORDERED: Ipratropium 0.02% Inh Soln 2.5ml UD HHN PRN (21:00)
[2017-06-07] MEDS ORDERED: Albuterol/Ipratropium 3ml neb HHN PRN (21:00)
[2017-06-07] MEDS ORDERED: Norco 10mg/325mg tab ORAL PRN (21:00)
[2017-06-07] MEDS ORDERED: Amiodarone 200mg tab ORAL SCH (21:00)
[2017-06-07] MEDS ORDERED: Nitroglycerin Subl 0.4mg tab SL PRN (21:00)
[2017-06-07] MEDS ORDERED: dilTIAZem HCl 25mg/5ml Inj IV PRN (21:30)
[2017-06-07] MEDS ORDERED: Enalaprilat 2.5mg/2ml Inj IV PRN (21:30)
[2017-06-07] MEDS ORDERED: Miralax 17gm pkt ORAL PRN (21:30)
[2017-06-07] MEDS: Carvedilol 25mg Tab ORAL SCH (22:00)
[2017-06-08] VITALS (7 sets, daily range): BP systolic 130–152; BP diastolic 61–86
[2017-06-08] MEDS: Morphine Sulfate 4mg/ml Inj IVP PRN ×3 (03:21→17:46)
[2017-06-08] MEDS: Digoxin 0.125mg tab ORAL SCH (08:07)
[2017-06-08] MEDS: Carvedilol 25mg Tab ORAL SCH ×2 (08:08→20:32)
[2017-06-08] MEDS: Lisinopril 10mg tab ORAL SCH (08:08)
[2017-06-08] MEDS: Heparin 5000 units/ml inj SUBQ SCH ×2 (08:09→20:33)
--- NOTE | 2017-06-08 08:46 | Pulmonology Progress Note ---
Assessment/Plan Assessment/Plan ASSESSMENT atypical chest pain acute systolic heart failure Cardiomyopathy Status post Medtronic biventricular defibrillator implantation. Hyperlipidemia LBBB moderate pulmonary HTN moderate MR and Tr Asthma/COPD slurred speech ? 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 First two troponin with minimal elevation, last normal ECG no acute ischemic changes, + LBBB patient was ruled out for acute [place] chest pain atypical as per cardio Interrogation of AICD showed normal functioning ECHO with EF 25-30% and RVSP of 47 c/w moderate pulmonary HTN, moderate MR and moderate TR pain management with Morphine and Nitro prn Medical management of SCHF with diuretic, Digoxin, BB and REJI monitor renal parameters, lytes, avoid nephrotoxic Lasix po renal US off prednisone O2 HHN prn respiratory status stable, no signs of respiratory distress /asthma exacerbation BP management with CCB, BB, REJI and diuretic- stable Lasix changed to po avoid necrotoxic lipid panel WNL , continue statin digoxin elvel WNL continue Plavix Fluid restriction fup with pro BNP and CXR baby counselor on compliance with medication regimen, fluid restriction DVT prophylaxis CT head no acute intracranial pathology , ? TIA X ray left tibia /fibula with Proximal tibial and fibular fractures in splint , pain management cardio cleared for dc dc today to SNF patient is unable to return home at this time due to Proximal tibial and fibular fractures left LE ( lives upstairs, has stairs, unable to use) patient came form [facility] rehab, reluctant to return to this facility and prefer another one ( had issues with family visitations) case discussed and evaluated by supervising physician Subjective Allergies: Coded Allergies: ASPIRIN (Unverified Allergy, Unknown, 10/13/14) PENICILLINS (Unverified Allergy, Unknown, 10/13/14) Subjective stress test cancelled since patient was noncompliant with no caffeine order and was drinking soda Objective Last 24 Hour Vital Signs Date Time Temp Pulse Resp B/P (MAP) Pulse Ox O2 Delivery O2 Flow Rate FiO2 06/08/17 08:36 97.5 06/08/17 08:08 152/82 06/08/17 08:08 58 152/82 06/08/17 08:08 58 152/82 06/08/17 08:07 58 06/08/17 08:03 97.5 58 20 152/82 98 Room Air 06/08/17 07:54 Room Air 21 06/08/17 07:54 98 Room Air 06/08/17 07:54 63 16 Room Air 06/08/17 04:00 98.1 65 18 141/74 97 Room Air 06/08/17 00:00 97.5 66 19 150/77 99 Room Air 06/07/17 22:00 55 144/66 06/07/17 20:20 96 Room Air 06/07/17 20:20 Room Air 21 06/07/17 20:19 55 18 Room Air 06/07/17 20:00 97.5 56 19 144/66 97 Room Air 06/07/17 16:27 98.6 65 20 133/65 99 Room Air 06/07/17 16:00 56 06/07/17 12:00 55 06/07/17 11:48 96.8 59 20 137/71 99 Room Air 06/07/17 08:54 97.4 63 20 114/62 94 Room Air Objective General Appearance: no acute distress HEENT: normocephalic, atraumatic, anicteric, mucous membranes moist Respiratory/Chest: lungs clear, normal breath sounds, no respiratory distress Cardiovascular: normal rate, regular rhythm, no JVD Abdomen: normal bowel sounds, soft, non tender, non distended Genitourinary: normal external genitalia Extremities: no edema, other Neurologic/Psychiatric: alert, oriented x 3, responsive Musculoskeletal: L leg with short splint, NV intact Laboratory Tests 06/07/17 09:15: Sodium Level 145, Potassium Level 4.3, Chloride Level 107, Carbon Dioxide Level 28, Anion Gap 10, Blood Urea Nitrogen 38H, Creatinine 1.7H, Estimat Glomerular Filtration Rate 37.8, Glucose Level 90, Calcium Level 9.8, Troponin I 0.041, Pro -B-Type Natriuretic Peptide 4035H Current Medications Medications (Trade) Dose Ordered Sig/Dino Route PRN Reason Start Time Stop Time Status Last Admin Dose Admin Acetaminophen (Tylenol) 650 mg Q4H PRN ORAL FEVER (temp > 100.5 F) 06/07/17 21:00 07/05/17 20:59 Albuterol/ Ipratropium (Albuterol/ Ipratropium) 3 ml Q4H PRN HHN Shortness of Breath 06/07/17 21:00 06/10/17 20:59 Amlodipine Besylate (Norvasc) 5 mg DAILY ORAL 06/08/17 09:00 07/06/17 08:59 06/08/17 08:08 Atorvastatin Calcium (Lipitor) 10 mg BEDTIME ORAL 06/07/17 22:00 07/05/17 21:59 06/07/17 22:46 Carvedilol (Coreg) 25 mg EVERY 12 HOURS ORAL 06/07/17 22:00 07/05/17 21:59 06/08/17 08:08 Clopidogrel Bisulfate (Plavix) 75 mg DAILY ORAL 06/08/17 09:00 07/06/17 08:59 06/08/17 08:08 Digoxin (Lanoxin) 0.125 mg DAILY ORAL 06/08/17 09:00 07/06/17 08:59 Enalaprilat (Vasotec) 2.5 mg Q6H PRN IV sbp more than 160 06/07/17 21:30 07/05/17 15:29 Heparin Sodium (Porcine) (Heparin 5000 units/ml) 5,000 units EVERY 12 HOURS SUBQ 06/07/17 22:00 07/05/17 21:59 Lisinopril (Zestril) 10 mg DAILY ORAL 06/08/17 09:00 07/05/17 17:59 06/08/17 08:08 Morphine Sulfate (Morphine Sulfate) 4 mg Q4H PRN IVP For Pain 06/07/17 22:30 06/12/17 22:29 06/08/17 08:06 Nitroglycerin (Ntg) 0.4 mg Every 5 Minutes PRN SL Prn Chest Pain 06/07/17 21:00 07/05/17 15:29 Ondansetron HCl (Zofran) 4 mg Q6H PRN IVP Nausea & Vomiting 06/08/17 00:30 07/08/17 00:29 06/08/17 03:21 Polyethylene Glycol (Miralax) 17 gm DAILYPRN PRN ORAL Constipation 06/07/17 21:30 07/07/17 21:29 Temazepam (Restoril) 15 mg HSPRN PRN ORAL Insomnia 06/07/17 21:00 06/14/17 20:59 Sia Biggs NP (Vanchtein) Jun 08, 2017 08:46
[2017-06-08] MEDS ORDERED: LISINOPRIL10 MG ORAL (08:50)
[2017-06-08] MEDS ORDERED: Lisinopril 2.5mg tab ORAL SCH (09:00)
--- NOTE | 2017-06-08 17:33 | Cardiac Electrophysiology PN ---
Assessment/Plan Assessment/Plan 1. Status post Medtronic biventricular defibrillator implantation that was Interrogated and showed Nl EF. 2. Chest pain, nonspecific. EKG shows left bundle-branch block and is not helpful. Rule out for myocardial infarction Echocardiogram showed EF 25%. Management per Dr Parada 3. CHF with Ef 25%. Dog, Coreg Lisinopril 4. Chronic kidney disease. 5. Chronic obstructive pulmonary disease and asthma. Subjective Subjective Asking for Dilaudid. Transferred off tele Objective Last 24 Hour Vital Signs Date Time Temp Pulse Resp B/P (MAP) Pulse Ox O2 Delivery O2 Flow Rate FiO2 06/08/17 16:00 97.3 55 20 140/67 92 Room Air 06/08/17 11:51 95.9 56 20 135/86 96 Room Air 06/08/17 08:36 97.5 06/08/17 08:08 152/82 06/08/17 08:08 58 152/82 06/08/17 08:08 58 152/82 06/08/17 08:07 58 06/08/17 08:03 97.5 58 20 152/82 98 Room Air 06/08/17 07:54 Room Air 21 06/08/17 07:54 98 Room Air 21 06/08/17 07:54 63 16 Room Air 21 06/08/17 04:00 98.1 65 18 141/74 97 Room Air 06/08/17 00:00 97.5 66 19 150/77 99 Room Air 06/07/17 22:00 55 144/66 06/07/17 20:20 96 Room Air 21 06/07/17 20:20 Room Air 21 06/07/17 20:19 55 18 Room Air 06/07/17 20:00 97.5 56 19 144/66 97 Room Air Intake and Output 06/08/17 06/09/17 19:00 07:00 Intake Total 1200 ml Balance 1200 ml Intake Oral 1200 ml # Voids 3 # Bowel Movements 1 Objective HEAD AND NECK: Mild JVD. LUNGS: Decreased breath sounds. CARDIOVASCULAR: Shows regular S1 and S2 with no gallop or murmur. ICD in left subclavian intact. ABDOMEN: Soft. EXTREMITIES: There is no pitting edema. The left leg has a fracture. JADE GAYLE Jun 08, 2017 17:33
[2017-06-09] MEDS: Morphine Sulfate 4mg/ml Inj IVP PRN ×5 (01:48→22:37)
[2017-06-09 04:00] VITALS: BP 129/69
[2017-06-09 08:00] VITALS: BP 134/64
[2017-06-09] MEDS: Lisinopril 10mg tab ORAL SCH (08:43)
[2017-06-09] MEDS: Digoxin 0.125mg tab ORAL SCH (08:43)
[2017-06-09] MEDS: Carvedilol 25mg Tab ORAL SCH ×2 (08:43→22:38)
[2017-06-09] MEDS: Heparin 5000 units/ml inj SUBQ SCH ×2 (08:44→21:00)
--- NOTE | 2017-06-09 11:31 | Pulmonology Progress Note ---
Assessment/Plan Assessment/Plan ASSESSMENT atypical chest pain acute systolic heart failure Cardiomyopathy Status post Medtronic biventricular defibrillator implantation. Hyperlipidemia LBBB moderate pulmonary HTN moderate MR and Tr Asthma/COPD slurred speech ? 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 First two troponin with minimal elevation, last normal ECG no acute ischemic changes, + LBBB patient was ruled out for acute [place] chest pain atypical as per cardio Interrogation of AICD showed normal functioning ECHO with EF 25-30% and RVSP of 47 c/w moderate pulmonary HTN, moderate MR and moderate TR pain management with Morphine and Nitro prn Medical management of SCHF with diuretic, Digoxin, BB and REJI monitor renal parameters, lytes, avoid nephrotoxic Lasix po renal US off prednisone O2 HHN prn respiratory status stable, no signs of respiratory distress /asthma exacerbation BP management with CCB, BB, REJI and diuretic- stable Lasix changed to po avoid necrotoxic lipid panel WNL , continue statin digoxin elvel WNL continue Plavix Fluid restriction fup with pro BNP and CXR counsellors on compliance with medication regimen, fluid restriction DVT prophylaxis CT head no acute intracranial pathology , ? TIA X ray left tibia /fibula with Proximal tibial and fibular fractures in splint , pain management cardio cleared for dc dc today to SNF patient unable to return home at this time due to Proximal tibial and fibular fractures left LE ( lives upstairs, has stairs, unable to use) patient came form [facility] rehab, reluctant to return to this facility and prefer another one ( had issues with family visitations), however if no other facility can be arranged , should dc to [facility] case discussed and evaluated by supervising physician Subjective Allergies: Coded Allergies: ASPIRIN (Unverified Allergy, Unknown, 10/13/14) PENICILLINS (Unverified Allergy, Unknown, 10/13/14) Subjective stress test cancelled since patient was noncompliant with no caffeine order and was drinking soda Objective Last 24 Hour Vital Signs Date Time Temp Pulse Resp B/P (MAP) Pulse Ox O2 Delivery O2 Flow Rate FiO2 06/09/17 08:44 80 134/64 06/09/17 08:43 134/64 06/09/17 08:43 80 06/09/17 08:43 80 134/64 06/09/17 08:00 97.7 80 17 134/64 97 Room Air 06/09/17 07:18 69 16 Room Air 06/09/17 07:18 99 Room Air 06/09/17 07:18 Room Air 06/09/17 04:00 97.0 67 20 129/69 98 Room Air 06/08/17 23:36 97.7 61 19 145/73 96 Room Air 06/08/17 20:32 57 130/61 06/08/17 19:52 97.3 130 59 130/61 97 Room Air 06/08/17 19:15 98 Room Air 21 06/08/17 19:15 Room Air 21 06/08/17 19:15 60 16 Room Air 06/08/17 18:16 97.3 06/08/17 16:00 97.3 55 20 140/67 92 Room Air 06/08/17 11:51 95.9 56 20 135/86 96 Room Air Objective General Appearance: no acute distress HEENT: normocephalic, atraumatic, anicteric, mucous membranes moist Respiratory/Chest: lungs clear, normal breath sounds, no respiratory distress Cardiovascular: normal rate, regular rhythm, no JVD Abdomen: normal bowel sounds, soft, non tender, non distended Genitourinary: normal external genitalia Extremities: no edema, other Neurologic/Psychiatric: alert, oriented x 3, responsive Musculoskeletal: L leg with short splint, NV intact Current Medications Medications (Trade) Dose Ordered Sig/Dino Route PRN Reason Start Time Stop Time Status Last Admin Dose Admin Acetaminophen (Tylenol) 650 mg Q4H PRN ORAL FEVER (temp > 100.5 F) 06/07/17 21:00 07/05/17 20:59 Albuterol/ Ipratropium (Albuterol/ Ipratropium) 3 ml Q4H PRN HHN Shortness of Breath 06/07/17 21:00 06/10/17 20:59 Amlodipine Besylate (Norvasc) 5 mg DAILY ORAL 06/08/17 09:00 07/06/17 08:59 06/09/17 08:44 Atorvastatin Calcium (Lipitor) 10 mg BEDTIME ORAL 06/07/17 22:00 07/05/17 21:59 06/08/17 20:39 Carvedilol (Coreg) 25 mg EVERY 12 HOURS ORAL 06/07/17 22:00 07/05/17 21:59 06/09/17 08:43 Clopidogrel Bisulfate (Plavix) 75 mg DAILY ORAL 06/08/17 09:00 07/06/17 08:59 06/09/17 08:43 Digoxin (Lanoxin) 0.125 mg DAILY ORAL 06/08/17 09:00 07/06/17 08:59 06/09/17 08:43 Enalaprilat (Vasotec) 2.5 mg Q6H PRN IV sbp more than 160 06/07/17 21:30 07/05/17 15:29 Heparin Sodium (Porcine) (Heparin 5000 units/ml) 5,000 units EVERY 12 HOURS SUBQ 06/07/17 22:00 07/05/17 21:59 06/09/17 08:44 Lisinopril (Zestril) 10 mg DAILY ORAL 06/08/17 09:00 07/05/17 17:59 06/09/17 08:43 Morphine Sulfate (Morphine Sulfate) 4 mg Q4H PRN IVP For Pain 06/07/17 22:30 06/12/17 22:29 06/09/17 08:44 Nitroglycerin (Ntg) 0.4 mg Every 5 Minutes PRN SL Prn Chest Pain 06/07/17 21:00 07/05/17 15:29 Ondansetron HCl (Zofran) 4 mg Q6H PRN IVP Nausea & Vomiting 06/08/17 00:30 07/08/17 00:29 06/09/17 08:53 Polyethylene Glycol (Miralax) 17 gm DAILYPRN PRN ORAL Constipation 06/07/17 21:30 07/07/17 21:29 Temazepam (Restoril) 15 mg HSPRN PRN ORAL Insomnia 06/07/17 21:00 06/14/17 20:59 Sia Biggs NP (Vanchtein) Jun 09, 2017 11:31
[2017-06-09 12:00] VITALS: BP 125/65
[2017-06-09 16:00] VITALS: BP 115/65
--- NOTE | 2017-06-09 17:52 | Cardiac Electrophysiology PN ---
Assessment/Plan Assessment/Plan 1. Status post Medtronic biventricular defibrillator implantation that showed Nl EF. 2. Chest pain, nonspecific. EKG shows left bundle-branch block and is not helpful. Rule out for myocardial infarction Echocardiogram showed EF 25%. Management per Dr Parada 3. CHF with Ef 25%. Dog, Coreg Lisinopril 4. Chronic kidney disease. 5. Chronic obstructive pulmonary disease and asthma. 6. 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 Awaiting placement. Objective Last 24 Hour Vital Signs Date Time Temp Pulse Resp B/P (MAP) Pulse Ox O2 Delivery O2 Flow Rate FiO2 06/09/17 16:00 97.8 62 18 115/65 98 Room Air 06/09/17 12:00 97.5 65 18 125/65 100 Room Air 06/09/17 08:44 80 134/64 06/09/17 08:43 134/64 06/09/17 08:43 80 06/09/17 08:43 80 134/64 06/09/17 08:00 97.7 80 17 134/64 97 Room Air 06/09/17 07:18 69 16 Room Air 06/09/17 07:18 99 Room Air 06/09/17 07:18 Room Air 21 06/09/17 04:00 97.0 67 20 129/69 98 Room Air 06/08/17 23:36 97.7 61 19 145/73 96 Room Air 06/08/17 20:32 57 130/61 06/08/17 19:52 97.3 130 59 130/61 97 Room Air 06/08/17 19:15 98 Room Air 06/08/17 19:15 Room Air 06/08/17 19:15 60 16 Room Air 06/08/17 18:16 97.3 Objective HEAD AND NECK: Mild JVD. LUNGS: Decreased breath sounds. CARDIOVASCULAR: Shows regular S1 and S2 with no gallop or murmur. ICD in left subclavian intact. ABDOMEN: Soft. EXTREMITIES: No pitting edema. The left leg has a fracture. JADE GAYLE Jun 09, 2017 17:51
[2017-06-09 20:00] VITALS: BP 125/68
[2017-06-10] VITALS: BP 111/64
[2017-06-10] MEDS: Morphine Sulfate 4mg/ml Inj IVP PRN ×5 (03:07→21:50)
[2017-06-10 04:00] VITALS: BP 125/80
[2017-06-10 07:54] LABS: BASOPHILS % (AUTO) 0.9 % (0.0-2.0); EOSINOPHILS % (AUTO) 5.1 % (0.0-3.0); HEMATOCRIT 33.1 % (37.0-47.0); HEMOGLOBIN 10.5 G/DL (12.0-16.0); LYMPHOCYTES % (AUTO) 25.7 % (20.0-45.0); MEAN CORPUSCULAR VOLUME 87 FL (80-99); MONOCYTES % (AUTO) 11.1 % (1.0-10.0); NEUTROPHILS % (AUTO) 57.3 % (45.0-75.0); PLATELET COUNT 220 K/UL (150-450); RED CELL DISTRIBUTION WIDTH 17.6 % (11.6-14.8); WHITE BLOOD COUNT 6.9 K/UL (4.8-10.8)
[2017-06-10 07:59] LABS: ANION GAP 9 mmol/L (5-15); BLOOD UREA NITROGEN 19 mg/dL (7-18); CALCIUM 8.9 MG/DL (8.5-10.1); CARBON DIOXIDE 25 MMOL/L (21-32); CHLORIDE 110 MMOL/L (98-107); CREATININE 1.3 MG/DL (0.55-1.30); POTASSIUM 4.2 MMOL/L (3.5-5.1); SODIUM 144 MMOL/L (136-145)
[2017-06-10 08:00] VITALS: BP 128/72
[2017-06-10] MEDS: Lisinopril 10mg tab ORAL SCH (08:58)
[2017-06-10] MEDS: Carvedilol 25mg Tab ORAL SCH ×2 (08:58→21:39)
[2017-06-10] MEDS: Digoxin 0.125mg tab ORAL SCH (08:59)
[2017-06-10] MEDS: Heparin 5000 units/ml inj SUBQ SCH ×2 (09:00→21:43)
[2017-06-10 12:00] VITALS: BP 130/71
--- NOTE | 2017-06-10 14:59 | Cardiac Electrophysiology PN ---
Assessment/Plan Assessment/Plan 1. Status post Medtronic biventricular defibrillator implantation with Nl EF. 2. Chest pain, nonspecific. EKG shows left bundle-branch block and is not helpful. Rule out for myocardial infarction Echocardiogram showed EF 25%.Management per Dr Parada 3. CHF with Ef 25%. Dig, Coreg Lisinopril 4. Chronic kidney disease. 5. Chronic obstructive pulmonary disease and asthma. 6. Placement issue, Refusing to go back to [facility] she came from RN Subjective Subjective Comfortable in NAD. No chest pain or SOB. Objective Last 24 Hour Vital Signs Date Time Temp Pulse Resp B/P (MAP) Pulse Ox O2 Delivery O2 Flow Rate FiO2 06/10/17 12:00 98.0 70 18 130/71 96 Room Air 06/10/17 08:59 64 06/10/17 08:59 64 128/72 06/10/17 08:58 128/72 06/10/17 08:58 64 128/72 06/10/17 08:00 97.3 64 18 128/72 98 Room Air 06/10/17 07:28 97.7 06/10/17 04:00 97.7 69 20 125/80 98 Room Air 06/10/17 00:00 97.7 61 20 111/64 95 Room Air 06/09/17 22:38 72 125/68 06/09/17 20:18 72 16 Room Air 21 06/09/17 20:18 Room Air 21 06/09/17 20:18 99 Room Air 21 06/09/17 20:00 97.5 62 20 125/68 97 Room Air 06/09/17 16:00 97.8 62 18 115/65 98 Room Air Laboratory Tests Test 06/10/17 04:40 White Blood Count 6.9 K/UL (4.8-10.8) Red Blood Count 3.80 M/UL (4.20-5.40) L Hemoglobin 10.5 G/DL (12.0-16.0) L Hematocrit 33.1 % (37.0-47.0) L Mean Corpuscular Volume 87 FL (80-99) Mean Corpuscular Hemoglobin 27.5 PG (27.0-31.0) Mean Corpuscular Hemoglobin Concent 31.6 G/DL (32.0-36.0) L Red Cell Distribution Width 17.6 % (11.6-14.8) H Platelet Count 220 K/UL (150-450) Mean Platelet Volume 8.7 FL (6.5-10.1) Neutrophils (%) (Auto) 57.3 % (45.0-75.0) Lymphocytes (%) (Auto) 25.7 % (20.0-45.0) Monocytes (%) (Auto) 11.1 % (1.0-10.0) H Eosinophils (%) (Auto) 5.1 % (0.0-3.0) H Basophils (%) (Auto) 0.9 % (0.0-2.0) Sodium Level 144 MMOL/L (136-145) Potassium Level 4.2 MMOL/L (3.5-5.1) Chloride Level 110 MMOL/L (98-107) H Carbon Dioxide Level 25 MMOL/L (21-32) Anion Gap 9 mmol/L (5-15) Blood Urea Nitrogen 19 mg/dL (7-18) H Creatinine 1.3 MG/DL (0.55-1.30) Estimat Glomerular Filtration Rate 51.5 mL/min (>60) Glucose Level 82 MG/DL (74-106) Calcium Level 8.9 MG/DL (8.5-10.1) Objective HEAD AND NECK: Mild JVD. LUNGS: Decreased breath sounds. CARDIOVASCULAR: Regular S1 and S2 with no gallop or murmur. ICD in left subclavian intact. ABDOMEN: Soft. EXTREMITIES: No pitting edema. The left leg has a fracture. JADE GAYLE Jun 10, 2017 14:59
[2017-06-10 15:54] VITALS: BP 125/55
--- NOTE | 2017-06-10 17:05 | Pulmonology Progress Note ---
Assessment/Plan Problems: (1) Acute coronary syndrome (2) Slurring of speech (3) ICD (implantable cardioverter-defibrillator) in place (4) Drug abuse (5) Cardiomyopathy (6) Ankle fracture, left Assessment/Plan all noted neuro evaluation pending pt/ot case management looking for placement. Subjective ROS Limited/Unobtainable: No Interval Events: less short of breath Allergies: Coded Allergies: ASPIRIN (Unverified Allergy, Unknown, 10/13/14) PENICILLINS (Unverified Allergy, Unknown, 10/13/14) Objective Last 24 Hour Vital Signs Date Time Temp Pulse Resp B/P (MAP) Pulse Ox O2 Delivery O2 Flow Rate FiO2 06/10/17 15:54 97.9 59 21 125/55 97 Room Air 06/10/17 12:00 98.0 70 18 130/71 96 Room Air 06/10/17 08:59 64 06/10/17 08:59 64 128/72 06/10/17 08:58 128/72 06/10/17 08:58 64 128/72 06/10/17 08:00 97.3 64 18 128/72 98 Room Air 06/10/17 07:28 97.7 06/10/17 04:00 97.7 69 20 125/80 98 Room Air 06/10/17 00:00 97.7 61 20 111/64 95 Room Air 06/09/17 22:38 72 125/68 06/09/17 20:18 72 16 Room Air 21 06/09/17 20:18 Room Air 21 06/09/17 20:18 99 Room Air 21 06/09/17 20:00 97.5 62 20 125/68 97 Room Air Intake and Output 06/10/17 06/11/17 19:00 07:00 Intake Total 480 ml Balance 480 ml Intake Oral 480 ml # Bowel Movements 1 General Appearance: cachetic HEENT: normocephalic, atraumatic Respiratory/Chest: chest wall non-tender, lungs clear Breasts: no masses Cardiovascular: normal rate Abdomen: normal bowel sounds, soft, non tender Genitourinary: normal external genitalia Extremities: no cyanosis 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 Lymphatic: no neck adenopathy, no groin adenopathy Musculoskeletal: normal muscle bulk Laboratory Tests 06/10/17 04:40: White Blood Count 6.9, Red Blood Count 3.80L, Hemoglobin 10.5L, Hematocrit 33.1L , Mean Corpuscular Volume 87, Mean Corpuscular Hemoglobin 27.5, Mean Corpuscular Hemoglobin Concent 31.6L, Red Cell Distribution Width 17.6H, Platelet Count 220, Mean Platelet Volume 8.7, Neutrophils (%) (Auto) 57.3, Lymphocytes (%) (Auto) 25.7, Monocytes (%) (Auto) 11.1H, Eosinophils (%) (Auto) 5.1H, Basophils (%) (Auto) 0.9, Sodium Level 144, Potassium Level 4.2, Chloride Level 110H, Carbon Dioxide Level 25, Anion Gap 9, Blood Urea Nitrogen 19H, Creatinine 1.3, Estimat Glomerular Filtration Rate 51.5, Glucose Level 82, Calcium Level 8.9 Current Medications Medications (Trade) Dose Ordered Sig/Dino Route PRN Reason Start Time Stop Time Status Last Admin Dose Admin Acetaminophen (Tylenol) 650 mg Q4H PRN ORAL FEVER (temp > 100.5 F) 06/07/17 21:00 07/05/17 20:59 Albuterol/ Ipratropium (Albuterol/ Ipratropium) 3 ml Q4H PRN HHN Shortness of Breath 06/07/17 21:00 06/10/17 20:59 Amlodipine Besylate (Norvasc) 5 mg DAILY ORAL 06/08/17 09:00 07/06/17 08:59 06/10/17 08:59 Atorvastatin Calcium (Lipitor) 10 mg BEDTIME ORAL 06/07/17 22:00 07/05/17 21:59 06/09/17 22:38 Carvedilol (Coreg) 25 mg EVERY 12 HOURS ORAL 06/07/17 22:00 07/05/17 21:59 06/10/17 08:58 Clopidogrel Bisulfate (Plavix) 75 mg DAILY ORAL 06/08/17 09:00 07/06/17 08:59 06/10/17 08:57 Digoxin (Lanoxin) 0.125 mg DAILY ORAL 06/08/17 09:00 07/06/17 08:59 06/10/17 08:59 Enalaprilat (Vasotec) 2.5 mg Q6H PRN IV sbp more than 160 06/07/17 21:30 07/05/17 15:29 Heparin Sodium (Porcine) (Heparin 5000 units/ml) 5,000 units EVERY 12 HOURS SUBQ 06/07/17 22:00 07/05/17 21:59 06/09/17 08:44 Lisinopril (Zestril) 10 mg DAILY ORAL 06/08/17 09:00 07/05/17 17:59 06/10/17 08:58 Morphine Sulfate (Morphine Sulfate) 4 mg Q4H PRN IVP For Pain 06/07/17 22:30 06/12/17 22:29 06/10/17 13:35 Nitroglycerin (Ntg) 0.4 mg Every 5 Minutes PRN SL Prn Chest Pain 06/07/17 21:00 07/05/17 15:29 Ondansetron HCl (Zofran) 4 mg Q6H PRN IVP Nausea & Vomiting 06/08/17 00:30 07/08/17 00:29 06/10/17 13:35 Polyethylene Glycol (Miralax) 17 gm DAILYPRN PRN ORAL Constipation 06/07/17 21:30 07/07/17 21:29 Temazepam (Restoril) 15 mg HSPRN PRN ORAL Insomnia 06/07/17 21:00 06/14/17 20:59 06/09/17 22:38 BRENDA GRANGER Jun 10, 2017 17:05
[2017-06-10 20:00] VITALS: BP 143/83
[2017-06-11] VITALS: BP 155/85
[2017-06-11] MEDS: Morphine Sulfate 4mg/ml Inj IVP PRN (02:38)
[2017-06-11 04:00] VITALS: BP 150/84
[2017-06-11 08:15] VITALS: BP 165/75
[2017-06-11] MEDS: Carvedilol 25mg Tab ORAL SCH (08:30)
[2017-06-11] MEDS: Lisinopril 10mg tab ORAL SCH (08:30)
[2017-06-11] MEDS: Digoxin 0.125mg tab ORAL SCH (08:30)
[2017-06-11] MEDS ORDERED: Norco 5mg/325mg tab ORAL PRN (08:30)
[2017-06-11] MEDS: Heparin 5000 units/ml inj SUBQ SCH (08:32)
--- NOTE | 2017-06-11 10:43 | Cardiac Electrophysiology PN ---
Assessment/Plan Assessment/Plan 1. Status post Medtronic biventricular defibrillator implantation with Nl EF. 2. Chest pain, nonspecific. EKG shows left bundle-branch block and is not helpful. Rule out for myocardial infarction Echocardiogram showed EF 25%.Management per Dr Parada 3. CHF with Ef 25%. Dig, Coreg Lisinopril 4. Chronic kidney disease. 5. Chronic obstructive pulmonary disease and asthma. 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 DC to [facility] today Subjective Subjective Comfortable in NAD without chest pain or SOB.DC planning today. Objective Last 24 Hour Vital Signs Date Time Temp Pulse Resp B/P (MAP) Pulse Ox O2 Delivery O2 Flow Rate FiO2 06/11/17 08:30 160/75 06/11/17 08:30 65 06/11/17 08:30 65 160/75 06/11/17 08:30 65 160/75 06/11/17 08:15 98.4 65 19 165/75 100 Room Air 06/11/17 07:14 100 Room Air 21 06/11/17 07:14 66 16 Room Air 21 06/11/17 07:14 Room Air 21 06/11/17 04:00 97.7 67 20 150/84 99 Room Air 06/11/17 00:00 97.6 68 21 155/85 100 Room Air 06/10/17 23:07 Room Air 21 06/10/17 23:07 65 16 Room Air 21 06/10/17 23:07 99 Room Air 21 06/10/17 21:39 71 143/83 06/10/17 20:00 97.7 71 20 143/83 100 Room Air 06/10/17 15:54 97.9 59 21 125/55 97 Room Air 06/10/17 12:00 98.0 70 18 130/71 96 Room Air Intake and Output 06/11/17 06/12/17 19:00 07:00 Intake Total 240 ml Balance 240 ml Intake Oral 240 ml Objective HEAD AND NECK: Mild JVD. LUNGS: Decreased breath sounds. CARDIOVASCULAR: Regular S1 and S2 with no gallop or murmur. ICD in left subclavian intact. ABDOMEN: Soft. EXTREMITIES: No pitting edema. The left leg has a fracture. JADE GAYLE Jun 11, 2017 10:43
[2017-06-11 12:15] VITALS: BP 127/66
[2017-06-11 12:51] VITALS: BP 134/62
--- NOTE | 2017-06-11 14:59 | Pulmonology Progress Note ---
Assessment/Plan Problems: (1) Acute coronary syndrome (2) Slurring of speech (3) ICD (implantable cardioverter-defibrillator) in place (4) Drug abuse (5) Cardiomyopathy (6) Ankle fracture, left Assessment/Plan all noted neuro evaluation pending pt/ot case management looking for placement. [facility] will take her today Subjective ROS Limited/Unobtainable: No Constitutional: Reports: no symptoms HEENT: Repors: no symptoms Respiratory: Reports: no symptoms Allergies: Coded Allergies: ASPIRIN (Unverified Allergy, Unknown, 10/13/14) PENICILLINS (Unverified Allergy, Unknown, 10/13/14) Objective Last 24 Hour Vital Signs Date Time Temp Pulse Resp B/P (MAP) Pulse Ox O2 Delivery O2 Flow Rate FiO2 06/11/17 12:51 62 134/62 06/11/17 12:24 98.4 06/11/17 12:15 97.3 60 19 127/66 99 Room Air 06/11/17 08:30 160/75 06/11/17 08:30 65 06/11/17 08:30 65 160/75 06/11/17 08:30 65 160/75 06/11/17 08:15 98.4 65 19 165/75 100 Room Air 06/11/17 07:14 100 Room Air 06/11/17 07:14 66 16 Room Air 06/11/17 07:14 Room Air 06/11/17 04:00 97.7 67 20 150/84 99 Room Air 06/11/17 00:00 97.6 68 21 155/85 100 Room Air 06/10/17 23:07 Room Air 06/10/17 23:07 65 16 Room Air 21 06/10/17 23:07 99 Room Air 06/10/17 21:39 71 143/83 06/10/17 20:00 97.7 71 20 143/83 100 Room Air 06/10/17 15:54 97.9 59 21 125/55 97 Room Air Intake and Output 06/11/17 06/12/17 19:00 07:00 Intake Total 240 ml Balance 240 ml Intake Oral 240 ml General Appearance: WD/WN HEENT: normocephalic, atraumatic Respiratory/Chest: chest wall non-tender, lungs clear Breasts: no masses Cardiovascular: normal peripheral pulses Abdomen: normal bowel sounds, soft, non tender Genitourinary: normal external genitalia Skin: no rash Current Medications Medications (Trade) Dose Ordered Sig/Dino Route PRN Reason Start Time Stop Time Status Last Admin Dose Admin Acetaminophen (Tylenol) 650 mg Q4H PRN ORAL FEVER (temp > 100.5 F) 06/07/17 21:00 07/05/17 20:59 Acetaminophen/ Hydrocodone Bitart ([place] 5/325) 1 tab Q6H PRN ORAL PAIN 4-10 06/11/17 08:30 06/18/17 08:29 06/11/17 11:25 Amlodipine Besylate (Norvasc) 5 mg DAILY ORAL 06/08/17 09:00 07/06/17 08:59 06/11/17 08:30 Atorvastatin Calcium (Lipitor) 10 mg BEDTIME ORAL 06/07/17 22:00 07/05/17 21:59 06/10/17 21:39 Carvedilol (Coreg) 25 mg EVERY 12 HOURS ORAL 06/07/17 22:00 07/05/17 21:59 06/11/17 08:30 Clopidogrel Bisulfate (Plavix) 75 mg DAILY ORAL 06/08/17 09:00 07/06/17 08:59 06/11/17 08:30 Digoxin (Lanoxin) 0.125 mg DAILY ORAL 06/08/17 09:00 07/06/17 08:59 06/11/17 08:30 Enalaprilat (Vasotec) 2.5 mg Q6H PRN IV sbp more than 160 06/07/17 21:30 07/05/17 15:29 Heparin Sodium (Porcine) (Heparin 5000 units/ml) 5,000 units EVERY 12 HOURS SUBQ 06/07/17 22:00 07/05/17 21:59 06/11/17 08:32 Lisinopril (Zestril) 10 mg DAILY ORAL 06/08/17 09:00 07/05/17 17:59 06/11/17 08:30 Nitroglycerin (Ntg) 0.4 mg Every 5 Minutes PRN SL Prn Chest Pain 06/07/17 21:00 07/05/17 15:29 Ondansetron HCl (Zofran) 4 mg Q6H PRN IVP Nausea & Vomiting 06/08/17 00:30 07/08/17 00:29 06/10/17 21:48 Polyethylene Glycol (Miralax) 17 gm DAILYPRN PRN ORAL Constipation 06/07/17 21:30 07/07/17 21:29 Temazepam (Restoril) 15 mg HSPRN PRN ORAL Insomnia 06/07/17 21:00 06/14/17 20:59 06/09/17 22:38 BRENDA GRANGER Jun 11, 2017 14:59
--- NOTE | 2017-06-14 09:02 | Discharge Summary 2 SIG ---
DATE OF ADMISSION: 06/05/2017 DATE OF DISCHARGE: 06/11/2017 CONSULTANTS: 1. Otoniel Chapin M.D. 2. Ralph Parada M.D. BRIEF HOSPITAL COURSE: The patient is a 56-year-old female with past medical history of cardiomyopathy, ICD, COPD, and renal insufficiency, presented from intermediate due to complaints of one episode of slurred speech and erratic behavior. She had chest pain that is left sided and radiates to the left arm accompanied with shortness of breath and palpitations. On evaluation at ED, EKG was in normal sinus rhythm with left bundle-branch block. Chest x-ray showed cardiomegaly with pulmonary congestion and ICD noted on the left chest. She had a CT of the head that was negative for acute intracranial bleed or mass effect with mild prominence of extra axial CSF space, likely age related. She was admitted to telemetry for evaluation of acute coronary syndrome. She had a Medtronic defibrillator on the left chest. Interrogation was done and showed normal function and was given Lasix. She was started on prednisone and respiratory treatments. Digoxin was within normal limits and was continued on digoxin, Coreg, and lisinopril. Echocardiogram showed ejection fraction 25% and Medtronic biventricular defibrillator was with normal function. She has an x-ray done on the left fibula and tibia, which showed proximal tibial and fibular fractures in splint. Ankle x-ray did not show any acute pathology. She was given PT and OT and was recommended discharge back to SNF, however, the patient refused to go back to intermediate. She was referred to different SNFs and was eventually accepted to [facility]. FINAL DIAGNOSES: 1. Atypical chest pain. 2. Acute systolic heart failure. 3. Cardiomyopathy. 4. Status post Medtronic biventricular defibrillator. 5. Hyperlipidemia. 6. Left bundle-branch block. 7. Moderate pulmonary hypertension. 8. Moderate mitral regurgitation and tricuspid regurgitation. 9. Asthma/chronic obstructive pulmonary disease in acute exacerbation. 10. Slurred speech. 11. Possible transient ischemic attack, resolved. 12. Chronic renal insufficiency. 13. Obesity. 14. Noncompliance with medication regimen. The patient was advised to undergo stress test, however, stress test was canceled as the patient took caffeine. 15. Proximal tibial and fibular fracture on left leg. 16. Chronic kidney disease. 17. Status post Medtronic biventricular defibrillator implantation with normal function. 18. Obesity. 19. Cardiomyopathy. DISPOSITION: The patient was discharged to SNF. DISCHARGE MEDICATIONS: Refer to medication list. Mellisa Ko M.D. I have been assigned to dictate discharge summary on this account and I was not involved in the patient's management. Mi Cooney N.P. DR: Wanda JOB#: [id number] CC: KEN
--- NOTE | 2017-06-14 09:02 | Discharge Summary 2 SIG ---
DATE OF ADMISSION: 06/05/2017 DATE OF DISCHARGE: 06/11/2017 CONSULTANTS: 1. Otoniel Chapin M.D. 2. Ralph Parada M.D. BRIEF HOSPITAL COURSE: The patient is a 56-year-old female with past medical history of cardiomyopathy, ICD, COPD, and renal insufficiency, presented from [facility] living due to complaints of one episode of slurred speech and erratic behavior. She had chest pain that is left sided and radiates to the left arm accompanied with shortness of breath and palpitations. On evaluation at ED, EKG was in normal sinus rhythm with left bundle-branch block. Chest x-ray showed cardiomegaly with pulmonary congestion and ICD noted on the left chest. She had a CT of the head that was negative for acute intracranial bleed or mass effect with mild prominence of extra axial CSF space, likely age related. She was admitted to telemetry for evaluation of acute coronary syndrome. She had a Medtronic defibrillator on the left chest. Interrogation was done and showed normal function and was given Lasix. She was started on prednisone and respiratory treatments. Digoxin was within normal limits and was continued on digoxin, Coreg, and lisinopril. Echocardiogram showed ejection fraction 25% and Medtronic biventricular defibrillator was with normal function. She has an x-ray done on the left fibula and tibia, which showed proximal tibial and fibular fractures in splint. Ankle x-ray did not show any acute pathology. She was given PT and OT and was recommended discharge back to SNF, however, the patient refused to go back to senior living. She was referred to different SNFs and was eventually accepted to [facility]. FINAL DIAGNOSES: 1. Atypical chest pain. 2. Acute systolic heart failure. 3. Cardiomyopathy. 4. Status post Medtronic biventricular defibrillator. 5. Hyperlipidemia. 6. Left bundle-branch block. 7. Moderate pulmonary hypertension. 8. Moderate mitral regurgitation and tricuspid regurgitation. 9. Asthma/chronic obstructive pulmonary disease in acute exacerbation. 10. Slurred speech. 11. Possible transient ischemic attack, resolved. 12. Chronic renal insufficiency. 13. Obesity. 14. Noncompliance with medication regimen. The patient was advised to undergo stress test, however, stress test was canceled as the patient took caffeine. 15. Proximal tibial and fibular fracture on left leg. 16. Chronic kidney disease. 17. Status post Medtronic biventricular defibrillator implantation with normal function. 18. Obesity. 19. Cardiomyopathy. DISPOSITION: The patient was discharged to SNF. DISCHARGE MEDICATIONS: Refer to medication list. Mellisa Ko M.D. I have been assigned to dictate discharge summary on this account and I was not involved in the patient's management. Mi Cooney N.P. DR: Wanda JOB#: [id number] CC: KEN
== END 2017-06-11 15:35 | DRG 194 ==
LOC: EDBD 11:32 → EMR 12:20 → 2E 13:45 → EDBEDREQ 14:47 → 4E 06-07 20:45
DX: I50.21 Acute systolic (congestive) heart failure (principal); I24.9 Acute ischemic heart disease, unspecified; I42.9 Cardiomyopathy, unspecified; R47.81 Slurred speech; Z95.810 Presence of automatic (implantable) cardiac defibrillator; F19.10 Other psychoactive substance abuse, uncomplicated; I50.9 Heart failure, unspecified; J44.9 Chronic obstructive pulmonary disease, unspecified
CPT/HCPCS: 36415; 70450; 71010; 80048; 80053; 80061; 80162; 80307; 80329; 82550; 82553; 83880; 84439; 84443; 84484; 85025; 85610; 85730; 86140; 93005; 93306; 94640; 94664; 94760; 99285; J2405; J7620

== ENCOUNTER 2017-11-07 19:34 | Emergency (ER) | payer OTHER ==
[~2017-11-07] VITALS: Ht 162.6 cm; Wt 63.5 kg
[~2017-11-07 19:34] MED LIST changes: +ACETAMINOPHEN325 M1 ORAL; +ALBUTEROL S5 MG/1 ML IH; +AMIODARONE HCL400 M1 ORAL; +CARVEDILOL25 MG ORAL; +FERROUS SULFAT325 MG ORAL; +FUROSEMIDE20 M1 ORAL; +HYDROCODON-ACE1 EA13 ORAL; +IPRATROPIU0.2 MG/1 M HHN; +LISINOPRIL10 MG ORAL; +LISINOPRIL5 MG ORAL; +PLAVIX75 MG ORAL; +PROTONIX20 MG ORAL; +TYLENOL EXTRA500 MG ORAL; +XANAX0.25 MG ORAL; +ZOFRAN4 M3 ORAL
--- NOTE | 2017-11-07 19:42 | Emergency Room Report ---
History of Present Illness General Chief Complaint: Upper Respiratory Illness Source: Patient (Nitish Dos Santos ) Present Illness HPI Patient present with complaints of shortness of breath She reports that she feels like she has fluid on her lungs She has had that problem several times in the past Patient was not able to take her diuretic today She was [place] the bus stop and felt increasingly short of breath and presents by paramedics denies any chest pain with this denies any vomiting or diarrhea denies any recent travel or pleurisy (GideonNitish parks DO) Allergies: Coded Allergies: ACETAMINOPHEN (Unverified Allergy, Unknown, 11/07/17) ASPIRIN (Unverified Allergy, Unknown, 10/13/14) PENICILLINS (Unverified Allergy, Unknown, 10/13/14) Patient History Past Medical History: see triage record Pertinent Family History: none Now: No Reviewed Nursing Documentation: PMH: Agreed; PSxH: Agreed (GideonNitish parks DO) Nursing Documentation-PMH Hx Cardiac Problems: Yes Hx Hypertension: Yes Hx Pacemaker: Yes Hx Asthma: Yes Hx COPD: Yes Hx Cancer: No Hx Gastrointestinal Problems: No History Of Psychiatric Problem: Yes - Depression Hx Neurological Problems: No (Nitish Dos Santos DO) Review of Systems All Other Systems: negative except mentioned in HPI (DayanaNitish humphrey DO) Physical Exam Vital Signs Date Time Temp Pulse Resp B/P (MAP) Pulse Ox O2 Delivery O2 Flow Rate FiO2 11/07/17 19:30 97.7 90 14 106/74 96 Room Air 97.7 Sp02 EP Interpretation: reviewed, normal General Appearance: well appearing, no apparent distress Head: normocephalic, atraumatic Eyes: bilateral eye PERRL, bilateral eye EOMI ENT: hearing grossly normal, normal pharynx, TMs + canals normal, uvula midline Neck: full range of motion, supple, no meningismus, no bony tend Respiratory: lungs clear, normal breath sounds, no rhonchi, no respiratory distress, no retraction, no accessory muscle use Cardiovascular #1: normal peripheral pulses, regular rate, rhythm, no edema, no gallop, no JVD, no murmur Gastrointestinal: normal bowel sounds, non tender, soft, no mass, no organomegaly, non-distended, no guarding, no hernia, no pulsatile mass, no rebound Genitourinary: no CVA tenderness Musculoskeletal: normal inspection Neurologic: oriented x3, responsive, behavioral consultant III-XII nml as tested, motor strength/ tone normal, sensory intact Psychiatric: mood/affect normal Skin: normal color, no rash, warm/dry, palpation normal Lymphatic: normal inspection, no adenopathy (Nitish Dos Santos DO) Medical Decision Making Diagnostic Impression: Primary Impression: CHF (congestive heart failure) ER Course Patient is a fairly complex patient with multiple differential to consideration including but not limited to cardiac cardiopulmonary and vascular emergencies Patient's x-ray imaging does reveal cardiomegaly with pulmonary congestion patient provided with diuretics At this time requires further inpatient care (Nitish Dos Santos DO) ER Course I received signout from Dr. Dos Santos This is a 56-year-old female with shortness of breath, history of CHF. Here for CHF exacerbation. She got Lasix and Zofran. She is hemodynamically stable. Patient has been ambulating around the emergency room, speaking complete sentences Due to insurance purposes she will be transferred to [facility] I spoke with who has accepted patient for transfer Patient is stable for transfer Laboratory Tests Test 11/07/17 22:10 White Blood Count 7.7 K/UL (4.8-10.8) Red Blood Count 4.51 M/UL (4.20-5.40) Hemoglobin 10.7 G/DL (12.0-16.0) L Hematocrit 34.7 % (37.0-47.0) L Mean Corpuscular Volume 77 FL (80-99) L Mean Corpuscular Hemoglobin 23.8 PG (27.0-31.0) L Mean Corpuscular Hemoglobin Concent 30.9 G/DL (32.0-36.0) L Red Cell Distribution Width 19.1 % (11.6-14.8) H Platelet Count 309 K/UL (150-450) Mean Platelet Volume 7.2 FL (6.5-10.1) Neutrophils (%) (Auto) 63.0 % (45.0-75.0) Lymphocytes (%) (Auto) 28.9 % (20.0-45.0) Monocytes (%) (Auto) 3.6 % (1.0-10.0) Eosinophils (%) (Auto) 2.8 % (0.0-3.0) Basophils (%) (Auto) 1.7 % (0.0-2.0) Sodium Level 133 MMOL/L (136-145) L Potassium Level 4.2 MMOL/L (3.5-5.1) Chloride Level 101 MMOL/L (98-107) Carbon Dioxide Level 21 MMOL/L (21-32) Anion Gap 11 mmol/L (5-15) Blood Urea Nitrogen 22 mg/dL (7-18) H Creatinine 1.4 MG/DL (0.55-1.30) H Estimate Glomerular Filtration Rate 47.3 mL/min (>60) Glucose Level 78 MG/DL (74-106) Calcium Level 8.9 MG/DL (8.5-10.1) Total Bilirubin 0.5 MG/DL (0.2-1.0) Aspartate Amino Transferase (AST) 34 U/L (15-37) Alanine Aminotransferase (ALT) 22 U/L (12-78) Alkaline Phosphatase 138 U/L (46-116) H Total Creatine Kinase 92 U/L (26-308) Creatine Kinase MB 3.0 NG/ML (0.0-3.6) Creatine Kinase MB Relative Index 3.2 Troponin I 0.072 ng/mL (0.000-0.056) Pro-B-Type Natriuretic Peptide 8467 pg/mL (0-125) H Total Protein 8.0 G/DL (6.4-8.2) Albumin 3.6 G/DL (3.4-5.0) Globulin 4.4 g/dL Albumin/Globulin Ratio 0.8 (1.0-2.7) L (Clinton Ferguson M.D.) Rhythm Strip Diag. Results EP Interpretation: yes Rate: 110 Rhythm: no PVC's, no ectopy, other - Left bundle-branch block (Nitish Dos Santos DO) Chest X-Ray Diagnostic Results Chest X-Ray Diagnostic Results : Chest X-Ray Ordered: Yes # of Views/Limited/Complete: 1 View Indication: Shortness of Breath EP Interpretation: Yes Interpretation: no consolidation, no effusion, no pneumothorax, other - Cardiomegaly, pulmonary congesti Impression: Other - Acute CHF Electronically Signed by: Nitish Dos Santos DO (Nitish Dos Santos DO) Last Vital Signs Date Time Temp Pulse Resp B/P (MAP) Pulse Ox O2 Delivery O2 Flow Rate FiO2 11/07/17 19:30 97.7 90 14 106/74 96 Room Air 97.7 Status: improved (Nitish Dos Santos DO) Disposition: XFER [facility] HOS[facility] Condition: Serious Nitish Dos Santos DO Nov 07, 2017 19:42 Clinton Ferguson M.D. Nov 07, 2017 23:48
[2017-11-07] MEDS ORDERED: Furosemide 40mg tab ORAL ONE (19:45)
[2017-11-07] MEDS ORDERED: Norco 5mg/325mg tab ORAL ONE (22:15)
[2017-11-07 22:39] LABS: BASOPHILS % (AUTO) 1.7 % (0.0-2.0); EOSINOPHILS % (AUTO) 2.8 % (0.0-3.0); HEMATOCRIT 34.7 % (37.0-47.0); HEMOGLOBIN 10.7 G/DL (12.0-16.0); LYMPHOCYTES % (AUTO) 28.9 % (20.0-45.0); MEAN CORPUSCULAR VOLUME 77 FL (80-99); MONOCYTES % (AUTO) 3.6 % (1.0-10.0); PLATELET COUNT 309 K/UL (150-450); RED BLOOD COUNT 4.51 M/UL (4.20-5.40); RED CELL DISTRIBUTION WIDTH 19.1 % (11.6-14.8); WHITE BLOOD COUNT 7.7 K/UL (4.8-10.8)
[2017-11-07] MEDS ORDERED: ALPRAZolam 0.25mg tab ORAL PRN (22:45)
[2017-11-07] MEDS ORDERED: Miralax 17gm pkt ORAL PRN (22:45)
[2017-11-07] MEDS ORDERED: Albuterol/Ipratropium 3ml neb HHN PRN (22:45)
[2017-11-07 22:51] LABS: ANION GAP 11 mmol/L (5-15); BLOOD UREA NITROGEN 22 mg/dL (7-18); CALCIUM 8.9 MG/DL (8.5-10.1); CARBON DIOXIDE 21 MMOL/L (21-32); CHLORIDE 101 MMOL/L (98-107); CREATININE 1.4 MG/DL (0.55-1.30); POTASSIUM 4.2 MMOL/L (3.5-5.1); SODIUM 133 MMOL/L (136-145)
[2017-11-07 23:04] LABS: ALANINE AMINOTRANSFERASE 22 U/L (12-78); ALBUMIN 3.6 G/DL (3.4-5.0); ALBUMIN/GLOBULIN RATIO 0.8 (1.0-2.7); ALKALINE PHOSPHATASE 138 U/L (46-116); ASPARTATE AMINO TRANSFERASE 34 U/L (15-37); BILIRUBIN,TOTAL 0.5 MG/DL (0.2-1.0); CREATINE KINASE 92 U/L (26-308)
[2017-11-07] MEDS ORDERED: Morphine Sulfate 4mg/ml Inj IVP ONE (23:30)
[2017-11-08 01:21] VITALS: BP 116/74
[2017-11-08 02:35] VITALS: BP 116/74
[2017-11-08] MEDS ORDERED: Heparin 5000 units/ml inj SUBQ SCH (09:00)
[2017-11-08] MEDS ORDERED: Digoxin 0.125mg tab ORAL SCH (09:00)
[2017-11-08] MEDS ORDERED: Amiodarone 200mg tab ORAL SCH (09:00)
[2017-11-08] MEDS ORDERED: Carvedilol 25mg Tab ORAL SCH (09:00)
--- NOTE | 2017-11-08 10:33 | Diagnostic Imaging Report ---
Indication: Shortness of breath Technique: One view of the chest Comparison: 06/05/2017 Findings: Left chest biventricular AICD is again demonstrated. The heart is markedly enlarged. The lungs and pleural spaces are clear. Impression: Cardiomegaly, AICD. No acute process
== END 2017-11-08 02:37 | disposition short-term general hospital (02) ==
LOC: EDBD 19:34 → EMR 22:38
DX: I50.9 Heart failure, unspecified (principal); Z88.6 Allergy status to analgesic agent; Z88.0 Allergy status to penicillin; I11.0 Hypertensive heart disease with heart failure; Z95.0 Presence of cardiac pacemaker; J44.9 Chronic obstructive pulmonary disease, unspecified; F32.9 Major depressive disorder, single episode, unspecified
CPT/HCPCS: 36415; 71045; 80053; 82550; 82553; 83880; 84484; 85025; 93005; 99285; J2270; J2405